=== PATIENT | female | born 1940 | race Caucasian/White ===

== ENCOUNTER 2020-01-13 07:05 | Outpatient (CLI) | payer MEDICARE, OTHER, SELFPAY ==
[2020-01-13 07:59] LABS: Hemoglobin A1C 5.8 % (<5.7)
[2020-01-13 08:04] LABS: Alanine Aminotransferase 17 U/L (4-35); Albumin Level 4.3 g/dL (3.5-5.1); Alkaline Phosphatase 81 U/L (38-126); Aspartate Amino Transferase 27 U/L (14-36); Bilirubin,Total 0.6 mg/dL (0.2-1.3); Blood Urea Nitrogen 22 mg/dL (7-17); Calcium 9.2 mg/dL (8.4-10.2); Carbon Dioxide 31 mmol/L (22-30); Chloride 91 mmol/L (98-107); Cholesterol 225 mg/dL (0-200); Estimated Glomerular Filt Rate 53; Glucose 96 mg/dL (65-105); HDL Direct 79 mg/dL; Potassium 4.1 mmol/L (3.4-5.0); Sodium 129 mmol/L (137-145); Triglycerides 124 mg/dL (<150)
[2020-01-13 08:07] LABS: Alanine Aminotransferase 17 U/L (4-35); Albumin Level 4.3 g/dL (3.5-5.1); Alkaline Phosphatase 82 U/L (38-126); Aspartate Amino Transferase 27 U/L (14-36); Bilirubin,Total 0.5 mg/dL (0.2-1.3)
[2020-01-13 08:14] LABS: LDL Cholesterol Direct 99 mg/dL
== END 2020-01-13 07:06 | disposition home or self-care (01) ==
PROVIDERS: PCP Internal Medicine; Referring Provider Nurse Practitioner; Visit Provider Internal Medicine
DX: E78.5 Hyperlipidemia, unspecified (principal); I10 Essential (primary) hypertension; R11.0 Nausea; R73.02 Impaired glucose tolerance (oral)
CPT/HCPCS: 36415; 80053; 80061; 80076; 82248; 83036

== ENCOUNTER 2020-07-13 06:54 | Outpatient (CLI) | payer MEDICARE, OTHER, SELFPAY ==
[2020-07-13 08:09] LABS: Alanine Aminotransferase 16 U/L (4-35); Albumin Level 4.3 g/dL (3.5-5.1); Alkaline Phosphatase 80 U/L (38-126); Anion Gap 7 mmol/L (8-16); Aspartate Amino Transferase 29 U/L (14-36); Bilirubin,Total 0.6 mg/dL (0.2-1.3); Blood Urea Nitrogen 18 mg/dL (7-17); Calcium 9.5 mg/dL (8.4-10.2); Carbon Dioxide 32 mmol/L (22-30); Chloride 92 mmol/L (98-107); Cholesterol 233 mg/dL (0-200); Estimated Glomerular Filt Rate 60; Glucose 101 mg/dL (65-105); HDL Direct 71 mg/dL; Potassium 4.1 mmol/L (3.4-5.0); Sodium 131 mmol/L (137-145); Triglycerides 137 mg/dL (<150)
[2020-07-13 08:11] LABS: Hemoglobin A1C 5.2 % (<5.7)
[2020-07-13 08:20] LABS: LDL Cholesterol Direct 112 mg/dL
== END 2020-07-13 06:55 | disposition home or self-care (01) ==
PROVIDERS: PCP Internal Medicine; Visit Provider Internal Medicine
DX: E78.5 Hyperlipidemia, unspecified (principal); R73.02 Impaired glucose tolerance (oral); I10 Essential (primary) hypertension
CPT/HCPCS: 36415; 80053; 80061; 83036

== ENCOUNTER 2020-07-20 07:01 | Outpatient (CLI) | payer MEDICARE, OTHER, SELFPAY ==
--- NOTE | ~2020-07-20 | XR_ITS ---
EXAMINATION: XR foot RT min 3V DATE: 07/20/2020 07:27 INDICATION: Left foot pain post fall TECHNIQUE: Dorsoplantar, two oblique and lateral views of the left foot were obtained. COMPARISON: None. FINDINGS: Bone alignment is normal. Diffuse osteopenia. No fracture. Polyarticular osteoarthritis, moderate sev erity at the first metatarsophalangeal and third tarsal metatarsal joints and mild at multiple additi onal joints in the mid and forefeet. Moderate-sized plantar calcaneal spur. Soft tissues are unremark able. IMPRESSION: 1. Mild to moderate polyarticular osteoarthritis in the right foot. No acute osseous abnormality. Reviewed, dictated and finalized at location B. OR RESERVATIONS AGENT IMPRESSION: 1. Mild to moderate polyarticular osteoarthritis in the right foot. No acute os seous abnormality.
== END 2020-07-20 07:02 | disposition home or self-care (01) ==
PROVIDERS: PCP Internal Medicine; Visit Provider Internal Medicine
DX: M19.071 Primary osteoarthritis, right ankle and foot (principal); M85.871 Other specified disorders of bone density and structure, right ankle and foot
CPT/HCPCS: 73630

== ENCOUNTER 2021-01-10 06:52 | Outpatient (CLI) | payer MEDICARE, OTHER, SELFPAY ==
[2021-01-10 07:57] LABS: Hemoglobin A1C 5.5 % (<5.7)
[2021-01-10 07:58] LABS: Alanine Aminotransferase 16 U/L (4-35); Albumin Level 4.4 g/dL (3.5-5.1); Alkaline Phosphatase 84 U/L (38-126); Anion Gap 9 mmol/L (8-16); Aspartate Amino Transferase 31 U/L (14-36); Bilirubin,Total 0.5 mg/dL (0.2-1.3); Blood Urea Nitrogen 15 mg/dL (7-17); Calcium 9.7 mg/dL (8.4-10.2); Carbon Dioxide 29 mmol/L (22-30); Chloride 94 mmol/L (98-107); Estimated Glomerular Filt Rate 60; Glucose 96 mg/dL (65-105); Potassium 4.3 mmol/L (3.4-5.0); Sodium 132 mmol/L (137-145)
== END 2021-01-10 06:53 | disposition home or self-care (01) ==
LOC: ANHLAB 06:56
PROVIDERS: PCP Internal Medicine; Visit Provider Internal Medicine
DX: R73.02 Impaired glucose tolerance (oral) (principal); I10 Essential (primary) hypertension
CPT/HCPCS: 36415; 80053; 83036

== ENCOUNTER → 2021-07-15 03:56 | Outpatient (CLI) | payer MEDICARE, OTHER, SELFPAY ==
[2021-07-15 12:42] LABS: Influenza Control Positive
[2021-07-15 19:27] LABS: SARS-CoV-2 RNA PCR Negative
== END ==
PROVIDERS: PCP Internal Medicine; Visit Provider Internal Medicine
DX: Z20.822 Contact with and (suspected) exposure to COVID-19 (principal)
CPT/HCPCS: 87804; C9803; U0003; U0005

== ENCOUNTER 2021-07-22 06:47 | Outpatient (CLI) | payer MEDICARE, OTHER, SELFPAY ==
[2021-07-22 07:37] LABS: Alanine Aminotransferase 26 U/L (4-35); Albumin Level 4.3 g/dL (3.5-5.1); Alkaline Phosphatase 89 U/L (38-126); Anion Gap 5 mmol/L (8-16); Aspartate Amino Transferase 30 U/L (14-36); Bilirubin,Total 0.5 mg/dL (0.2-1.3); Blood Urea Nitrogen 14 mg/dL (7-17); Calcium 9.4 mg/dL (8.4-10.2); Carbon Dioxide 33 mmol/L (22-30); Chloride 100 mmol/L (98-107); Cholesterol 180 mg/dL (0-200); Estimated Glomerular Filt Rate 60; Glucose 100 mg/dL (65-110); HDL Direct 64 mg/dL; Potassium 4.3 mmol/L (3.4-5.0); Sodium 138 mmol/L (137-145); Triglycerides 103 mg/dL (<150)
[2021-07-22 07:49] LABS: LDL Cholesterol Direct 80 mg/dL
[2021-07-22 08:17] LABS: Vitamin D 25 Hydroxy 70.3 ng/mL
[2021-07-22 09:22] LABS: Hemoglobin A1C 5.5 % (<5.7)
== END 2021-07-22 06:48 | disposition home or self-care (01) ==
PROVIDERS: PCP Internal Medicine; Visit Provider Nurse Practitioner
DX: R73.02 Impaired glucose tolerance (oral) (principal); E78.5 Hyperlipidemia, unspecified; Z13.21 Encounter for screening for nutritional disorder
CPT/HCPCS: 36415; 80053; 80061; 82306; 83036

== ENCOUNTER 2021-11-28 06:42 | Outpatient (CLI) | payer MEDICARE, OTHER, SELFPAY ==
[2021-11-28 07:23] LABS: Alanine Aminotransferase 16 U/L (4-35); Albumin Level 4.3 g/dL (3.5-5.1); Alkaline Phosphatase 98 U/L (38-126); Anion Gap 3 mmol/L (8-16); Aspartate Amino Transferase 31 U/L (14-36); Bilirubin,Total 0.6 mg/dL (0.2-1.3); Blood Urea Nitrogen 19 mg/dL (7-17); Carbon Dioxide 30 mmol/L (22-30); Chloride 102 mmol/L (98-107); Cholesterol 235 mg/dL (0-200); Estimated Glomerular Filt Rate 60; Glucose 92 mg/dL (65-110); HDL Direct 70 mg/dL; Potassium 4.6 mmol/L (3.4-5.0); Sodium 135 mmol/L (137-145); Triglycerides 102 mg/dL (<150)
[2021-11-28 07:34] LABS: LDL Cholesterol Direct 109 mg/dL
[2021-11-28 08:15] LABS: Hemoglobin A1C 5.4 % (<5.7)
[2021-11-28 08:51] LABS: Vitamin D 25 Hydroxy 49.3 ng/mL
== END 2021-11-28 06:43 | disposition home or self-care (01) ==
LOC: ANHLAB 06:45
PROVIDERS: PCP Internal Medicine; Visit Provider Internal Medicine
DX: R73.02 Impaired glucose tolerance (oral) (principal); I10 Essential (primary) hypertension; E78.5 Hyperlipidemia, unspecified; E55.9 Vitamin D deficiency, unspecified
CPT/HCPCS: 36415; 80053; 80061; 82306; 83036

== ENCOUNTER 2021-12-05 11:05 | Emergency (ER) | payer MEDICARE, OTHER, SELFPAY ==
--- NOTE | ~2021-12-05 | XR_ITS ---
EXAMINATION: XR ankle RT min 3V INDICATION: Right ankle pain TECHNIQUE: Four views of the right ankle are obtained. COMPARISON: None available FINDINGS: There is medial soft tissue swelling of ankle. Bone alignment is normal. There is no fractu re. A plantar calcaneal enthesophyte is noted. IMPRESSION: 1. Medial soft tissue swelling of ankle without acute osseous abnormality. Reviewed, dictated and finalized at location A.
--- NOTE | ~2021-12-05 | XR_ITS ---
EXAMINATION: XR knee RT 3V DATE: 12/05/2021 11:33 INDICATION: Right knee pain TECHNIQUE: Three views of the right knee were obtained. COMPARISON: None. FINDINGS: Alignment is normal. No fracture or osteochondral lesion. There are changes of total knee a rthroplasty. No joint effusion/synovitis. Soft tissues are unremarkable. IMPRESSION: 1. No acute osseous abnormality. Reviewed, dictated and finalized at location A.
[2021-12-05 11:12] VITALS: BP 160/85; PULSE 90; RESP 20; TEMP 36.9; O2SAT 98
--- NOTE | 2021-12-05 12:22 | ED.LOWEXIN ---
HPI - Extremity Injury (Lower) General Chief Complaint: Extremity Injury, Lower Stated Complaint: R knee/ankle pain Time Seen by Provider: 12/05/21 12:04 Source: RN notes reviewed History of Present Illness HPI Narrative: Patient presents emergency department from home for right knee and ankle pain. Patient states she has a history of chronic nerve deficits in the bilateral lower legs from previous back surgery she states that yesterday she had been twisting when she felt a pain in her right knee and ankle she states she did not fall to the ground but did twisted both of them she notes pain in these areas since that time she states she has been able to ambulate and did take Tylenol this morning for the pain she denies any hip pain or back pain denies any fevers or chills Related Data Home Medications Medication Instructions Recorded Confirmed Bacillus coagulans 10 billion cell cell PO 07/08/19 11/22/21 capsule,delayed release albuterol sulfate 90 mcg/actuation 2 puff INHALATION Q4H PRN gm 07/08/19 11/22/21 aerosol inhaler carboxymethylcellulose 0.5 1 drop EACH EYE BID 07/08/19 11/22/21 %-glycerin 0.9 % eye drops docusate sodium 50 mg capsule 50 mg PO DAILY 07/08/19 11/22/21 zdtqxzgc-pnk-gsdlp acid 0.4 1 tablet PO DAILY 07/08/19 11/22/21 mg-lycopene 300 mcg-lutein 250 mcg tablet umeclidinium 62.5 mcg-vilanterol 1 inhalation INHALATION DAILY 07/08/19 11/22/21 25 mcg/actuation powdr for inhalation meloxicam 15 mg tablet 15 mg PO DAILY 01/13/20 11/22/21 acetaminophen 650 mg 650 mg PO Q8H 07/26/21 11/22/21 tablet,extended release Allergies Allergy/AdvReac Type Severity Reaction Status Date / Time codeine Allergy Intermediate Syncope Verified 12/05/21 11:15 hydrocodone Allergy Unknown syncope Verified 12/05/21 11:15 Review of Systems Review of Systems: Gen.: Denies fevers or chills Musculoskeletal: See HPI Neuro: Reports chronic lower extremity numbness Skin: Denies rash Endo: Denies DM PMFSH Past Medical History Medical History (Updated 12/05/21 @ 12:24 by Izaiah Boyd DO) Chronic back pain COPD (chronic obstructive pulmonary disease) Essential hypertension Gastroesophageal reflux disease Herpes zoster without complication Hyperlipemia Impaired glucose tolerance Peripheral polyneuropathy Family History Family History Mother Family history of osteoporosis Father Acute myocardial infarction, Onset Age: 83 Patient's father is Sibling Family history of lymphoma Family history of malignant neoplasm of male breast Social History Social History Smoking packs per day: 1 Smoking cigarettes per day: 20.0 Years smoked: 15 Smoking pack-years: 15.00 Smoking status: Former smoker Tobacco type: cigarettes Smoking end date: 08/06/95 Alcohol intake: current Alcohol use details: social Substance use: never Substance use type: does not use Exam Narrative: APPEARANCE: No acute distress, nontoxic, resting in bed Eyes: EOMI HEENT: Normocephalic, atraumatic, RESPIRATORY: No respiratory distress MUSCULOSKELETAl: Tender palpation of the right lateral knee no swelling or ecchymosis no tenderness of the anterior medial or posterior knee full range of motion without pain no tenderness palpation of the right anterior lateral or medial ankle mild swelling over the lateral ankle no tenderness of the remaining area of the foot dorsalis pedis pulse 2+ patient with peripheral neuropathy in the bilateral lower extremities from knees down NEURO: Awake and alert. Following commands, speech normal, no focal deficits SKIN:: Warm, dry. Normal Color no rash or lesions Course Course Emergency Course: Discussed with patient results of workup and diagnosis. Discussed need for follow-up with primary care, proper use of medication, and reasons to return to the emergency dep
== END 2021-12-05 12:35 | disposition home or self-care (01) ==
PROVIDERS: Emergency Provider Emergency Medicine; PCP Internal Medicine
DX: S96.911A Strain of unspecified muscle and tendon at ankle and foot level, right foot, initial encounter (principal); S83.91XA Sprain of unspecified site of right knee, initial encounter; J44.9 Chronic obstructive pulmonary disease, unspecified; I10 Essential (primary) hypertension; K21.9 Gastro-esophageal reflux disease without esophagitis; E78.5 Hyperlipidemia, unspecified; G62.9 Polyneuropathy, unspecified; Z87.891 Personal history of nicotine dependence; X50.9XXA Other and unspecified overexertion or strenuous movements or postures, initial encounter
CPT/HCPCS: 73562; 73610; 99284

== ENCOUNTER 2022-04-10 15:07 | Emergency (ER) | payer MEDICARE, OTHER, SELFPAY ==
--- NOTE | ~2022-04-10 | XR_ITS ---
EXAM: XR knee RT min 4V DATE: 04/10/2022 16:24 HISTORY: pain, spasms . COMPARISON: None available. FINDINGS: Decreased mineralization. Right knee arthroplasty. No fracture or dislocation. No lytic or blastic lesion. Joint spaces are maintained. No erosion or periosteal change. Soft tissues within no rmal limits. IMPRESSION: No acute osseous finding in the right knee. Reviewed, dictated and finalized at location K.
[2022-04-10 15:09] VITALS: BP 212/114; PULSE 87; RESP 18; TEMP 36.7; O2SAT 100
--- NOTE | 2022-04-10 15:58 | ED.LOWEXIN ---
HPI - Extremity Injury (Lower) General Chief Complaint: Extremity Injury, Lower Stated Complaint: right knee pain Time Seen by Provider: 04/10/22 15:30 Source: patient Mode of arrival: ambulatory Limitations: no limitations History of Present Illness HPI Narrative: Patient is an 81-year-old female who presents to ED with report of right knee pain. Patient reports a history of nerve damage and numbness in her lower back and BLE, particularly her RLE, from a previous spinal surgery. Around 2 am this morning she developed pain in her R anterior knee. She states the pain in her knee radiates up to her mid thigh and down to her mid oneill. No pain in R hip or ankle. Pain is episodic and electric shock spasm-like, occurring several times a minute. She has been taking Tylenol today for this without relief. No recent injury, fall, strenuous activity. Patient uses a walker for assistance with ambulation. No significant swelling. No fevers. Otherwise recently has been in her normal state of health. Related Data Home Medications Medication Instructions Recorded Confirmed Bacillus coagulans 10 billion cell cell PO 07/08/19 03/28/22 capsule,delayed release (Probiotic (B. coagulans)) albuterol sulfate 90 mcg/actuation 2 puff inhalation Q4H PRN 07/08/19 03/28/22 aerosol inhaler (ProAir HFA) carboxymethylcellulose 0.5 1 drop ophthalmic (eye) BID 07/08/19 03/28/22 %-glycerin 0.9 % eye drops (Refresh Optive) docusate sodium 50 mg capsule 50 mg PO DAILY 07/08/19 03/28/22 (Colace Clear) jrpvrwev-olg-hlstv acid 0.4 1 tablet PO DAILY 07/08/19 03/28/22 mg-lycopene 300 mcg-lutein 250 mcg tablet (Centrum Silver) umeclidinium 62.5 mcg-vilanterol 1 inhalation inhalation DAILY 07/08/19 03/28/22 25 mcg/actuation powdr for inhalation (Anoro Ellipta) meloxicam 15 mg tablet 15 mg PO DAILY 01/13/20 03/28/22 acetaminophen 650 mg 650 mg PO Q8H 07/26/21 03/28/22 tablet,extended release (Tylenol 8 Hour) Allergies Allergy/AdvReac Type Severity Reaction Status Date / Time codeine Allergy Intermediate Syncope Verified 04/10/22 15:12 hydrocodone Allergy Unknown syncope Verified 04/10/22 15:12 Review of Systems Review of Systems: CONSTITUTIONAL: Denies fever, chills, or sweats. CARDIOVASCULAR: Denies chest pain. RESPIRATORY: Denies dyspnea. GASTROINTESTINAL: Denies nausea, vomiting. SKIN: Denies swelling of R knee. MUSCULOSKELETAL: Reports R knee pain and spasms. Denies R ankle/hip pain. All systems reviewed & are unremarkable except as noted in HPI and below PMFSH Past Medical History Medical History (Updated 04/10/22 @ 17:36 by Kenya Quevedo PA-C) Acquired right foot drop Chronic back pain COPD (chronic obstructive pulmonary disease) Essential hypertension Gastroesophageal reflux disease Herpes zoster without complication Hyperlipemia Impaired glucose tolerance Knee pain Lumbar back pain with radiculopathy affecting lower extremity Muscle spasms of lower extremity Peripheral polyneuropathy Surgical History Surgical History (Updated 04/10/22 @ 16:29 by Kenya Quevedo PA-C) History of spinal surgery Family History Family History Mother Family history of osteoporosis Father Acute myocardial infarction, Onset Age: 83 Patient's father is Sibling Family history of lymphoma Family history of malignant neoplasm of male breast Social History Social History Smoking packs per day: 1 Smoking cigarettes per day: 20.0 Years smoked: 15 Smoking pack-years: 15.00 Smoking status: Former smoker Tobacco type: cigarettes Smoking end date: 08/06/95 Alcohol intake: never Substance use type: does not use Gender identity (if verbalized by the patient): Female Exam Narrative: GENERAL: Well appearing, well-nourished, non-toxic, in mild acute distress. Sitting in w
[2022-04-10] MEDS: diazePAM INJ (*CRX) 10 MG/2 ML SYRINGE 2 MG IM (16:21)
[2022-04-10 18:05] VITALS: BP 204/93; PULSE 71; RESP 20; O2SAT 100
== END 2022-04-10 18:06 | disposition home or self-care (01) ==
PROVIDERS: Emergency Provider Emergency Medicine; PCP Internal Medicine
DX: M25.561 Pain in right knee (principal); M62.838 Other muscle spasm; J44.9 Chronic obstructive pulmonary disease, unspecified; I10 Essential (primary) hypertension; K21.9 Gastro-esophageal reflux disease without esophagitis; E78.5 Hyperlipidemia, unspecified; G62.9 Polyneuropathy, unspecified; Z87.891 Personal history of nicotine dependence
CPT/HCPCS: 73564; 96372; 99283; J3360

== ENCOUNTER 2022-07-14 06:41 | Outpatient (CLI) | payer MEDICARE, OTHER, SELFPAY ==
[2022-07-14 07:42] LABS: Alanine Aminotransferase 21 U/L (6-35); Albumin Level 4.5 g/dL (3.5-5.1); Alkaline Phosphatase 97 U/L (38-126); Anion Gap 2 mmol/L (8-16); Aspartate Amino Transferase 28 U/L (14-36); Bilirubin,Total 0.7 mg/dL (0.2-1.3); Blood Urea Nitrogen 17 mg/dL (7-17); Calcium 8.9 mg/dL (8.4-10.2); Carbon Dioxide 34 mmol/L (22-30); Chloride 101 mmol/L (98-107); Cholesterol 228 mg/dL (0-200); Estimated Glomerular Filt Rate 60; Glucose 89 mg/dL (65-110); HDL Direct 74 mg/dL; Potassium 4.3 mmol/L (3.4-5.0); Sodium 137 mmol/L (137-145); Triglycerides 98 mg/dL (<150)
[2022-07-14 07:53] LABS: LDL Cholesterol Direct 106 mg/dL
[2022-07-14 08:45] LABS: Hemoglobin A1C 5.6 % (<5.7)
== END 2022-07-14 06:42 | disposition home or self-care (01) ==
PROVIDERS: PCP Internal Medicine; Visit Provider Internal Medicine
DX: E78.5 Hyperlipidemia, unspecified (principal); I10 Essential (primary) hypertension; R73.02 Impaired glucose tolerance (oral)
CPT/HCPCS: 36415; 80053; 80061; 83036

== ENCOUNTER 2023-01-19 06:35 | Outpatient (CLI) | payer MEDICARE, OTHER, SELFPAY ==
[2023-01-19 07:12] LABS: Alanine Aminotransferase 23 U/L (6-35); Albumin Level 4.3 g/dL (3.5-5.1); Alkaline Phosphatase 91 U/L (38-126); Anion Gap 4 mmol/L (8-16); Aspartate Amino Transferase 31 U/L (14-36); Bilirubin,Total 0.6 mg/dL (0.2-1.3); Blood Urea Nitrogen 19 mg/dL (7-17); Calcium 8.8 mg/dL (8.4-10.2); Carbon Dioxide 32 mmol/L (22-30); Chloride 97 mmol/L (98-107); Cholesterol 208 mg/dL (0-200); Estimated Glomerular Filt Rate > 60; Glucose 88 mg/dL (65-110); HDL Direct 73 mg/dL; Potassium 4.2 mmol/L (3.4-5.0); Sodium 133 mmol/L (137-145); Triglycerides 149 mg/dL (<150)
[2023-01-19 07:23] LABS: LDL Cholesterol Direct 102 mg/dL
[2023-01-19 07:29] LABS: Vitamin D 25 Hydroxy 40.8 ng/mL
[2023-01-19 11:17] LABS: Hemoglobin A1C 5.5 % (<5.7)
== END 2023-01-19 06:36 | disposition home or self-care (01) ==
PROVIDERS: PCP Family Medicine; Visit Provider Internal Medicine
DX: E55.9 Vitamin D deficiency, unspecified (principal); E78.5 Hyperlipidemia, unspecified; I10 Essential (primary) hypertension; R73.02 Impaired glucose tolerance (oral)
CPT/HCPCS: 36415; 80053; 80061; 82306; 83036

== ENCOUNTER 2023-05-30 08:44 | Outpatient (CLI) | payer MEDICARE, OTHER, SELFPAY ==
--- NOTE | ~2023-05-30 | DEXA_ITS ---
Bone Density Report Name: SATISH VELEZ Age: 82 Sex: Female Ethnicity: White Date of : 1940 Indication: postmenopausal; screening for osteoporosis; height loss; hysterectomy; Referring Provider: MARYLIN ROJAS Study: Bone densitometry was performed. Exam Date: May 30, 2023 Accession number: [id number] Bone Density: Region BMD T-score Z-score Classification Femoral Neck (Left) 0.713 -1.2 1.2 Osteopenia Total Hip (Left) 0.822 -1.0 1.3 Normal Femoral Neck (Right) 0.820 -0.3 2.2 Normal Total Hip (Right) 0.953 0.1 2.3 Normal Total Hip Mean 0.888 -0.5 1.8 Normal World Health Organization criteria for BMD impression classify patients as: Normal (T-score at or above -1.0), Osteopenia (T-score between -1.0 and -2.5), or Osteoporosis (T-score at or below -2.5). 10-year Fracture Risk(1): Major Osteoporotic Fracture 11% Hip Fracture 2.6% Reported Risk Factors: [place] (), Neck BMD=0.713, BMI=35.7 (1) FRAX(R) Version 3.08. Fracture probability calculated for an untreated patient. Fracture probability may be lower if the patient has received treatment. Clinical Information Provided by Patient: Has used the following medications: Vitamin D, Calcium Has the following medical conditions: Hysterectomy Patient maximum height was 63 Does not regularly consume dairy products Drinks caffeinated beverages Onset of menses at age 15 Number of children 4 Impression: The patient has low bone mass, based on the Left Femoral Neck T-score. The patient has an estimated ten-year risk of hip fracture of 2.6% and an estimated ten-year risk of major fracture of 11%, based on the WHO FRAX algorithm. Discussion: BONE DENSITY IS LOW AT ONE OR MORE SKELETAL SITES. This patient's lowest T-score is low at one or more skeletal sites. It meets the World Health Organization's (WHO) criteria for ?low bone mass? (T-score between -1.0 and -2.5). The patient's 10-year risk of fracture as calculated by FRAX is less than the threshold where pharmacological therapy is recommended by the National Osteoporosis Foundation (NOF). However, all treatment decisions require clinical judgment and consideration of individual patient factors, including patient preferences, comorbidities, previous drug use, risk factors not captured in the FRAX model (e.g., frailty, falls, vitamin D deficiency, increased bone turnover, interval significant decline in bone density) and possible under or overestimation of fracture risk by FRAX. The patient should follow a healthful lifestyle (good nutrition with adequate calcium and vitamin D, and appropriate weight-bearing exercise). Follow-Up: Consider repeating this study in 2 to 3 years to reassess this patient's status, or sooner if there is some new clinical indication. Reported by: QUIN on 10
== END 2023-05-30 08:45 | disposition home or self-care (01) ==
LOC: ANHIMG 08:45
PROVIDERS: PCP Family Medicine; Visit Provider Nurse Practitioner Family
DX: M85.80 Other specified disorders of bone density and structure, unspecified site (principal); Z78.0 Asymptomatic menopausal state
CPT/HCPCS: 77080

== ENCOUNTER 2023-07-16 06:46 | Outpatient (CLI) | payer MEDICARE, OTHER, SELFPAY ==
[2023-07-16 07:41] LABS: Basophils Percent Auto 0.7 % (0.2-1.2); Eosinophils Absolute Auto 0.1 K/mm3 (0-0.3); Eosinophils Percent Auto 1.8 % (0-4.4); Hemoglobin 14.1 g/dL (12.0-15.0); Immature Granulocyte Absolute 0.02 K/mm3 (0.00-0.031); Immature Granulocyte Percent A 0.3 % (0-0.5); Lymphocytes Absolute Auto 1.84 K/mm3 (0.9-3.2); Lymphocytes Percent Auto 30.6 % (18.3-44.2); Mean Corpuscular HGB Conc 32.8 g/dl (32-36); Mean Corpuscular Hemoglobin 29.9 pg (26-34); Mean Corpuscular Volume 91.3 fl (80-100); Mean Platelet Volume 9.5 fl (7.4-10.4); Monocytes Absolute Auto 0.5 K/mm3 (0.1-0.6); Monocytes Percent Auto 8.2 % (2.6-8.5); Neutrophils Absolute Auto 3.5 K/mm3 (1.3-6.7); Neutrophils Percent Auto 58.4 % (45.5-73.1); Platelet Count Result 209 k/mm3 (150-375); Red Blood Count 4.71 M/mm3 (4.2-5.4); Red Cell Distribution Width 13.4 % (11.5-14.5)
[2023-07-16 07:51] LABS: Alanine Aminotransferase 18 U/L (6-35); Albumin Level 4.2 g/dL (3.5-5.1); Alkaline Phosphatase 90 U/L (38-126); Anion Gap 4 mmol/L (8-16); Aspartate Amino Transferase 26 U/L (14-36); Bilirubin,Total 0.6 mg/dL (0.2-1.3); Blood Urea Nitrogen 17 mg/dL (7-17); Carbon Dioxide 30 mmol/L (22-30); Chloride 100 mmol/L (98-107); Estimated Glomerular Filt Rate 60; Glucose 85 mg/dL (65-110); Potassium 4.4 mmol/L (3.4-5.0); Sodium 134 mmol/L (137-145)
[2023-07-16 09:14] LABS: Appearance Urine Clear (Clear); Bilirubin Urine Negative (Negative); Blood Urine Negative (Negative); Color Urine Yellow (Yellow); Glucose Urine UA Negative (Negative); Ketones Urine Negative (Negative); Leukocyte Esterase Ur Negative LEU/UL (NEGATIVE); Nitrate Urine Negative (Negative); Protein Urine Negative (Negative); Urobilinogen Urine 0.2 mg/dL (<2.0)
[2023-07-16 09:16] LABS: Add Urine Microscopic? NO
[2023-07-16 09:49] LABS: Creatinine Urine 50.7 mg/dL
[2023-07-16 09:54] LABS: MALB Creatinine Ratio 19.5 mg/g (0-30); Microalbumin Urine Random 9.9 mg/L (0-16.7)
== END 2023-07-16 06:47 | disposition home or self-care (01) ==
PROVIDERS: PCP Family Medicine; Visit Provider Nurse Practitioner Family
DX: E78.5 Hyperlipidemia, unspecified (principal); I10 Essential (primary) hypertension; G62.9 Polyneuropathy, unspecified; J44.9 Chronic obstructive pulmonary disease, unspecified
CPT/HCPCS: 36415; 80053; 81003; 82043; 85025

== ENCOUNTER 2024-01-25 07:06 | Outpatient (CLI) | payer MEDICARE, SELFPAY ==
[2024-01-25 08:23] LABS: Alanine Aminotransferase 19 U/L (6-35); Albumin Level 4.5 g/dL (3.5-5.1); Alkaline Phosphatase 84 U/L (38-126); Anion Gap 7 mmol/L (4-12); Aspartate Amino Transferase 27 U/L (14-36); Bilirubin,Total 0.6 mg/dL (0.2-1.3); Blood Urea Nitrogen 15 mg/dL (7-17); Calcium 9.2 mg/dL (8.4-10.2); Carbon Dioxide 28 mmol/L (22-30); Chloride 101 mmol/L (98-107); Cholesterol 239 mg/dL (0-200); Estimated Glomerular Filt Rate > 60; Glucose 81 mg/dL (65-110); HDL Direct 86 mg/dL; Potassium 4.2 mmol/L (3.4-5.0); Sodium 136 mmol/L (137-145); Triglycerides 130 mg/dL (<150)
[2024-01-25 08:33] LABS: LDL Cholesterol Direct 115 mg/dL
== END 2024-01-25 07:07 | disposition home or self-care (01) ==
PROVIDERS: PCP Family Medicine; Visit Provider Nurse Practitioner Family
DX: E78.5 Hyperlipidemia, unspecified (principal); G62.9 Polyneuropathy, unspecified; G89.29 Other chronic pain; I10 Essential (primary) hypertension; J44.9 Chronic obstructive pulmonary disease, unspecified; K21.9 Gastro-esophageal reflux disease without esophagitis; M21.371 Foot drop, right foot; M54.16 Radiculopathy, lumbar region; M54.9 Dorsalgia, unspecified; M62.838 Other muscle spasm; Z98.890 Other specified postprocedural states
CPT/HCPCS: 36415; 80053; 80061

== ENCOUNTER 2024-05-26 06:40 | Outpatient (CLI) | payer MEDICARE, SELFPAY ==
[2024-05-26 07:30] LABS: Basophils Percent Auto 0.3 % (0.2-1.2); Eosinophils Absolute Auto 0.1 K/mm3 (0-0.3); Eosinophils Percent Auto 1.5 % (0-4.4); Hematocrit 41.4 % (37.0-47.0); Hemoglobin 13.9 g/dL (12.0-15.0); Immature Granulocyte Absolute 0.02 K/mm3 (0.00-0.031); Immature Granulocyte Percent A 0.3 % (0-0.5); Lymphocytes Absolute Auto 1.99 K/mm3 (0.9-3.2); Mean Corpuscular HGB Conc 33.6 g/dl (32-36); Mean Corpuscular Volume 92.2 fl (80-100); Mean Platelet Volume 9.2 fl (7.4-10.4); Monocytes Absolute Auto 0.5 K/mm3 (0.1-0.6); Monocytes Percent Auto 8.3 % (2.6-8.5); Neutrophils Absolute Auto 3.4 K/mm3 (1.3-6.7); Neutrophils Percent Auto 56.6 % (45.5-73.1); Platelet Count Result 224 k/mm3 (150-375); Red Blood Count 4.49 M/mm3 (4.2-5.4); Red Cell Distribution Width 13.5 % (11.5-14.5)
[2024-05-26 08:09] LABS: Alanine Aminotransferase 14 U/L (6-35); Albumin Level 4.2 g/dL (3.5-5.1); Alkaline Phosphatase 73 U/L (38-126); Anion Gap 7 mmol/L (4-12); Aspartate Amino Transferase 25 U/L (14-36); Bilirubin,Total 0.7 mg/dL (0.2-1.3); Blood Urea Nitrogen 17 mg/dL (7-17); Calcium 9.3 mg/dL (8.4-10.2); Carbon Dioxide 28 mmol/L (22-30); Chloride 97 mmol/L (98-107); Cholesterol 245 mg/dL (0-200); Estimated Glomerular Filt Rate > 60; Glucose 87 mg/dL (65-110); HDL Direct 79 mg/dL; Potassium 4.2 mmol/L (3.4-5.0); Sodium 132 mmol/L (137-145); Triglycerides 129 mg/dL (<150)
[2024-05-26 08:14] LABS: LDL Cholesterol Direct 111 mg/dL
[2024-05-26 08:38] LABS: Vitamin D 25 Hydroxy 37.3 ng/mL
== END 2024-05-26 06:41 | disposition home or self-care (01) ==
PROVIDERS: PCP Nurse Practitioner Family; Visit Provider Nurse Practitioner Family
DX: E78.5 Hyperlipidemia, unspecified (principal); G62.9 Polyneuropathy, unspecified; G89.29 Other chronic pain; I10 Essential (primary) hypertension; J44.9 Chronic obstructive pulmonary disease, unspecified; K21.9 Gastro-esophageal reflux disease without esophagitis; M21.371 Foot drop, right foot; M54.16 Radiculopathy, lumbar region; M54.9 Dorsalgia, unspecified; M62.838 Other muscle spasm; Z98.890 Other specified postprocedural states; Z79.899 Other long term (current) drug therapy
CPT/HCPCS: 36415; 80053; 80061; 82306; 85025

== ENCOUNTER 2024-06-14 11:06 | Observation (INO) | payer MEDICARE, SELFPAY ==
[2024-06-14] VITALS (15 sets, daily range): BP systolic 144–202; BP diastolic 55–100; PULSE 70–94; RESP 15–19; TEMP 36.4–36.6; O2SAT 97–100; BMI 37.3
--- NOTE | ~2024-06-14 | MR_ITS ---
MRI of the brain Clinical History: CVA Technique: Axial and sagittal T1-weighted images were acquired. These were followed by axial T2-weigh malaika, diffusion weighted, gradient, and FLAIR images. Findings: There is no acute infarct, intracranial hemorrhage, or mass lesion. There is moderate chron ic white matter changes in the periventricular white matter bilaterally and maciel. Ventricles and subarachnoid spaces are mildly dilated. Orbits are unremarkable. Paranasal sinuses and mastoid air cells are clear. Major intracranial flow voids are intact. Sagittal midline structures are intact. IMPRESSION: No acute infarct, intracranial hemorrhage, or mass lesion. Moderate chronic microvascular ischemic change and mild generalized atrophy. Reviewed, dictated and finalized at [facility]. REPLACEMENT ORDERER
--- NOTE | ~2024-06-14 | CT_ITS ---
EXAMINATION: CTA brain carotid DATE: 06/15/2024 21:12 INDICATION: transient ischemic attack, cerebrovascular diseas TECHNIQUE: Computed tomographic angiography (CTA) of the head and neck was performed with 100 mL Omni paque-350 intravenous contrast. Automated exposure control and iterative reconstruction technique wer e employed. The dose-length product was 855.67 mGy-cm. Maximum intensity projection and volume render ed 3D-reconstructions were created by the technologist on a separate workstation. COMPARISON: CT brain 06/14/2024; MR brain 06/15/2024. 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 No large vessel occlusion, high flow vascular malfo rmation, nidus or extravasation. Atherosclerotic calcifications of the cavernous carotids bilaterally , greater on the right, where there is also a short segment moderate stenosis. Short segment severe s tenosis in the distal aspect of the right P1 segment. Patent cerebral veins. Symmetric parenchymal en hancement. CTA NECK: Aortic arch and proximal great vessels: Normal arch anatomy. Moderate arch calcification.. Right common carotid, carotid bifurcation, and internal carotid artery: Minimal calcified plaque at t he bifurcation.There is 0% stenosis of the proximal right internal carotid artery relative to normal distal artery lumen diameter (NASCET criteria). Left common carotid, carotid bifurcation, and internal carotid artery: Mild calcified and noncalcifie d plaque at the bifurcation.There is 0% stenosis of the proximal left internal carotid artery relativ e to normal distal artery lumen diameter (NASCET criteria). Vertebral arteries: No significant plaque or stenosis. Left vertebral artery is dominant. Other findings: Cervical spondylosis. Degenerative change in the bilateral TMJs. Stable somewhat spon giform appearing calcification in the inferior bilateral maxillary sinuses, likely calcified inspissa malaika mucus. Emphysematous changes in the lungs. 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 Short segment severe stenosis in the distal right P1 segment. No large vessel intracranial occlusion. No carotid or vertebral artery occlusion, dissection, or significant stenosis. Reviewed, dictated and finalized at location K. A CLASS LINEMAN
--- NOTE | ~2024-06-14 | CT_ITS ---
EXAMINATION: CTA chest PE protocol DATE: 06/14/2024 12:55 INDICATION: Syncope. TECHNIQUE: Computed tomography angiography (CTA) of the chest was performed with 100 mL Omnipaque-350 intravenous contrast timed to evaluate the pulmonary arteries. Coronal maximum intensity projection 3D-reconstructions were created by the technologist. Automated exposure control and iterative reconst ruction technique were employed. The dose-length product was 784.19 mGy-cm. COMPARISON: None. FINDINGS: There is moderate emphysema. Calcified right lung nodules are consistent with old granuloma tous disease. There is mild atelectasis bilaterally. No pleural effusion. The heart size is normal. T here are coronary artery calcifications. No pericardial effusion. There is no pulmonary embolus. Ther e is a moderate-sized sliding hiatal hernia. There is severe cervical spondylosis and mild thoracic s pondylosis. There are changes of posterior fusion procedure in lumbar spine. There are lucencies arou nd the L2 screws, consistent with loosening. IMPRESSION: 1. No pulmonary embolus. 2. Moderate emphysema. 3. Moderate-sized sliding hiatal hernia. 4. Lucencies around the L2 screws, consistent with loosening. Reviewed, dictated and finalized at location A. ICAL SUPPLIES STERILIZER
--- NOTE | ~2024-06-14 | CT_ITS ---
EXAMINATION: CT brain wo con DATE: 06/14/2024 12:55 INDICATION: Syncope. TECHNIQUE: Computed tomography (CT) of the head was performed without intravenous contrast. The mA wa s adjusted according to patient size. Iterative reconstruction technique was employed. The dose-lengt h product was 529.67 mGy-cm. COMPARISON: None FINDINGS: There are scattered areas of low attenuation in the cerebral white matter. There is no intr acranial hemorrhage, acute infarction, or abnormal intracranial mass lesion. There is a prominent per ivascular space in the left basal ganglia. The ventricles are normal in size. The paranasal sinuses a re clear. There are likely changes of ocular lens replacement surgeries. The mastoid air cells are no rmal. IMPRESSION: 1. Moderate nonspecific cerebral white matter disease, which likely represents chronic small vessel i schemic disease. Reviewed, dictated and finalized at location A. STER RECOVERY ANALYST IMPRESSION: 1. Moderate nonspecific cerebral white matter disease, which likely represents chronic small vessel ischemic disease.
--- NOTE | ~2024-06-14 | US_ITS ---
Procedure: Duplex Doppler examination of the bilateral carotids. Indication: Syncope Technique: Real time, color-flow and pulse wave Doppler examination of the bilateral carotids was performed. Findings: Hudson scale ultrasonography of the right neck demonstrated no significant plaque. There was demonstrat ion of normal color-flow and Doppler waveforms within the right common, internal and external carotid arteries. The peak systolic velocities in the right common, internal and external carotid arteries w ere demonstrated to be 64 cm/sec, 86 cm/sec and 81 cm/sec respectively. The right ICA/CCA ratio was 1 .3.The proximal right internal carotid artery demonstrates 0% stenosis relative to the normal distal artery lumen diameter. Hudson scale sonography of the left neck demonstrated no significant plaque. There was demonstration of normal color-flow and wave forms within the left common, internal and external carotid arteries. The peak systolic velocities in the left common, internal and external carotid arteries were demonstrate d to be 91cm/sec, 86 cm/sec and 77 cm/sec respectively. The left ICA/CCA ratio was 1.3. The proximal left internal carotid artery demonstrates 0% stenosis relative to the normal distal artery lumen diam eter. There was antegrade flow demonstrated in the bilateral vertebral arteries. Impression: No hemodynamically significant stenosis of the bilateral internal carotid arteries. Antegrade flow in the bilateral vertebral arteries. Note: The methodology used is an indirect measurement validated against a direct method (such as the NASCET criteria) that compares diameters at the stenosis to the distal ICA. Reviewed, dictated and finalized at location . TAL DIRECTOR Impression: No hemodynamically significant stenosis of the bilateral internal carotid arter ies. Antegrade flow in the bilateral vertebral arteries. Note: The methodology used is an indirect measurement validated against a direct meth od (such as the NASCET criteria) that compares diameters at the stenosis to the distal ICA.
--- NOTE | 2024-06-14 11:19 | ED.GENADULT ---
HPI - General Adult General Chief complaint: Syncope Stated complaint: syncopy History of Present Illness HPI narrative: 83-year-old female presents emergency department for evaluation for a prolonged syncopal episode. Patient had a shower this morning after getting out of shower she had onset of lightheaded and dizziness. Patient laid down on the bed and was reportedly unconscious for approximately 30 minutes. Patient states that she remembers telling her that she felt poorly and the next thing she remembers she was in the back of the ambulance. EMS crew states that when they initially got seen patient was unresponsive but she did began to gain responsiveness as they were loading her in to the trach. Upon arrival emergency department patient is back to her baseline. Patient denies any pain or complaints. Related Data Home Medications Medication Instructions Recorded Confirmed Bacillus coagulans 10 billion cell 1,000,000 cell PO BID 07/08/19 06/14/24 capsule,delayed release (Probiotic (B. coagulans)) carboxymethylcellulose 0.5 1 drop ophthalmic (eye) BID PRN 07/08/19 06/14/24 %-glycerin 0.9 % eye drops Dry Eyes (Refresh Optive) blgvfuhv-dci-ytyzt acid 0.4 1 tablet PO DAILY 07/08/19 06/14/24 mg-lycopene 300 mcg-lutein 250 mcg tablet (Centrum Silver) umeclidinium 62.5 mcg-vilanterol 1 inhalation inhalation DAILY 07/08/19 06/14/24 25 mcg/actuation powdr for inhalation (Anoro Ellipta) meloxicam 15 mg tablet 15 mg PO QAM 01/13/20 06/14/24 acetaminophen 650 mg 650 mg PO BID 07/26/21 06/14/24 tablet,extended release (Tylenol 8 Hour) albuterol sulfate 90 mcg/actuation 2 puff inhalation DAILY PRN 05/28/24 06/14/24 aerosol inhaler (ProAir HFA) Respiratory Distress cephalexin 500 mg capsule 500 mg PO Q12H 05/28/24 06/14/24 fluticasone propionate 50 1 spray intranasal BID PRN sinus 06/14/24 06/14/24 mcg/actuation nasal allergy spray,suspension (Allergy Relief (fluticasone)) Allergies Allergy/AdvReac Type Severity Reaction Status Date / Time codeine Allergy Intermediate Syncope Verified 06/14/24 11:16 hydrocodone Allergy Unknown syncope Verified 06/14/24 11:16 Review of Systems Review of Systems: All systems reviewed & are unremarkable except as noted in HPI and below PMFSH Past Medical History Medical History Acquired right foot drop Anxiety Chronic back pain Chronic hyponatremia Chronic obstructive pulmonary disease Degenerative joint disease Diverticulitis Essential hypertension Gastroesophageal reflux disease Herpes zoster without complication Hyperlipemia Impaired glucose tolerance Peripheral polyneuropathy Restless leg syndrome Surgical History Surgical History History of arthroplasty of left knee (2009) History of bladder suspension procedure History of cataract extraction with lens replacement History of hysterectomy History of lumbar fusion Family History Family History Mother Family history of osteoporosis Father Acute myocardial infarction, Onset Age: 83 Patient's father is Sibling Family history of lymphoma Family history of malignant neoplasm of male breast Social History Social History Social History: Surrogate medical decision maker: Lucho Braswell, spouse. Code status: Full code. Smoking packs per day: 1 Smoking cigarettes per day: 20.0 Years smoked: 15 Smoking pack-years: 15.00 Smoking status: Former smoker Alcohol intake: never Substance use: never Substance use type: does not use Do You Feel Safe in your Home?: Yes Lack of Transportation: No Lack of Food: Never True Current Housing: I Have Housing Concerned About Future Housing: No Difficulty Paying Gas/Electric Bills: No Difficulty Paying for Meds: No Currently Unemployed: No Education: High School Diploma/GED Difficulty w/ Childcare or Family Care: No Living arrangements: with family Occupation/Education: retired Spiritual care concerns: No Agree to blood products: Yes Exam Narrative: APPEARANCE: Well appearing, no pain, no distress, well-nourished. HEAD: normocephalic, atraumatic. EYES: PERRLA/EOMI, conjunctivae clear. NOSE: Normal no drainage EARS:TMS clear with good light reflex. THROAT: Pharynx clear, no exudate. NECK: Supple. No adenopathy, no masses. RESPIRATORY: Airway patent, respirations nonlabored. Clear to auscultation bilaterally, no rales, rhonchi, wheezing. CARDIOVASCULAR: Regular rate and rhythm without murmurs rubs or gallops. ABDOMINAL: Soft, nontender, nondistended, normal bowel sounds MUSCULOSKELETAL: Moves all extremities. Strength/ROM intact, No edema, No calf tenderness. NEURO: Alert. Cranial nerves II through XII intact. grossly intact SKIN: Warm, dry. Normal Color Course Vital Signs Vital signs: Vital Signs Temperature 97.9 F 06/14/24 11:03 Pulse Rate 85 06/14/24 11:03 Respiratory Rate 16 06/14/24 11:03 Blood Pressure 178/65 H 06/14/24 11:03 Pulse Oximetry 100 06/14/24 11:03 Oxygen Delivery Room Air 06/14/24 11:03 Temperature 97.9 F 06/14/24 11:03 Pulse Rate 80 06/14/24 14:00 Respiratory Rate 16 06/14/24 14:00 Blood Pressure 180/70 H 06/14/24 14:00 Pulse Oximetry 97 06/14/24 14:00 Oxygen Delivery Room Air 06/14/24 11:03 Medical Decision Making [facility] Narrative Medical decision making narrative: [age] old female presents emergency department for evaluation for a prolonged syncopal episode. Patient is afebrile with no leukocytosis and a stable hemoglobin of 14.2 no significant abnormalities on the CMP UA was negative for infection patient was negative for influenza RSV and COVID. CTA was negative for pulmonary embolism head CT was negative for acute intracranial abnormality. Due to the prolonged duration of the patient's syncope I discussed case with hospitalist patient was accepted to [facility]. Differential Diagnosis Differential Diagnosis: ACS, cardiac arrhythmia, TIA, CVA, syncope, seizure Vital Signs Vital Signs: Vital Signs Temperature 97.9 F 06/14/24 11:03 Pulse Rate 85 06/14/24 11:03 Respiratory Rate 16 06/14/24 11:03 Blood Pressure 178/65 H 06/14/24 11:03 Pulse Oximetry 100 06/14/24 11:03 Oxygen Delivery Room Air 06/14/24 11:03 Temperature 97.9 F 06/14/24 11:03 Pulse Rate 80 06/14/24 14:00 Respiratory Rate 16 06/14/24 14:00 Blood Pressure 180/70 H 06/14/24 14:00 Pulse Oximetry 97 06/14/24 14:00 Oxygen Delivery Room Air 06/14/24 11:03 Lab Data Lab results reviewed: Yes I reviewed the patient's lab results. 06/14/24 15:38 06/14/24 11:32 Labs: Lab Results 06/14/24 06/14/24 Range/Units 11:32 12:16 PT 13.2 (11.1-14.7) Seconds INR 1.0 APTT 29.0 (22.3-36.8) Seconds Sodium 131 L (137-145) mmol/L Potassium 4.2 (3.4-5.0) mmol/L Chloride 97 L (98-107) mmol/L Carbon Dioxide 26 (22-30) mmol/L Anion Gap 8 (4-12) mmol/L BUN 15 (7-17) mg/dL Creatinine 0.90 (0.7-1.0) mg/dL Estim Creat Clear Calc 45 ml/min Estimated GFR 60 (59 - ) Glucose 145 H (65-110) mg/dL Lactic Acid 2.3 H (0.7-2.0) mmol/L Calcium 8.9 (8.4-10.2) mg/dL Magnesium 2.3 (1.6-2.3) mg/dL Total Bilirubin 0.7 (0.2-1.3) mg/dL AST 27 (14-36) U/L ALT 17 (6-35) U/L Alkaline Phosphatase 63 (38-126) U/L Total Protein 7.0 (6.3-8.2) g/dL Albumin 4.2 (3.5-5.1) g/dL Urine Color Dark yellow (Yellow) Urine Appearance Cloudy H (Clear) Urine pH 6.0 (5.0-9.0) Ur Specific [place] 1.034 (1.001-1.035) Urine Protein 2+ H (Negative) mg/dL Urine Glucose (UA) Negative (Negative) mg/dL Urine Ketones Trace H (Negative) mg/dL Ur Blood (Man) Negative (Negative) Urine Nitrate Negative (Negative) Urine Bilirubin 1+ H (Negative) Urine Urobilinogen 1.0 (<2.0) mg/dL Add Ur Microanalysis Reviewed Leukocyte Esterase Rfl Negative (Negative) IGNACIO/UL Urine RBC 3-5 H (0-2) /hpf Urine WBC 0-5 (0-3) /hpf Ur Squamous Epith Cells Occasional (Few) /hpf Urine Bacteria None seen /hpf Urine Casts >20 Influenza A (RT-PCR) Negative (Negative) Influenza B (RT-PCR) Negative (Negative) RSV (RT-PCR) Negative (Negative) SARS-CoV-2 RNA (RT-PCR) Negative (Negative) Imaging Data Radiologist's impression: Impressions Head CT 06/14/24 13:04 IMPRESSION: 1. Moderate nonspecific cerebral white matter disease, which likely represents chronic small vessel ischemic disease. Chest CTA 06/14/24 13:05 IMPRESSION: 1. No pulmonary embolus. 2. Moderate emphysema. 3. Moderate-sized sliding hiatal hernia. 4. Lucencies around the L2 screws, consistent with loosening. Discharge Plan Discharge Clinical Impression: Episode of syncope Patient Disposition: Still a Patient Condition: Serious
[2024-06-14 12:00] LABS: Prothrombin Time 13.2 Seconds (11.1-14.7)
[2024-06-14 12:02] LABS: Lactic Acid Reflex 2.3 mmol/L (0.7-2.0)
[2024-06-14 12:03] LABS: Alanine Aminotransferase 17 U/L (6-35); Albumin Level 4.2 g/dL (3.5-5.1); Alkaline Phosphatase 63 U/L (38-126); Anion Gap 8 mmol/L (4-12); Aspartate Amino Transferase 27 U/L (14-36); Bilirubin,Total 0.7 mg/dL (0.2-1.3); Blood Urea Nitrogen 15 mg/dL (7-17); Calcium 8.9 mg/dL (8.4-10.2); Carbon Dioxide 26 mmol/L (22-30); Chloride 97 mmol/L (98-107); Estimated CRCL calculation 45 ml/min; Estimated Glomerular Filt Rate 60; Glucose 145 mg/dL (65-110); Magnesium 2.3 mg/dL (1.6-2.3); Potassium 4.2 mmol/L (3.4-5.0); Sodium 131 mmol/L (137-145)
[2024-06-14 12:22] LABS: Influenza A QL RT-PCR Negative (Negative); Influenza B QL RT-PCR Negative (Negative); RSV RNA, RT-PCR Negative (Negative); SARS-CoV-2 RNA PCR Negative (Negative)
[2024-06-14 12:29] LABS: Add Urine Microscopic? YES; Appearance Urine Cloudy (Clear); Bacteria Urine None Seen /hpf; Bilirubin Urine 1+ (Negative); Blood Urine Negative (Negative); Color Urine Dark Yellow (Yellow); Glucose Urine UA Negative (Negative); Ketones Urine Trace mg/dL (Negative); Leukocyte Esterase Ur Negative LEU/UL (Negative); Need Manual Microscopic Reviewed; Nitrate Urine Negative (Negative); Non Pathogenic Casts >20; Protein Urine 2+ mg/dL (Negative); Specific Grav Ur 1.034 (1.001-1.035); Squamous Epithelial Cell Urine Occasional /hpf (Few); WBC Urine 0-5 /hpf (0-3)
--- NOTE | 2024-06-14 12:29 | ECG_ITS ---
Test Date: 2024-06-14 11:11:16 Measurements Intervals [place] Rate: 85 P: 43 TN: 150 QRS: -10 QRSD: 84 T: 22 QT: 340 QTc: 405 Interpretive Statements SINUS RHYTHM BORDERLINE T WAVE ABNORMALITY- ANTERIOR LEADS BASELINE ARTIFACT- I, III, AVR, AVL, AVF BORDERLINE ECG No previous ECG available for comparison Electronically Signed On 06-14-2024 16:16:59 LEAD CUSTODIAN by Angus Taylor D.O.
--- NOTE | 2024-06-14 13:25 | P.HP_ITS ---
H&P: HPI History of Present Illness Date/Time: 06/14/24 14:30 Chief Complaint: Syncope. Narrative: This is an 83-year-old female with chronic obstructive pulmonary disease, anxiety, and gastroesophageal reflux disease who presented to the emergency department via EMS from home for evaluation after syncopal episode. The patient and her spouse provides the following history. She was in her usual state of health when she got up this morning, ate breakfast, and watch some television with her . She then took a shower which was uneventful however while she was getting out of the shower she began to feel weak and dizzy and yelled for her . He heard what sounded like the shower door being slammed shut and found the patient sitting on the toilet. She then slumped forward and went unresponsive. states that her color was normal and she was not cold, clammy, or diaphoretic. He called 911 and by the time EMS arrived approximately 9 minutes later she was still unresponsive. She was breathing however and had a good pulse. EMS placed her on a cot and got her in the ambulance and within a short period of time she came to and was alert and oriented. There were no reports of seizure-like activity or bowel or bladder incontinence. The patient does not remember calling for her or telling him that she was dizzy. She does not recall having any symptoms of vertigo, visual changes, focal weakness, paresthesias, chest pain, palpitations, shortness of breath, nausea, or vomiting. She had a previous episode of syncope several years ago which she attributed to the heat and she was never worked up for that. She has not had any recent change in medications. She has not had sensations of racing heart or irregular heart rhythm. Blood pressures have been running quite high since admission to the floor, worse in the supine position. When standing however her pulse increased by at least 20 points and her systolic blood pressure decreased by 30 points. With further questioning she does report having neuropathy symptoms in her right leg since having lumbar surgery 9 years ago. That surgery was complicated by infection requiring multiple surgeries and she is on long- term cephalexin for suppression. It is not unusual for that right leg to have tremors which are uncontrollable. She has mild footdrop but is able to ambulate with a walker. She reports that her hands and feet are very cold but that is not a new finding. She has occasional paresthesias over the right trunk which has occurred more recently. She has not had any falls and denies balance issues. No muscle stiffness or rigidity. She denies vision changes, facial droop, and difficulty speaking and swallowing. No emotional lability. She does not have problems controlling her bowel or bladder. In the ED: Vital signs on arrival include a blood pressure 178/65, pulse 85, respiratory 16, SpO2 100% room air, temperature 97.9?.. Labs were significant for a sodium of 131, chloride 97, glucose 145, lactic acid 2.3. Urinalysis was positive for 2+ protein, trace ketones, 1+ bilirubin, 3 to 5 RBC, and greater than 20 casts per high-power field. She tested negative for influenza, RSV, and COVID. Head CT showed moderate nonspecific cerebral white matter disease but no acute findings. Chest CTA was negative for pulmonary embolus. EKG showed a sinus rhythm with no significant ST depressions or elevations. She is being admitted to the floor in this setting for a syncopal workup. Review of Systems Review of Systems: 12 systems were reviewed and are negativ e except for as per HPI. [facility] Past Medical History Medical History Acquired right foot drop Anxiety Chronic back pain Chronic hyponatremia Chronic obstructive pulmonary disease Degenerative joint disease Diverticulitis Essential hypertension Gastroesophageal reflux disease Herpes zoster without complication Hyperlipemia Impaired glucose tolerance Peripheral polyneuropathy Restless leg syndrome Surgical History Surgical History History of arthroplasty of left knee (2009) History of bladder suspension procedure History of cataract extraction with lens replacement History of hysterectomy History of lumbar fusion Family History Family History Mother Family history of osteoporosis Father Acute myocardial infarction, Onset Age: 83 Patient's father is Sibling Family history of lymphoma Family history of malignant neoplasm of male breast Social History Social History Social History: Surrogate medical decision maker: Lucho Braswell, spouse. Code status: Full code. Smoking packs per day: 1 Smoking cigarettes per day: 20.0 Years smoked: 15 Smoking pack-years: 15.00 Smoking status: Former smoker Alcohol intake: never Substance use: never Substance use type: does not use Do You Feel Safe in your Home?: Yes Lack of Transportation: No Lack of Food: Never True Current Housing: I Have Housing Concerned About Future Housing: No Difficulty Paying Gas/Electric Bills: No Difficulty Paying for Meds: No Currently Unemployed: No Education: High School Diploma/GED Difficulty w/ Childcare or Family Care: No Living arrangements: with family Occupation/Education: retired Spiritual care concerns: No Agree to blood products: Yes Meds Home Medications and Allergies Home Medications Medication Instructions Recorded Confirmed Type Bacillus coagulans 10 billion cell 1,000,000 cell PO BID 07/08/19 06/14/24 History capsule,delayed release (Probiotic (B. coagulans)) carboxymethylcellulose 0.5 1 drop ophthalmic (eye) BID PRN 07/08/19 06/14/24 History %-glycerin 0.9 % eye drops Dry Eyes (Refresh Optive) wnxywlaw-vhq-dukqq acid 0.4 1 tablet PO DAILY 07/08/19 06/14/24 History mg-lycopene 300 mcg-lutein 250 mcg tablet (Centrum Silver) umeclidinium 62.5 mcg-vilanterol 1 inhalation inhalation DAILY 07/08/19 06/14/24 History 25 mcg/actuation powdr for inhalation (Anoro Ellipta) meloxicam 15 mg tablet 15 mg PO QAM 01/13/20 06/14/24 History acetaminophen 650 mg 650 mg PO BID 07/26/21 06/14/24 History tablet,extended release (Tylenol 8 Hour) albuterol sulfate 90 mcg/actuation 2 puff inhalation DAILY PRN 05/28/24 06/14/24 History aerosol inhaler (ProAir HFA) Respiratory Distress cephalexin 500 mg capsule 500 mg PO Q12H 05/28/24 06/14/24 History diazepam 2 mg tablet (Valium) 2 mg PO BID PRN muscle spasm #30 05/28/24 06/14/24 Rx tabs omeprazole 20 mg capsule,delayed See Rx Instructions .Route 05/28/24 06/14/24 Rx release .COMPLEX #90 caps lorazepam 1 mg tablet (Ativan) 1 mg PO ONCE PRN agitation #1 06/02/24 06/14/24 Rx tablet fluticasone propionate 50 1 spray intranasal BID PRN sinus 06/14/24 06/14/24 History mcg/actuation nasal allergy spray,suspension (Allergy Relief (fluticasone)) Allergies Allergy/AdvReac Type Severity Reaction Status Date / Time codeine Allergy Intermediate Syncope Verified 06/14/24 11:16 hydrocodone Allergy Unknown syncope Verified 06/14/24 11:16 Vital Signs Vital Signs - 24 hr 06/14/24 11:03 Temperature 97.9 F Pulse Rate 85 Respiratory Rate 16 Blood Pressure 178/65 H Pulse Oximetry 100 Oxygen Delivery Room Air Exam Narrative: General: Well-developed female in the semi-Alejandra position in bed in no acute distress. Weight: 95.5 kg. BMI: 37.3. HEENT: PERRL, EOMI. Sclera anicteric. Oral mucosa moist. Oropharynx clear. Neck: Supple. No carotid bruits. Respiratory: Lungs are clear to auscultation bilaterally. Cardiovascular: Regular rate and rhythm with S1-S2. Gastrointestinal: Abdomen is soft, nontender, and nondistended with positive bowel sounds. Skin: Warm and dry. Extremities: No cyanosis, clubbing, or significant edema. Radial and pedal pulses intact. Neurological: Alert and oriented. Cranial nerves 2-12 are grossly intact. Speech is clear. No facial asymmetry. Hand diamond die maker and foot pushes are equal bilaterally. No pronator drift. No gross focal deficits to casual conversation. Psychiatric: Pleasant and cooperative with normal mood and affect. Judgment and insight intact. H&P: Results Labs Labs: [facility] 06/14/24 11:32 Sodium 131 L Potassium 4.2 Chloride 97 L Carbon Dioxide 26 BUN 15 Creatinine 0.90 Glucose 145 H Calcium 8.9 Liver Function 06/14/24 Range/Units 11:32 Total Bilirubin 0.7 (0.2-1.3) mg/dL AST 27 (14-36) U/L ALT 17 (6-35) U/L Alkaline Phosphatase 63 (38-126) U/L Albumin 4.2 (3.5-5.1) g/dL Urine 06/14/24 Range/Units 12:16 Urine Color Dark yellow (Yellow) Urine Appearance Cloudy H (Clear) Urine pH 6.0 (5.0-9.0) Ur Specific [place] 1.034 (1.001-1.035) Urine Protein 2+ H (Negative) mg/dL Urine Glucose (UA) Negative (Negative) mg/dL Imaging Head CT 06/14/24 13:04 IMPRESSION: 1. Moderate nonspecific cerebral white matter disease, which likely represents chronic small vessel ischemic disease. Chest CTA 06/14/24 13:05 IMPRESSION: 1. No pulmonary embolus. 2. Moderate emphysema. 3. Moderate-sized sliding hiatal hernia. 4. Lucencies around the L2 screws, consistent with loosening. Assessment and Plan Assessment and plan (1) Syncope: Code(s): R55 - Syncope and collapse Status: Acute (2) Elevated lactic acid level: Code(s): R79.89 - Other specified abnormal findings of blood chemistry Status: Acute (3) Chronic hyponatremia: Code(s): E87.1 - Hypo-osmolality and hyponatremia Status: Acute (4) Anxiety: Code(s): F41.9 - Anxiety disorder, unspecified Status: Acute Plan The patient presented to the emergency department for evaluation after a syncopal episode as detailed in HPI. Labs, imaging, EKG, and all reports were personally reviewed. It is unclear what caused the syncopal episode. I suppose it could be due to vasodilation from being in the shower however it sounds as though she did not start having symptoms until her shower was completed. She was unresponsive for upwards of 30 minutes which is unusual. She reportedly had a good pulse and normal blood pressures on EMS arrival. Her blood pressure on arrival to the ED was 178/65 and she has had supine hypertension since admission to the floor. Her orthostatic blood pressures however were positive for a 15 point increase in pulse and a nearly 30 point decrease in systolic blood pressure when going from a seated to standing position however she was asymptomatic with that. I have asked that the patient remain more in a seated position and repeat blood pressures have been consistently in the upper 190s to low 200s over high 90s. Hydralazine x1 ordered this evening. Blood pressures and orthostatic vital signs will be monitored closely. She will be monitored on telemetry overnight to rule out cardiac dysrhythmia. Echocardiogram and carotid Doppler ultrasounds have been ordered. Neurology has been consulted given her other neurologic symptom as she may have some dysautonomia though no other symptoms to suggest such. Lactic acid level was very mildly elevated and may be related to transient hypotension with the syncopal episode or may be related to lab draw technique. Sodium and chloride are both a little low but this seems to be chronic for her however she does have trace ketones in her urine and she will receive a liter of normal saline. Her home medications will be reviewed and resumed as appropriate. Findings and treatment plan were discussed with the patient. Questions were solicited and answered to satisfaction. The patient's medical management will be taken over by the hospitalist team in a.m. Quality VTE Prophylaxis VTE prophylaxis: pharmacologic ordered The patient has been admitted under observation status. Hospitalist [facility] Advance Care Plan I have confirmed that the patient's Advanced Care Plan is present, code status is documented, or surrogate decision maker is listed in patient medical record.: Yes Medication Reconciliation I have utilized all available resources to obtain, update and review the pat ients current medications (includes all prescriptions, OTC, herbals, cannabis, and nutritional supplements).: Yes
--- NOTE | 2024-06-14 14:40 | ADMGEN ---
This patient, Sandra Braswell, was admitted to Medical Room 248-. Patient/family oriented to hospital policies and general routines including ID bracelet, bed and alarms, visiting hours, pain management, procedures, bathroom and other care routines, personal items, smoking policy, room service/diet, and visiting hours. Information on how to activate the Rapid Response Team has been discussed. Patient/Family are encouraged to report perceived risks to care and to ask questions if they do not understand what they are told or what they should do.
[2024-06-14 14:44] LABS: Reflex Lactic Acid Yes or No Add Lactic
[2024-06-14] MEDS: SODIUM CHLORIDE 0.9% IV 1,000 ML 999 ML IV CONT (15:40)
[2024-06-14 16:01] LABS: Lactic Acid 1.5 mmol/L (0.7-2.0)
[2024-06-14 16:43] LABS: Hematocrit 42.4 % (37.0-47.0); Hemoglobin 14.2 g/dL (12.0-15.0); Mean Corpuscular HGB Conc 33.5 g/dl (32-36); Mean Corpuscular Hemoglobin 31.2 pg (26-34); Mean Corpuscular Volume 93.2 fl (80-100); Mean Platelet Volume 9.6 fl (7.4-10.4); Platelet Count Result 193 k/mm3 (150-375); Red Blood Count 4.55 M/mm3 (4.2-5.4); Red Cell Distribution Width 14.3 % (11.5-14.5); White Blood Count 6.8 K/mm3 (4.5-10.0)
[2024-06-14 16:53] LABS: Anion Gap 10 mmol/L (4-12); Blood Urea Nitrogen 15 mg/dL (7-17); Calcium 9.2 mg/dL (8.4-10.2); Carbon Dioxide 21 mmol/L (22-30); Chloride 100 mmol/L (98-107); Estimated CRCL calculation 50 ml/min; Estimated Glomerular Filt Rate > 60; Glucose 165 mg/dL (65-110); Potassium 4.3 mmol/L (3.4-5.0); Sodium 131 mmol/L (137-145)
[2024-06-14] MEDS: ACIDOPHILUS/BULGARICUS CHEWABLE TABLET 1 TABLET BY MOUTH (17:27)
[2024-06-14] MEDS: CEPHALEXIN 500 MG CAPSULE PO (20:26)
[2024-06-14] MEDS: hydrALAZINE HCL 20 MG/ML VIAL 10 MG IV PUSH (23:50)
[2024-06-15] VITALS (16 sets, daily range): BP systolic 137–180; BP diastolic 67–94; PULSE 79–105; RESP 12–20; TEMP 36.4–36.8; O2SAT 97–100
--- NOTE | 2024-06-15 00:27 | ECG_ITS ---
Test Date: 2024-06-15 00:29:31 Measurements Intervals [place] Rate: 98 P: 65 CT: 156 QRS: 1 QRSD: 91 T: 28 QT: 339 QTc: 434 Interpretive Statements SINUS RHYTHM WITH OCCASIONAL SUPRAVENTRICULAR PREMATURE COMPLEXES CONSIDER INFERIOR INFARCT, AGE INDETERMINATE BORDERLINE ST ABNORMALITY- ANTEROLATERAL LEADS ABNORMAL ECG Compared to ECG 06/14/2024 11:11:16 No significant changes Electronically Signed On 06-15-2024 07:08:29 UNIX ADMINISTRATOR by Angus Taylor D.O.
[2024-06-15 05:56] LABS: Anion Gap 6 mmol/L (4-12); Blood Urea Nitrogen 11 mg/dL (7-17); Calcium 9.3 mg/dL (8.4-10.2); Carbon Dioxide 27 mmol/L (22-30); Chloride 103 mmol/L (98-107); Estimated CRCL calculation 54 ml/min; Estimated Glomerular Filt Rate > 60; Glucose 100 mg/dL (65-110); Magnesium 2.3 mg/dL (1.6-2.3); Potassium 3.9 mmol/L (3.4-5.0); Sodium 136 mmol/L (137-145)
[2024-06-15] MEDS: UMECLIDINIUM/VILANTEROL 62.5-25 MCG ELLIPTA 1 PUFF INHALATION (07:06)
--- NOTE | 2024-06-15 08:28 | P.PNIM_ITS ---
Progress Note: A&P Assessment and Plan (1) Syncope: Code(s): R55 - Syncope and collapse Status: Acute Assessment and Plan: * Head CT shown moderate nonspecific cerebral white matter disease representing chronic small vessel ischemic disease. * Chest CTA was negative for PE, shown moderate emphysema, moderate-sized sliding hiatal hernia * Carotid doppler study was negative for any significant stenosis of the b ilateral internal carotid arteries * Plan for echocardiogram today * MRI of the brain and brain stem shown moderate chronic microvascular ischemic changes and mild generalized atrophy. * Orthostatic blood pressures obtained and did not show a drop, in fact increased blood pressures were noted with position changes * Continue cardiac monitoring * Neurology consulted (2) Essential hypertension: Code(s): I10 - Essential (primary) hypertension Status: Acute Assessment and Plan: New onset * MRI of brain and brain stem showing moderate chronic microvascular ischemic changes * Blood pressure ranging 149/67-200/100 * She denies any home medications * Will start Losartan 25 mg daily starting now and reassess in the morning (3) Elevated lactic acid level: Code(s): R79.89 - Other specified abnormal findings of blood chemistry Status: Acute Assessment and Plan: * Initial lactate 2.3 now down to 1.5 after given 1L NS bolus in the ER. (4) Chronic hyponatremia: Code(s): E87.1 - Hypo-osmolality and hyponatremia Status: Acute Assessment and Plan: * appears chronic * Initial Na+ 131, now up to 136 * continue to trend (5) Anxiety: Code(s): F41.9 - Anxiety disorder, unspecified Status: Acute Assessment and Plan: * Continue Valium and Ativan Time Spent With Patient Time with patient: Greater than 35 minutes Subjective Date/time seen: 06/15/24 08:28 Interval history: Interval history: This is an 83 year old female who presented to the hospital on 06/14/24 after experiencing a syncopal episode with unresponsiveness for approximately 30 minutes after taking a shower. She was brought in by EMS. She was found to have high blood pressure readings on arrival to the ER. Workup in the hospital included orthostatic blood pressures which did not show a drop in blood pressure or heart rate. Head CT shown moderate nonspecific cerebral white matter disease representing chronic small vessel ischemic disease. Chest CTA was negative for PE, moderate emphysema, moderate sized sliding hiatal hernia. Labs revealed a Na+ 131, bicarb 21, chloride 97, Lactic acid 2.3>1.5. UA shown cloudy appearance, 2+ protein, trace ketones, 1+ urine bilirubin, 3-5 urine RBCs, >20 casts. Patient was given 1L NS while in the ER. Neurology consulted. Subjective: Patient reports that she started feeling off after getting out of the shower. She denied any dizziness, lightheadedness, or vision changes. She reported that she felt like she had to sit down. When she did she passed out into her husbands arms. She states that she has had episodes of passing out in the past and reports that after these episodes she takes a nap and wakes up 45 minutes later feeling better. She was told that she always had low blood pressure and is not on anything at home for blood pressure. Currently blood pressure readings are high. Patient denies any fever, chills, nausea, vomiting, diarrhea, abdominal pain, chest pain, shortness of breath, lightheadedness, dizziness, vision changes, headache. Labs and imaging reviewed. Review of Systems Review of Systems: 12 systems were reviewed and are negativ e except for as per HPI. All systems reviewed & are unremarkable except as noted in HPI and below Constitutional: Constitutional: Reports as per HPI and Reports no additional constitutional complaints Eyes: Eyes: Reports as per HPI and Reports no additional eye complaints ENT: Reports system reviewed and no additional complaints, except as documented and Reports as per HPI Cardiovascular: Cardiovascular: Reports as per HPI and Reports no additional cardiovascular complaints Respiratory: Respiratory: Reports as per HPI and Reports no additional respiratory complaints Gastrointestinal: Gastrointestinal: Reports as per HPI and Reports no additional gastrointestinal complaints Genitourinary: Genitourinary: Reports no additional female genitourinary complaints and Reports as per HPI Musculoskeletal: Musculoskeletal: Reports no additional musculoskeletal complaints and Reports as per HPI Integumentary/Breasts: Skin/Breast: Reports system reviewed and no additional complaints, except as docu and Reports as per HPI Neurologic: Reports system reviewed and no additional complaints, except as documented and Reports as per HPI Psychiatric: Psychiatric: Reports no additional psychiatric complaints and Reports as per HPI Exam Narrative: General: In no acute distress, well nourished Head: atraumatic, no encephalopathy Eyes: EOMI, PERRLA, sclera clear ENT: moist mucous membranes, nasal passages clear Neck: supple, no JVD, no adenopathy, trachea midline Cardiac: Normal S1 and S2. No murmur, gallops or friction rubs, peripheral pulses intact. Respiratory: Lungs clear to auscultation, no adventitious lung sounds, currently on room air Gastrointestinal: soft, non-distended, non-tender, normoactive bowel sounds. : voiding without difficulty. Extremities: moves all extremities well, no edema, good ROM, strength 5/5 Skin: clean, dry, intact. No wounds or lesions. Neuro: Alert and oriented x4, cranial nerves intact, no neuro deficits. No facial droop or slurred speech Psych: normal mood, normal affect, interactive Objective Data Vital Signs Vital Signs: Vital Signs - 24 hr 06/14/24 11:03 06/14/24 11:16 06/14/24 11:31 Temperature 97.9 F Pulse Rate 85 80 77 Respiratory Rate 16 19 15 Blood Pressure 178/65 H 166/71 H 144/55 H Pulse Oximetry 100 99 100 Oxygen Delivery Room Air 06/14/24 11:46 06/14/24 12:01 06/14/24 12:33 Temperature Pulse Rate 73 71 83 Respiratory Rate 18 15 16 Blood Pressure 151/61 H 148/56 H Pulse Oximetry 100 98 99 Oxygen Delivery 06/14/24 12:45 06/14/24 13:30 06/14/24 14:00 Temperature Pulse Rate 76 78 80 Respiratory Rate 16 17 16 Blood Pressure 150/64 H 154/62 H 180/70 H Pulse Oximetry 99 100 97 Oxygen Delivery 06/14/24 20:00 06/14/24 20:00 06/14/24 21:15 Temperature 97.6 F Pulse Rate 80 70 Respiratory Rate 16 Blood Pressure 196/78 H Pulse Oximetry 97 Oxygen Delivery Room Air 06/14/24 21:15 06/14/24 21:20 06/14/24 21:30 Temperature Pulse Rate 70 79 94 Respiratory Rate Blood Pressure 196/78 H 200/100 H 169/90 H Pulse Oximetry Oxygen Delivery 06/14/24 23:19 06/14/24 22:15 06/15/24 00:14 Temperature Pulse Rate Respiratory Rate Blood Pressure 198/96 H 202/98 H 180/92 H Pulse Oximetry Oxygen Delivery 06/15/24 00:45 06/15/24 00:00 06/15/24 04:00 Temperature Pulse Rate 98 94 Respiratory Rate Blood Pressure 162/68 H Pulse Oximetry Oxygen Delivery 06/15/24 05:44 06/15/24 07:05 06/15/24 07:05 Temperature 97.6 F Pulse Rate 81 79 79 Respiratory Rate 16 18 18 Blood Pressure 176/79 H Pulse Oximetry 98 97 Oxygen Delivery Room Air Intake/Output Intake/Output: Intake & Output 06/12/24 06/13/24 06/14/24 06/15/24 23:59 23:59 23:59 23:59 Intake Total 480 150 Output Total 50 Balance 430 150 Meds/Results Medications: Active Medications Generic Name Dose Route Start Last Admin Trade Name Freq PRN Reason Stop Dose Admin Acetaminophen 650 mg 06/14/24 15:07 Acetaminophen 325 Mg Tablet PO Q6H PRN Mild Pain (1-3) or Fever Albuterol 2 puff 06/14/24 15:33 Albuterol Sulfate (*Sp) Aerosol 1 Puff INHALATION Q6H PRN Respiratory Distress Artificial Tears 1 drop 06/14/24 16:08 Artificial Tears Ophth Soln 15 Ml Bottle EACH EYE BID PRN Dry Eye(s) Cephalexin HCl 500 mg 06/14/24 21:00 06/14/24 20:26 Cephalexin 500 Mg Capsule PO 500 mg Q12HR RAVINDRA Administration Enoxaparin Sodium 40 mg 06/15/24 09:00 Enoxaparin 40 Mg/0.4 Ml Syringe SUB-Q DAILY [facility] Fluticasone Propionate 1 spray 06/14/24 15:33 Fluticasone Propionate 0.05% Na Spr 16 Gm Btl (*Bkc) NASAL BID PRN sinus allergy Lactobacillus Acidophilus 1 tablet 06/14/24 17:00 06/14/24 17:27 Acidophilus/Bulgaricus Chewable Tablet BY MOUTH 1 tablet BID RAVINDRA Administration Meloxicam 15 mg 06/15/24 09:00 Meloxicam 7.5 Mg Tablet PO QAM RAVINDRA Multivitamins/Minerals 1 tab 06/15/24 09:00 Multivitamins /C Lutein (Centrum Silver) Tablet *Bkc PO DAILY RAVINDRA Perflutren Lipid Microsphere 0 ml 06/14/24 15:04 Perflutren Lipid Microspheres 1.5 Ml Vial Diluted To 10 Ml Total Volume IV PUSH 06/17/24 15:04 ONCE PRN adequate visualization Protocol Umeclidinium/Vilanterol 1 puff 06/15/24 08:00 06/15/24 07:06 Umeclidinium/Vilanterol 62.5-25 Mcg Ellipta INHALATION 1 puff DAILYRT RAVINDRA Administration Radiology Results: ITS Impressions Head CT 06/14/24 13:04 IMPRESSION: 1. Moderate nonspecific cerebral white matter disease, which likely represents chronic small vessel ischemic disease. Chest CTA 06/14/24 13:05 IMPRESSION: 1. No pulmonary embolus. 2. Moderate emphysema. 3. Moderate-sized sliding hiatal hernia. 4. Lucencies around the L2 screws, consistent with loosening. Labs Labs: Laboratory Results - last 24 hr 06/14/24 06/14/24 06/14/24 11:32 12:16 15:38 WBC 6.8 RBC 4.55 Hgb 14.2 Hct 42.4 MCV 93.2 MCH 31.2 MCHC 33.5 RDW 14.3 Plt Count 193 MPV 9.6 PT 13.2 INR 1.0 APTT 29.0 Sodium 131 L 131 L Potassium 4.2 4.3 Chloride 97 L 100 Carbon Dioxide 26 21 L Anion Gap 8 10 BUN 15 15 Creatinine 0.90 0.80 Estim Creat Clear Calc 45 50 Estimated GFR 60 > 60 Glucose 145 H 165 H Lactic Acid 2.3 H Calcium 8.9 9.2 Magnesium 2.3 Total Bilirubin 0.7 AST 27 ALT 17 Alkaline Phosphatase 63 Total Protein 7.0 Albumin 4.2 Urine Color Dark yellow Urine Appearance Cloudy H Urine pH 6.0 Ur Specific [place] 1.034 Urine Protein 2+ H Urine Glucose (UA) Negative Urine Ketones Trace H Ur Blood (Man) Negative Urine Nitrate Negative Urine Bilirubin 1+ H Urine Urobilinogen 1.0 Add Ur Microanalysis Reviewed Leukocyte Esterase Rfl Negative Urine RBC 3-5 H Urine WBC 0-5 Ur Squamous Epith Cells Occasional Urine Bacteria None seen Urine Casts >20 Influenza A (RT-PCR) Negative Influenza B (RT-PCR) Negative RSV (RT-PCR) Negative SARS-CoV-2 RNA (RT-PCR) Negative 06/14/24 06/15/24 15:41 05:39 WBC RBC Hgb Hct MCV MCH MCHC RDW Plt Count MPV PT INR APTT Sodium 136 L Potassium 3.9 Chloride 103 Carbon Dioxide 27 Anion Gap 6 BUN 11 Creatinine 0.70 Estim Creat Clear Calc 54 Estimated GFR > 60 Glucose 100 Lactic Acid 1.5 Calcium 9.3 Magnesium 2.3 Total Bilirubin AST ALT Alkaline Phosphatase Total Protein Albumin Urine Color Urine Appearance Urine pH Ur Specific [place] Urine Protein Urine Glucose (UA) Urine Ketones Ur Blood (Man) Urine Nitrate Urine Bilirubin Urine Urobilinogen Add Ur Microanalysis Leukocyte Esterase Rfl Urine RBC Urine WBC Ur Squamous Epith Cells Urine Bacteria Urine Casts Influenza A (RT-PCR) Influenza B (RT-PCR) RSV (RT-PCR) SARS-CoV-2 RNA (RT-PCR) Quality VTE Prophylaxis VTE prophylaxis: pharmacologic ordered
[2024-06-15] MEDS: ACIDOPHILUS/BULGARICUS CHEWABLE TABLET 1 TABLET BY MOUTH ×2 (09:19→16:12)
[2024-06-15] MEDS: CEPHALEXIN 500 MG CAPSULE PO ×2 (09:19→21:25)
[2024-06-15] MEDS: ENOXAPARIN 40 MG/0.4 ML SYRINGE SUB-Q (09:19)
[2024-06-15] MEDS: MULTIVITAMINS /C LUTEIN (CENTRUM SILVER) TABLET *BKC 1 TAB PO (09:19)
[2024-06-15] MEDS: MELOXICAM 7.5 MG TABLET 15 MG PO (09:19)
[2024-06-15 15:22] LABS: Cholesterol 244 mg/dL (0-200); HDL Direct 89 mg/dL; Triglycerides 117 mg/dL (<150)
[2024-06-15 15:33] LABS: LDL Cholesterol Direct 118 mg/dL
--- NOTE | 2024-06-15 16:03 | P.CONNEU_ITS ---
Assessment and Plan Assessment and plan (1) Episode of syncope: Code(s): R55 - Syncope and collapse Status: Acute (2) Essential hypertension: Code(s): I10 - Essential (primary) hypertension Status: Acute (3) Acquired right foot drop: Code(s): M21.371 - Foot drop, right foot Status: Acute (4) H/O lumbosacral spine surgery: Code(s): Z98.890 - Other specified postprocedural states Status: Acute Plan The concern is the prolonged spell of unresponsiveness for 30 minutes. There does not appear to be any thing to suggest a seizure like spell however this certainly could be in the differential diagnosis. Brainstem transient ischemic attack could also be a consideration. Her MRI of the brain did not show any acute abnormalities however chronic ischemic changes were seen cerebral hemispheres as well as in brainstem area. I would suggest an EEG and a CT angiogram of the head and neck to further investigate for a areas of the circulation cannot which cannot be seen on the carotid Doppler study in view of the finding in the brainstem area. She should have a prolonged cardiac monitoring and echocardiogram. A lipid profile Shows LDL was 118 aspirin 81 mg a day and 2 Lipitor 40 mg a day in view of the diffuse chronic cerebrovascular disease and hypertension given age and stage of life. Consult date: 06/15/24 HPI: Sandra Braswell is a 83 year old female With history of loss of consciousness at home with test by her . She just finished her shower which she started to feel dizzy and she called her and went to sit on the commode. She was trying to herself with a towel but she went ahead and passed out her caught her in his arm. According to her she was out for nearly 30 minutes. There was no tongue biting or incontinence of urine or any seizure- like activity. She maintain her normal color. Her 911 and the ambulance and cough the right within 9 minutes. The cough checked her pulse and the ambulance check her blood pressure and these were certain not low and if anything blood pressure was found to be high. She has never had any spell like this recently but she did have a passing out spell long time ago but they did not even go to the hospital at that time. She did not complain of any chest pain or headache before or after the spell. After admission to the hospital she did not have any other symptoms. She woke up in the ambulance and did not have any loss of strength in the upper lower limbs or loss of speech or confusional state or combativeness. Today she is feeling back to her normal self and does not have any symptoms. No history of diabetes mellitus. A CT scan of brain shows white matter changes. MRI of the brain was also performed which shows similar findings. Carotid Doppler study also did not show any significant abnormalities. She has a history of lower back surgery about 2 7 years ago following that she has not been able to walk and has been using a walker. She developed right footdrop and she also has tendency to move her legs or have restless leg syndrome. This of course the long-term problem. Review of Systems Review of Systems: All systems reviewed & are unremarkable except as noted in HPI and below PMFSH Past Medical History Medical History Acquired right foot drop Anxiety Chronic back pain Chronic hyponatremia Chronic obstructive pulmonary disease Degenerative joint disease Diverticulitis Essential hypertension Gastroesophageal reflux disease Herpes zoster without complication Hyperlipemia Impaired glucose tolerance Peripheral polyneuropathy Restless leg syndrome Surgical History Surgical History (Updated 06/15/24 @ 16:08 by Michele Myrick MD) H/O lumbosacral spine surgery History of arthroplasty of left knee (2009) History of bladder suspension procedure History of cataract extraction with lens replacement History of hysterectomy History of lumbar fusion Family History Family History Mother Family history of osteoporosis Father Acute myocardial infarction, Onset Age: 83 Patient's father is Sibling Family history of lymphoma Family history of malignant neoplasm of male breast Social History Social History Social History: Surrogate medical decision maker: Lucho French, spouse. Code status: Full code. Smoking packs per day: 1 Smoking cigarettes per day: 20.0 Years smoked: 15 Smoking pack-years: 15.00 Smoking status: Former smoker Alcohol intake: never Substance use: never Substance use type: does not use Do You Feel Safe in your Home?: Yes Lack of Transportation: No Lack of Food: Never True Current Housing: I Have Housing Concerned About Future Housing: No Difficulty Paying Gas/Electric Bills: No Difficulty Paying for Meds: No Currently Unemployed: No Education: High School Diploma/GED Difficulty w/ Childcare or Family Care: No Living arrangements: with family Occupation/Education: retired Spiritual care concerns: No Agree to blood products: Yes Meds Home Medications and Allergies Home Medications Medication Instructions Recorded Confirmed Type Bacillus coagulans 10 billion cell 1,000,000 cell PO BID 07/08/19 06/14/24 History capsule,delayed release (Probiotic (B. coagulans)) carboxymethylcellulose 0.5 1 drop ophthalmic (eye) BID PRN 07/08/19 06/14/24 History %-glycerin 0.9 % eye drops Dry Eyes (Refresh Optive) [id number] acid 0.4 1 tablet PO DAILY 07/08/19 06/14/24 History mg-lycopene 300 mcg-lutein 250 mcg tablet (Centrum Silver) umeclidinium 62.5 mcg-vilanterol 1 inhalation inhalation DAILY 07/08/19 06/14/24 History 25 mcg/actuation powdr for inhalation (Anoro Ellipta) meloxicam 15 mg tablet 15 mg PO QAM 01/13/20 06/14/24 History acetaminophen 650 mg 650 mg PO BID 07/26/21 06/14/24 History tablet,extended release (Tylenol 8 Hour) albuterol sulfate 90 mcg/actuation 2 puff inhalation DAILY PRN 05/28/24 06/14/24 History aerosol inhaler (ProAir HFA) Respiratory Distress cephalexin 500 mg capsule 500 mg PO Q12H 05/28/24 06/14/24 History diazepam 2 mg tablet (Valium) 2 mg PO BID PRN muscle spasm #30 05/28/24 06/14/24 Rx tabs omeprazole 20 mg capsule,delayed See Rx Instructions .Route 05/28/24 06/14/24 Rx release .COMPLEX #90 caps lorazepam 1 mg tablet (Ativan) 1 mg PO ONCE PRN agitation #1 06/02/24 06/14/24 Rx tablet fluticasone propionate 50 1 spray intranasal BID PRN sinus 06/14/24 06/14/24 History mcg/actuation nasal allergy spray,suspension (Allergy Relief (fluticasone)) Allergies Allergy/AdvReac Type Severity Reaction Status Date / Time codeine Allergy Intermediate Syncope Verified 06/14/24 11:16 hydrocodone Allergy Unknown syncope Verified 06/14/24 11:16 Vital Signs Vital Signs - 24 hr 06/14/24 20:00 06/14/24 20:00 06/14/24 21:15 Temperature 97.6 F Pulse Rate 80 70 Respiratory Rate 16 Blood Pressure 196/78 H Pulse Oximetry 97 Oxygen Delivery Room Air 06/14/24 21:15 06/14/24 21:20 06/14/24 21:30 Temperature Pulse Rate 70 79 94 Respiratory Rate Blood Pressure 196/78 H 200/100 H 169/90 H Pulse Oximetry Oxygen Delivery 06/14/24 23:19 06/14/24 22:15 06/15/24 00:14 Temperature Pulse Rate Respiratory Rate Blood Pressure 198/96 H 202/98 H 180/92 H Pulse Oximetry Oxygen Delivery 06/15/24 00:45 06/15/24 00:00 06/15/24 04:00 Temperature Pulse Rate 98 94 Respiratory Rate Blood Pressure 162/68 H Pulse Oximetry Oxygen Delivery 06/15/24 05:44 06/15/24 07:05 06/15/24 07:05 Temperature 97.6 F Pulse Rate 81 79 79 Respiratory Rate 16 18 18 Blood Pressure 176/79 H Pulse Oximetry 98 97 Oxygen Delivery Room Air 06/15/24 10:11 06/15/24 10:11 06/15/24 10:15 Temperature 97.9 F 97.9 F 97.8 F Pulse Rate 85 85 85 Respiratory Rate 16 16 12 Blood Pressure 146/68 H 146/68 H 170/78 H Pulse Oximetry 98 98 97 Oxygen Delivery 06/15/24 10:18 06/15/24 09:20 06/15/24 14:26 Temperature 97.5 F L 97.7 F Pulse Rate 103 H 81 82 Respiratory Rate 16 16 Blood Pressure 171/93 H 149/67 H Pulse Oximetry 100 99 Oxygen Delivery Exam Const: General: cooperative, well developed and alert Orientation/consciousness: patient oriented x3 HENMT: Head: atraumatic Other: Mallampati score was 2 to 3/4 Eyes: Alignment and Position: position normal Pupils: Equal, round and reactive pupils present EOM: EOMs intact bilaterally Neck: Neck: supple Resp: Effort & Inspection: normal respiratory effort Cardio: Rate: regular rate Rhythm: regular rhythm Neuro: General: patient oriented x3 Cranial nerves: Yes CN's II-XII intact bilaterally, Yes facial sensation intact/muscles of mastication intact, Yes Equal, round and reactive pupils present, Yes facial symmetry and Yes Midline tongue present Cognition (Neuro): normal cognition Speech: normal speech Gait exam (Neuro): Normal gait present Motor exam (neuro): 5/5 motor stren gth present throughout ( Except for right footdrop) Sensory Exam: normal sensation Coordination: [id number] test normal and Normal rapid alte rnating movements of the distal upper extremity present (Neuro) Other: right ankle was absent other reflexes were 2/4 including the biceps triceps supinator knee and left ankle reflex were present Psych: Mental Status: mental status grossly normal Affect: normal affect Results Labs 06/14/24 15:38 06/15/24 05:39 Labs: Short CBC 06/14/24 Range/Units 15:38 WBC 6.8 (4.5-10.0) K/mm3 Hgb 14.2 (12.0-15.0) g/dL Hct 42.4 (37.0-47.0) % Plt Count 193 (150-375) k/mm3 [facility] 06/14/24 06/15/24 15:38 05:39 Sodium 131 L 136 L Potassium 4.3 3.9 Chloride 100 103 Carbon Dioxide 21 L 27 BUN 15 11 Creatinine 0.80 0.70 Glucose 165 H 100 Calcium 9.2 9.3
[2024-06-15] MEDS: LOSARTAN POTASSIUM 25 MG TABLET PO (16:12)
[2024-06-15] MEDS: FLUTICASONE PROPIONATE 0.05% NA SPR 16 GM BTL (*BKC) 1 SPRAY NASAL (21:25)
[2024-06-16] VITALS (10 sets, daily range): BP systolic 101–173; BP diastolic 38–88; PULSE 68–95; RESP 18–20; TEMP 36.6–37; O2SAT 96–100
--- NOTE | 2024-06-16 08:22 | P.PNIM_ITS ---
Progress Note: A&P Assessment and Plan (1) Syncope: Code(s): R55 - Syncope and collapse Status: Acute Assessment and Plan: * Head CT shown moderate nonspecific cerebral white matter disease representing chronic small vessel ischemic disease. * Chest CTA was negative for PE, shown moderate emphysema, moderate-sized sliding hiatal hernia * Carotid doppler study was negative for any significant stenosis of the b ilateral internal carotid arteries * Awaiting EEG and Echo results * MRI of the brain and brain stem shown moderate chronic microvascular ischemic changes and mild generalized atrophy. * Orthostatic blood pressures obtained and did not show a drop, in fact increased blood pressures were noted with position changes * Continue cardiac monitoring * Neurology consulted and recommending cardiology consult for holter monitoring outpatient. * Cardiology consulted (2) Essential hypertension: Code(s): I10 - Essential (primary) hypertension Status: Acute Assessment and Plan: New onset * MRI of brain and brain stem showing moderate chronic microvascular ischemic changes * Blood pressure ranging 137/85-161/72 * She denies any home medications * Will increase Losartan to 25 mg BID (3) Elevated lactic acid level: Code(s): R79.89 - Other specified abnormal findings of blood chemistry Status: Acute Assessment and Plan: * Initial lactate 2.3 now down to 1.5 after given 1L NS bolus in the ER. * Resolved (4) Chronic hyponatremia: Code(s): E87.1 - Hypo-osmolality and hyponatremia Status: Acute Assessment and Plan: * appears chronic * Na+ 134 * continue to trend (5) Anxiety: Code(s): F41.9 - Anxiety disorder, unspecified Status: Acute Assessment and Plan: * Continue Valium and Ativan Time Spent With Patient Time with patient: Greater than 35 minutes Subjective Date/time seen: 06/16/24 08:22 Interval history: Interval history: This is an 83 year old female who presented to the hospital on 06/14/24 after experiencing a syncopal episode with unresponsiveness for approximately 30 minutes after taking a shower. She was brought in by EMS. She was found to have high blood pressure readings on arrival to the ER. Workup in the hospital included orthostatic blood pressures which did not show a drop in blood pressure or heart rate. Head CT shown moderate nonspecific cerebral white matter disease representing chronic small vessel ischemic disease. Chest CTA was negative for PE, moderate emphysema, moderate sized sliding hiatal hernia. Labs revealed a Na+ 131, bicarb 21, chloride 97, Lactic acid 2.3>1.5. UA shown cloudy appearance, 2+ protein, trace ketones, 1+ urine bilirubin, 3-5 urine RBCs, >20 casts. Patient was given 1L NS while in the ER. Neurology consulted. Subjective: Patient denies any new complaints today. Labs and imaging reviewed. Awaiting Echo and EEG results. Review of Systems Review of Systems: 12 systems were reviewed and are negativ e except for as per HPI. All systems reviewed & are unremarkable except as noted in HPI and below Constitutional: Constitutional: Reports as per HPI and Reports no additional constitutional complaints Eyes: Eyes: Reports as per HPI and Reports no additional eye complaints ENT: Reports system reviewed and no additional complaints, except as documented and Reports as per HPI Cardiovascular: Cardiovascular: Reports as per HPI and Reports no additional cardiovascular complaints Respiratory: Respiratory: Reports as per HPI and Reports no additional respiratory complaints Gastrointestinal: Gastrointestinal: Reports as per HPI and Reports no additional gastrointestinal complaints Genitourinary: Genitourinary: Reports no additional female genitourinary complaints and Reports as per HPI Musculoskeletal: Musculoskeletal: Reports no additional musculoskeletal complaints and Reports as per HPI Integumentary/Breasts: Skin/Breast: Reports system reviewed and no additional complaints, except as docu and Reports as per HPI Neurologic: Reports system reviewed and no additional complaints, except as documented and Reports as per HPI Psychiatric: Psychiatric: Reports no additional psychiatric complaints and Reports as per HPI Exam Narrative: General: In no acute distress, well nourished Cardiac: Normal S1 and S2. No murmur, gallops or friction rubs, peripheral pulses intact. Respiratory: Lungs clear to auscultation, no adventitious lung sounds, currently on room air Neuro: Alert and oriented x4, cranial nerves intact, no neuro deficits. No facial droop or slurred speech Objective Data Vital Signs Vital Signs: Vital Signs - 24 hr 06/15/24 10:11 06/15/24 10:11 06/15/24 10:15 Temperature 97.9 F 97.9 F 97.8 F Pulse Rate 85 85 85 Respiratory Rate 16 16 12 Blood Pressure 146/68 H 146/68 H 170/78 H Pulse Oximetry 98 98 97 Oxygen Delivery 06/15/24 10:18 06/15/24 09:20 06/15/24 14:26 Temperature 97.5 F L 97.7 F Pulse Rate 103 H 81 82 Respiratory Rate 16 16 Blood Pressure 171/93 H 149/67 H Pulse Oximetry 100 99 Oxygen Delivery 06/15/24 16:00 06/15/24 17:34 06/15/24 20:00 Temperature Pulse Rate 82 82 Respiratory Rate 16 Blood Pressure 168/94 H Pulse Oximetry 99 Oxygen Delivery Room Air 06/15/24 20:00 06/15/24 20:00 06/15/24 20:00 Temperature 98.3 F Pulse Rate 82 83 83 Respiratory Rate 20 Blood Pressure 180/67 H 180/67 H Pulse Oximetry 99 Oxygen Delivery 06/15/24 20:05 06/15/24 20:10 06/16/24 00:00 Temperature 97.9 F Pulse Rate 90 105 H 76 Respiratory Rate 18 Blood Pressure 180/83 H 137/85 151/68 H Pulse Oximetry 97 Oxygen Delivery 06/16/24 00:00 06/16/24 04:00 06/16/24 04:00 Temperature 97.9 F Pulse Rate 95 73 77 Respiratory Rate 18 Blood Pressure 161/72 H Pulse Oximetry 96 Oxygen Delivery 06/16/24 08:13 Temperature Pulse Rate Respiratory Rate Blood Pressure Pulse Oximetry 97 Oxygen Delivery Room Air Intake/Output Intake/Output: Intake & Output 06/13/24 06/14/24 06/15/24 06/16/24 23:59 23:59 23:59 23:59 Intake Total 480 900 480 Output Total 50 Balance 430 900 480 Meds/Results Medications: Active Medications Generic Name Dose Route Start Last Admin Trade Name Freq PRN Reason Stop Dose Admin Acetaminophen 650 mg 06/14/24 15:07 Acetaminophen 325 Mg Tablet PO Q6H PRN Mild Pain (1-3) or Fever Albuterol 2 puff 06/14/24 15:33 Albuterol Sulfate (*Sp) Aerosol 1 Puff INHALATION Q6H PRN Respiratory Distress Artificial Tears 1 drop 06/14/24 16:08 Artificial Tears Ophth Soln 15 Ml Bottle EACH EYE BID PRN Dry Eye(s) Aspirin 81 mg 06/16/24 09:00 Aspirin 81 Mg Enteric Tablet PO QAM [facility] Atorvastatin Calcium 40 mg 06/16/24 09:00 Atorvastatin 40 Mg Tablet PO DAILY RAVINDRA Cephalexin HCl 500 mg 06/14/24 21:00 06/15/24 21:25 Cephalexin 500 Mg Capsule PO 500 mg Q12HR RAVINDRA Administration Enoxaparin Sodium 40 mg 06/15/24 09:00 06/15/24 09:19 Enoxaparin 40 Mg/0.4 Ml Syringe SUB-Q 40 mg DAILY RAVINDRA Administration Fluticasone Propionate 1 spray 06/14/24 15:33 06/15/24 21:25 Fluticasone Propionate 0.05% Na Spr 16 Gm Btl (*Bkc) NASAL 1 spray BID PRN Administration sinus allergy Lactobacillus Acidophilus 1 tablet 06/14/24 17:00 06/15/24 16:12 Acidophilus/Bulgaricus Chewable Tablet BY MOUTH 1 tablet BID RAVINDRA Administration Losartan Potassium 25 mg 06/15/24 14:45 06/15/24 16:12 Losartan Potassium 25 Mg Tablet PO 25 mg DAILY RAVINDRA Administration Meloxicam 15 mg 06/15/24 09:00 06/15/24 09:19 Meloxicam 7.5 Mg Tablet PO 15 mg QAM RAVINDRA Administration Multivitamins/Minerals 1 tab 06/15/24 09:00 06/15/24 09:19 Multivitamins /C Lutein (Centrum Silver) Tablet *Bkc PO 1 tab DAILY RAVINDRA Administration Perflutren Lipid Microsphere 0 ml 06/14/24 15:04 Perflutren Lipid Microspheres 1.5 Ml Vial Diluted To 10 Ml Total Volume IV PUSH 06/17/24 15:04 ONCE PRN adequate visualization Protocol Umeclidinium/Vilanterol 1 puff 06/15/24 08:00 06/16/24 08:12 Umeclidinium/Vilanterol 62.5-25 Mcg Ellipta INHALATION Not Given DAILYRT [facility] Radiology Results: ITS Impressions Head CT 06/14/24 13:04 IMPRESSION: 1. Moderate nonspecific cerebral white matter disease, which likely represents chronic small vessel ischemic disease. Chest CTA 06/14/24 13:05 IMPRESSION: 1. No pulmonary embolus. 2. Moderate emphysema. 3. Moderate-sized sliding hiatal hernia. 4. Lucencies around the L2 screws, consistent with loosening. Carotid Doppler Study 06/15/24 08:45 Impression: No hemodynamically significant stenosis of the bilateral internal carotid arteries. Antegrade flow in the bilateral vertebral arteries. Note: The methodology used is an indirect measurement validated against a direct method (such as the NASCET criteria) that compares diameters at the stenosis to the distal ICA. Brain MRI 06/15/24 12:44 IMPRESSION: No acute infarct, intracranial hemorrhage, or mass lesion. Moderate chronic microvascular ischemic change and mild generalized atrophy. 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 Short segment severe stenosis in the distal right P1 segment. No large vessel intracranial occlusion. No carotid or vertebral artery occlusion, dissection, or significant stenosis. Labs Labs: Laboratory Results - last 24 hr 06/15/24 05:39 Triglycerides 117 Cholesterol 244 H LDL Cholesterol Direct 118 HDL Direct 89 Quality VTE Prophylaxis VTE prophylaxis: pharmacologic ordered
[2024-06-16 08:52] LABS: Basophils Percent Auto 0.5 % (0.2-1.2); Eosinophils Absolute Auto 0.1 K/mm3 (0-0.3); Eosinophils Percent Auto 1.4 % (0-4.4); Hematocrit 41.4 % (37.0-47.0); Hemoglobin 13.6 g/dL (12.0-15.0); Immature Granulocyte Absolute 0.01 K/mm3 (0.00-0.031); Immature Granulocyte Percent A 0.2 % (0-0.5); Lymphocytes Absolute Auto 1.28 K/mm3 (0.9-3.2); Mean Corpuscular HGB Conc 32.9 g/dl (32-36); Mean Corpuscular Hemoglobin 31.1 pg (26-34); Mean Corpuscular Volume 94.5 fl (80-100); Mean Platelet Volume 9.1 fl (7.4-10.4); Monocytes Absolute Auto 0.6 K/mm3 (0.1-0.6); Monocytes Percent Auto 10.1 % (2.6-8.5); Neutrophils Absolute Auto 3.8 K/mm3 (1.3-6.7); Neutrophils Percent Auto 65.8 % (45.5-73.1); Platelet Count Result 184 k/mm3 (150-375); Red Blood Count 4.38 M/mm3 (4.2-5.4); Red Cell Distribution Width 14.6 % (11.5-14.5); White Blood Count 5.8 K/mm3 (4.5-10.0)
[2024-06-16] MEDS: ASPIRIN 81 MG ENTERIC TABLET PO (09:04)
[2024-06-16] MEDS: MULTIVITAMINS /C LUTEIN (CENTRUM SILVER) TABLET *BKC 1 TAB PO (09:04)
[2024-06-16] MEDS: CEPHALEXIN 500 MG CAPSULE PO ×2 (09:04→20:14)
[2024-06-16] MEDS: ATORVASTATIN 40 MG TABLET PO (09:04)
[2024-06-16] MEDS: MELOXICAM 7.5 MG TABLET 15 MG PO (09:04)
[2024-06-16] MEDS: ACIDOPHILUS/BULGARICUS CHEWABLE TABLET 1 TABLET BY MOUTH ×2 (09:04→17:32)
[2024-06-16] MEDS: LOSARTAN POTASSIUM 25 MG TABLET PO ×2 (09:04→20:14)
[2024-06-16] MEDS: ENOXAPARIN 40 MG/0.4 ML SYRINGE SUB-Q (09:05)
[2024-06-16 09:22] LABS: Alanine Aminotransferase 17 U/L (6-35); Albumin Level 3.9 g/dL (3.5-5.1); Alkaline Phosphatase 62 U/L (38-126); Anion Gap 4 mmol/L (4-12); Aspartate Amino Transferase 27 U/L (14-36); Bilirubin,Total 0.7 mg/dL (0.2-1.3); Blood Urea Nitrogen 17 mg/dL (7-17); Carbon Dioxide 28 mmol/L (22-30); Chloride 102 mmol/L (98-107); Estimated CRCL calculation 48 ml/min; Estimated Glomerular Filt Rate > 60; Glucose 92 mg/dL (65-110); Potassium 4.3 mmol/L (3.4-5.0); Sodium 134 mmol/L (137-145)
--- NOTE | 2024-06-16 12:42 | P.NEURO_ITS ---
Neurology EEG Report General Information Date of Study: 06/16/24 TEST Electroencephalogram DIAGNOSIS loss of consciousness CONDITION OF RECORDING bedside recording EEG NUMBER [id number] CLINICAL HISTORY history of dizziness followed by loss of consciousness for 30 minutes EEG DESCRIPTION During wakefulness the background activity consists of posterior dominant alpha rhythm at 8 hertz with an amplitude of 15-30 microvolts which appears mildly formed. Anteriorly low amplitude mixed frequency activity was seen however muscle tension artifacts appeared while awake in the frontotemporal area frequently. However focal slowing and occasional sharp activity was seen over left temporal area intermittently. Patient did not progress to stage 2 sleep but was noted to be intermittently drowsy during which attenuation of background activity was seen. Hyperventilation or photic stimulation were not performed. IMPRESSION This is a mild abnormal EEG due to presence of mild focal slow wave activity seen intermittently over the left temporal area. Occasional sharp transients also seen. Focal slow wave abnormalities may raise possibility of underlying structural lesion. Sharp transients considered nonspecific focal interictal abnormality. however such abnormalities may be seen in many elderly subjects due to underlying atrophy and hence clinical and if necessary radiographic santhosh elation may be helpful.
[2024-06-16] MEDS: PERFLUTREN LIPID MICROSPHERES 1.5 ML VIAL DILUTED TO 10 ML TOTAL VOLUME IV PUSH (13:30)
--- NOTE | 2024-06-16 14:28 | IVDEFINITY ---
Prior to administration of IV Definity the patient was educated on the risks and benefits of the imaging enhancing agent including potential adverse side effects. The patient verbalized understanding. Allergies were verified. No exclusion criteria were identified and at least one of the following inclusion criteria were met: 1) physician request, 2) patient technically difficult to image (per the [place] [employer] guidelines of two or more segments not discernable within the apical view), or 3) questionable left ventricular function. ?
--- NOTE | 2024-06-16 15:04 | ECHO_ITS ---
Patient Info Name: Sandra Braswell Age: 83 years : 1940 Gender: Female Ht: 63 in Wt: 210 lbs BSA: 2.10 m2 HR: 77 bpm BP: 161 / 72 mmHg Heart Rhythm: Sinus Rhythm Technical Quality: Fair Exam Date: 06/16/2024 1:17 PM Exam Location: Echo Lab Patient Status: Inpatient Admit Date: 06/14/2024 Staff Ordering Physician: Fabiana Mendez PA-C Irrigation Equipment Remover: Shelley Richardson RDCS Attending Provider: Abby Tompkins APRN Referring Physician: Vanessa MENDOZA; Exam Type: CA echo dop color flow w con Study Info Indications - Prolonged syncope Complete two-dimensional, color flow and Doppler transthoracic echocardiogram is performed with contrast to opacify the left ventricle and to improve the deliniation of the left ventricle endocardial borders. Contrast/Agitated Saline Contrast/Ag. Saline: Definity Amount: 2.00 ml Administered By: Shelley Richardson RDCS Existing IV Access: Yes IV Access Condition: patent with no signs of infiltration Summary 1. Left ventricular systolic function is normal, estimated at >70%. 2. The left ventricular diastolic function is grade I diastolic dysfunction. 3. There is trace aortic valve regurgitation. 4. There is mild aortic valve calcification. 5. There is mild tricuspid valve regurgitation. 6. No pulmonary hypertension, estimated pulmonary arterial systolic pressure is 21 mmHg. 7. There is mild pulmonic regurgitation. Left Ventricle Left ventricular chamber dimension is normal. Left ventricular systolic function is normal, estimated at >70%. There is no increased left ventricular wall thickness. Left ventricular septal wall motion is normal. The left ventricular diastolic function is grade I diastolic dysfunction. Right Ventricle Right ventricular chamber dimension is normal. Right ventricular systolic function is normal. Left Atria Left atrial chamber dimension is normal. Right Atria Right atrial chamber dimension is normal. Atrial Septum Intact interatrial septum visualized by color flow imaging. Aortic Valve The aortic valve is trileaflet. There is no aortic valve stenosis. There is trace aortic valve regurgitation. There is mild aortic valve calcification. Pulmonic Valve The pulmonic valve is normal. There is no pulmonic valve stenosis. There is mild pulmonic regurgitation. Mitral Valve The mitral valve has normal leaflets. There is no mitral valve stenosis. There is no mitral valve regurgitation. Tricuspid Valve The tricuspid valve leaflets are normal. There is no significant tricuspid valve stenosis. There is mild tricuspid valve regurgitation. No pulmonary hypertension, estimated pulmonary arterial systolic pressure is 21 mmHg. Pericardium/Pleural The pericardium appears normal. There is no pericardial effusion. Inferior Vena Cava Normal inferior vena cava with >50% collapse upon inspiration consistent with Empty right atrial pressure, 5 mmHg. Aorta The aortic root size at the sinus of Valsalva is normal. The prox ascending aorta size is normal. Left Ventricular Outflow Tract Name Value Normal LVOT 2D LVOT Diameter 1.96 cm LVOT Doppler LVOT Peak Gradient 4 mmHg LVOT Mean Gradient 2 mmHg LVOT VTI 19.02 cm LVOT VTI/AV VTI Ratio 0.61 LVOT Stroke Volume 57.24 ml LVOT CO 4.52 l/min LVOT CI 2.15 L/min/m2 Pulmonic Valve Name Value Normal RVOT Doppler RVOT Peak Gradient 2 mmHg PV Doppler PV Peak Gradient 5 mmHg Mitral Valve Name Value Normal MV Doppler MV Decel [place] 294.79 cm/s2 MV PHT 0 s MV Area (PHT) 3.44 cm2 4.00-5.00 MV Diastolic Function MV E Peak Velocity 65.00 cm/s MV A Peak Velocity 88.27 cm/s MV E/A 0.74 MV Decel Time 0 s MV Annular TDI MV E/e' (Septal) 7.64 <=8.00 MV E/e' (Lateral) 6.85 <=8.00 MV E/e' (Average) 7.24 Tricuspid Valve Name Value Normal TV Regurgitation Doppler TR Peak Velocity 201.91 cm/s TR Peak Gradient 16 mmHg Estimated PAP/RSVP RA Pressure 5 mmHg <=5 PA Systolic Pressure 21 mmHg <36 RV Systolic Pressure 21 mmHg <36 Aorta Name Value Normal Ascending Aorta Ao Root Diameter (MM) 3.37 cm Ao Root Diam Index (MM) 1.60 cm/m2 Aortic Valve Name Value Normal AV Doppler AV Peak Velocity 148.81 cm/s AV Peak Gradient 9 mmHg AV Mean Gradient 5 mmHg AV VTI 31.12 cm AV Area (Cont Eq VTI) 1.84 cm2 >=3.00 AV Area (Cont Eq Crow) 2.05 cm2 AV Regurgitation 2D LVOT Area 3.01 cm2 Ventricles Name Value Normal LV Dimensions 2D/MM IVS Diastolic Thickness (2D) 0.79 cm 0.60-1.00 LVID Diastole (2D) 4.56 cm 3.80-5.20 LVIW Diastolic Thickness (2D) 0.79 cm 0.60-0.90 LVID Systole (2D) 2.48 cm 2.20-3.50 LVOT Diameter 1.96 cm LV Mass (2D Cubed) 114.80 g 67.00-162.00 LV Mass Index (2D Cubed) 0.01 g/cm2 0.00-0.01 Relative Wall Thickness (2D) 0.35 LV Fractional Shortening/Ejection Fraction 2D/MM LV Fractional Shortening (2D) 46 % 27-45 LV EF (2D Teicholz) 77 % 54-74 LV Diastolic Volume (4C MOD) 54.63 ml LV EF (4C MOD) 73 % LV Diastolic Volume (2C MOD) 43.26 ml LV EF (2C MOD) 69 % LV Diastolic Volume (BP MOD) 50.25 ml 46.00-106.00 LV Diastolic Volume Index (BP MOD) 0.02 l/m2 0.03-0.06 LV Systolic Volume (BP MOD) 14.61 ml 14.00-42.00 LV Systolic Volume Index (BP MOD) 0.01 l/m2 0.01-0.02 LV EF (BP MOD) 71 % 54-74 LV Diastolic Length (4C) 7.14 cm LV Systolic Length (4C) 5.08 cm LV Stroke Volume (4C MOD) 40.06 ml Atria Name Value Normal LA Dimensions LA Dimension (MM) 3.32 cm 2.70-3.80 LA Volume (4C A-L) 40.46 ml LA Volume (BP A-L) 40.73 ml RA Dimensions RA Area (4C) 9.08 cm2 <=18.00 Report Signatures
[2024-06-16] MEDS: UMECLIDINIUM/VILANTEROL 62.5-25 MCG ELLIPTA 1 PUFF INHALATION (16:59)
[2024-06-16] MEDS: ACETAMINOPHEN 325 MG TABLET 650 MG PO (21:47)
[2024-06-17] VITALS: PULSE 78
[2024-06-17 04:00] VITALS: BP 154/76; PULSE 70; PULSE 73; RESP 20; TEMP 36.7; O2SAT 96
[2024-06-17 06:14] LABS: Basophils Percent Auto 0.5 % (0.2-1.2); Eosinophils Absolute Auto 0.1 K/mm3 (0-0.3); Eosinophils Percent Auto 1.2 % (0-4.4); Hematocrit 38.4 % (37.0-47.0); Hemoglobin 12.8 g/dL (12.0-15.0); Immature Granulocyte Absolute 0.02 K/mm3 (0.00-0.031); Immature Granulocyte Percent A 0.3 % (0-0.5); Lymphocytes Absolute Auto 1.23 K/mm3 (0.9-3.2); Lymphocytes Percent Auto 20.3 % (18.3-44.2); Mean Corpuscular HGB Conc 33.3 g/dl (32-36); Mean Corpuscular Hemoglobin 31.6 pg (26-34); Mean Corpuscular Volume 94.8 fl (80-100); Mean Platelet Volume 9.3 fl (7.4-10.4); Monocytes Absolute Auto 0.7 K/mm3 (0.1-0.6); Monocytes Percent Auto 11.9 % (2.6-8.5); Neutrophils Percent Auto 65.8 % (45.5-73.1); Platelet Count Result 161 k/mm3 (150-375); Red Blood Count 4.05 M/mm3 (4.2-5.4); Red Cell Distribution Width 14.4 % (11.5-14.5); White Blood Count 6.1 K/mm3 (4.5-10.0)
[2024-06-17 06:28] LABS: Alanine Aminotransferase 15 U/L (6-35); Albumin Level 3.6 g/dL (3.5-5.1); Alkaline Phosphatase 59 U/L (38-126); Anion Gap 3 mmol/L (4-12); Aspartate Amino Transferase 23 U/L (14-36); Blood Urea Nitrogen 19 mg/dL (7-17); Calcium 8.5 mg/dL (8.4-10.2); Carbon Dioxide 29 mmol/L (22-30); Chloride 100 mmol/L (98-107); Estimated CRCL calculation 48 ml/min; Estimated Glomerular Filt Rate > 60; Glucose 93 mg/dL (65-110); Potassium 4.2 mmol/L (3.4-5.0); Sodium 132 mmol/L (137-145)
[2024-06-17 08:00] VITALS: BP 158/98; PULSE 86; PULSE 96; RESP 18; TEMP 36.6; O2SAT 98
[2024-06-17] MEDS: UMECLIDINIUM/VILANTEROL 62.5-25 MCG ELLIPTA 1 PUFF INHALATION (08:10)
[2024-06-17] MEDS: ACIDOPHILUS/BULGARICUS CHEWABLE TABLET 1 TABLET BY MOUTH (08:13)
[2024-06-17] MEDS: CEPHALEXIN 500 MG CAPSULE PO (08:13)
[2024-06-17] MEDS: MELOXICAM 7.5 MG TABLET 15 MG PO (08:13)
[2024-06-17] MEDS: ATORVASTATIN 40 MG TABLET PO (08:13)
[2024-06-17] MEDS: LOSARTAN POTASSIUM 25 MG TABLET PO (08:13)
[2024-06-17] MEDS: ASPIRIN 81 MG ENTERIC TABLET PO (08:13)
[2024-06-17] MEDS: ENOXAPARIN 40 MG/0.4 ML SYRINGE SUB-Q (08:13)
[2024-06-17] MEDS: ACETAMINOPHEN 325 MG TABLET 650 MG PO (08:14)
[2024-06-17] MEDS: MULTIVITAMINS /C LUTEIN (CENTRUM SILVER) TABLET *BKC 1 TAB PO (08:14)
[2024-06-17 09:39] VITALS: BP 97/72; PULSE 83; RESP 16; TEMP 37.2; O2SAT 98
[2024-06-17 09:41] VITALS: BP 125/73; BP 135/76; PULSE 106; PULSE 98; RESP 16; RESP 20; O2SAT 99
--- NOTE | 2024-06-17 12:41 | P.CONCA_ITS ---
Assessment and Plan Assessment and plan (1) Syncope: Code(s): R55 - Syncope and collapse Status: Acute Assessment and Plan: Orthostatic vital signs negative. Echocardiogram unremarkable. Recommend 30 day event monitor, which patient can worm picker from our office after discharge. (2) Essential hypertension: Code(s): I10 - Essential (primary) hypertension Status: Acute Assessment and Plan: Continue Losartan. (3) Chronic hyponatremia: Code(s): E87.1 - Hypo-osmolality and hyponatremia Status: Acute Assessment and Plan: Stable. (4) Hyperlipemia: Code(s): E78.5 - Hyperlipidemia, unspecified Status: Acute Assessment and Plan: Continue Atorvastatin. Plan Okay for discharge from my standpoint. Recommendations and plan discussed with Hospitalist. Order for outpatient 30 day monitor placed. Cardiology will sign off at this time, please call us back if needed. History of Present Illness History of Present Illness Consult date/time: 06/17/24 12:41 Requesting physician: Abby Tompkins APRN Consult reason: Other (Syncope) Reason For Visit: Syncope Narrative: We are consulted for syncope. This is an 83 year old female with COPD, anxiety, GERD who presented after a syncopal episode. History also obtained from patient's who was at bedside. Patient had gotten out of the shower and was trying to wrap a towel around her. She then suddenly lost consciousness. states it was for about 15 minutes prior to regaining consciousness. No prodromal symptoms. Head CT shows moderate nonspecific cerebral white matter disease, which likely represents chronic small vessel ischemic disease. Chest CTA negative for pulmonary embolism, moderate emphysema, moderate-sized sliding hiatal hernia. Carotid Duplex shows no hemodynamically significant stenosis of the bilateral internal carotid arteries. Brain MRI with no acute infarct. EKG with sinus rhythm, PACs. Echocardiogram shows LVEF >70%, mild TR, mild AK. Tele without any arrhythmias thus far. She is otherewise feeling well now. Review of Systems Review of Systems: All systems reviewed & are unremarkable except as noted in HPI and below (HPI) [facility] Past Medical History Medical History Acquired right foot drop Anxiety Chronic back pain Chronic hyponatremia Chronic obstructive pulmonary disease Degenerative joint disease Diverticulitis Essential hypertension Gastroesophageal reflux disease Herpes zoster without complication Hyperlipemia Impaired glucose tolerance Peripheral polyneuropathy Restless leg syndrome Surgical History Surgical History H/O lumbosacral spine surgery History of arthroplasty of left knee (2009) History of bladder suspension procedure History of cataract extraction with lens replacement History of hysterectomy History of lumbar fusion Family History Family History Mother Family history of osteoporosis Father Acute myocardial infarction, Onset Age: 83 Patient's father is Sibling Family history of lymphoma Family history of malignant neoplasm of male breast Social History Social History Social History: Surrogate medical decision maker: Lucho French, spouse. Code status: Full code. Smoking packs per day: 1 Smoking cigarettes per day: 20.0 Years smoked: 15 Smoking pack-years: 15.00 Smoking status: Former smoker Alcohol intake: never Substance use: never Substance use type: does not use Do You Feel Safe in your Home?: Yes Lack of Transportation: No Lack of Food: Never True Current Housing: I Have Housing Concerned About Future Housing: No Difficulty Paying Gas/Electric Bills: No Difficulty Paying for Meds: No Currently Unemployed: No Education: High School Diploma/GED Difficulty w/ Childcare or Family Care: No Living arrangements: with family Occupation/Education: retired Spiritual care concerns: No Agree to blood products: Yes Meds Home Medications and Allergies Home Medications Medication Instructions Recorded Confirmed Type Bacillus coagulans 10 billion cell 1,000,000 cell PO BID 07/08/19 06/14/24 History capsule,delayed release (Probiotic (B. coagulans)) carboxymethylcellulose 0.5 1 drop ophthalmic (eye) BID PRN 07/08/19 06/14/24 History %-glycerin 0.9 % eye drops Dry Eyes (Refresh Optive) qgzaqxny-ayu-wzsgl acid 0.4 1 tablet PO DAILY 07/08/19 06/14/24 History mg-lycopene 300 mcg-lutein 250 mcg tablet (Centrum Silver) umeclidinium 62.5 mcg-vilanterol 1 inhalation inhalation DAILY 07/08/19 06/14/24 History 25 mcg/actuation powdr for inhalation (Anoro Ellipta) meloxicam 15 mg tablet 15 mg PO QAM 06/09/20 11/09/24 History acetaminophen 650 mg 650 mg PO BID 07/26/21 06/14/24 History tablet,extended release (Tylenol 8 Hour) albuterol sulfate 90 mcg/actuation 2 puff inhalation DAILY PRN 05/28/24 06/14/24 History aerosol inhaler (ProAir HFA) Respiratory Distress cephalexin 500 mg capsule 500 mg PO Q12H 05/28/24 06/14/24 History diazepam 2 mg tablet (Valium) 2 mg PO BID PRN muscle spasm #30 05/28/24 06/14/24 Rx tabs omeprazole 20 mg capsule,delayed See Rx Instructions .Route 05/28/24 06/14/24 Rx release .COMPLEX #90 caps lorazepam 1 mg tablet (Ativan) 1 mg PO ONCE PRN agitation #1 06/02/24 06/14/24 Rx tablet fluticasone propionate 50 1 spray intranasal BID PRN sinus 06/14/24 06/14/24 History mcg/actuation nasal allergy spray,suspension (Allergy Relief (fluticasone)) Allergies Allergy/AdvReac Type Severity Reaction Status Date / Time codeine Allergy Intermediate Syncope Verified 06/14/24 11:16 hydrocodone Allergy Unknown syncope Verified 06/14/24 11:16 Vital Signs Vital Signs - 24 hr 06/16/24 15:25 06/16/24 16:59 06/16/24 16:00 Temperature 37.0 C Pulse Rate 78 81 78 Respiratory Rate 18 20 Blood Pressure 125/72 Pulse Oximetry 100 Oxygen Delivery 06/16/24 20:00 06/16/24 20:00 06/16/24 23:22 Temperature 36.8 C 36.8 C 36.8 C Pulse Rate 72 85 75 Respiratory Rate 20 20 18 Blood Pressure 173/79 H 165/54 H 144/70 H Pulse Oximetry 100 99 96 Oxygen Delivery 06/16/24 20:00 06/16/24 20:00 06/17/24 00:00 Temperature Pulse Rate 75 86 78 Respiratory Rate 18 Blood Pressure Pulse Oximetry 96 Oxygen Delivery Room Air 06/17/24 04:00 06/17/24 04:00 06/17/24 08:00 Temperature 36.7 C 36.6 C Pulse Rate 70 73 96 Respiratory Rate 20 18 Blood Pressure 154/76 H 158/98 H Pulse Oximetry 96 98 Oxygen Delivery 06/17/24 09:39 06/17/24 09:41 06/17/24 09:41 Temperature 37.2 C Pulse Rate 83 106 H 98 Respiratory Rate 16 16 20 Blood Pressure 97/72 L 125/73 135/76 Pulse Oximetry 98 99 99 Oxygen Delivery 06/17/24 08:00 06/17/24 08:00 Temperature Pulse Rate 86 Respiratory Rate Blood Pressure Pulse Oximetry Oxygen Delivery Room Air Exam Const: General: comfortable and no acute distress HENMT: Mouth: Yes moist mucous membranes Eyes: General: appearance normal, both eyes and all related structures Sclera: sclerae normal Resp: Effort & Inspection: normal respiratory effort Cardio: Rate: regular rate Rhythm: regular rhythm Heart sounds: no murmurs Skin: General skin exam: normal color Neuro: Speech: normal speech Psych: Mental Status: mental status grossly normal Affect: normal affect Results Labs and Meds 06/17/24 05:43 06/17/24 05:43 Lab results: Cardiac Enzymes 06/17/24 Range/Units 05:43 AST 23 (14-36) U/L CBC 06/17/24 Range/Units 05:43 WBC 6.1 (4.5-10.0) K/mm3 RBC 4.05 L (4.2-5.4) M/mm3 Hgb 12.8 (12.0-15.0) g/dL Hct 38.4 (37.0-47.0) % Plt Count 161 (150-375) k/mm3 Lymph # (Auto) 1.23 (0.9-3.2) K/mm3 [place] # (Auto) 0.7 H (0.1-0.6) K/mm3 Eos # (Auto) 0.1 (0-0.3) K/mm3 Baso # (Auto) 0.0 (0.0-0.1) K/mm3 Comprehensive Metabolic Panel 06/17/24 Range/Units 05:43 Sodium 132 L (137-145) mmol/L Potassium 4.2 (3.4-5.0) mmol/L Chloride 100 (98-107) mmol/L Carbon Dioxide 29 (22-30) mmol/L BUN 19 H (7-17) mg/dL Creatinine 0.80 (0.7-1.0) mg/dL Glucose 93 (65-110) mg/dL Calcium 8.5 (8.4-10.2) mg/dL AST 23 (14-36) U/L ALT 15 (6-35) U/L Alkaline Phosphatase 59 (38-126) U/L Total Protein 6.0 L (6.3-8.2) g/dL Albumin 3.6 (3.5-5.1) g/dL Intake and Output 06/16/24 06/17/24 06/17/24 23:59 07:59 15:59 Intake Total 600 480 640 Balance 600 480 640 Intake: Oral 600 480 640 Other: # Unmeasured Voids 2 1 Patient Weight 06/17/24 23:59 Weight 88.2 kg
[2024-06-17 13:00] VITALS: BP 162/71; PULSE 89; RESP 16; TEMP 36.7; O2SAT 100
--- NOTE | 2024-06-17 14:27 | PM.DS ---
DS: Admitting Diagnosis Discharge Date 06/17/24 Admitting Diagnosis Syncope Elevated lactic acid level Chronic hyponatremia Anxiety DS: Discharge Diagnosis Discharge Diagnosis (1) Syncope: Code(s): R55 - Syncope and collapse Status: Acute (2) Essential hypertension: Code(s): I10 - Essential (primary) hypertension Status: Acute (3) Elevated lactic acid level: Code(s): R79.89 - Other specified abnormal findings of blood chemistry Status: Acute (4) Chronic hyponatremia: Code(s): E87.1 - Hypo-osmolality and hyponatremia Status: Acute (5) Anxiety: Code(s): F41.9 - Anxiety disorder, unspecified Status: Acute DS: Summary Hospital Course Reason for hospitalization: Syncope Elevated lactic acid level Chronic hyponatremia Anxiety Hospital Course: This is an 83 year old female who presented to the hospital on 06/14/24 after experiencing a syncopal episode with unresponsiveness for approximately 30 minutes after taking a shower. She was brought in by EMS. She was found to have high blood pressure readings on arrival to the ER. Workup in the hospital included orthostatic blood pressures which did not show a drop in blood pressure or heart rate. Head CT shown moderate nonspecific cerebral white matter disease representing chronic small vessel ischemic disease. Chest CTA was negative for PE, moderate emphysema, moderate sized sliding hiatal hernia. Labs revealed a Na+ 131, bicarb 21, chloride 97, Lactic acid 2.3>1.5. UA shown cloudy appearance, 2+ protein, trace ketones, 1+ urine bilirubin, 3-5 urine RBCs, >20 casts. Patient was given 1L NS while in the ER. Neurology consulted. EEG showed some focal slowing and sharp wave activity over left temporal area. Echocardiogram was done and did not show any significant abnormality. Cardiology was consulted and is recommending a 30 day event monitor. She did have orthostatic vital signs which were negative for orthostatic hypotension. Vital signs are stable, she is afebrile, she is currently on room air. She is stable for discharge at this time and will need to follow up with Cardiology in 1 month as well as Neurology. She was started on aspirin and atorvastatin for stroke prevention. Final diagnosis: Syncope, lactic acidosis, TIA, hyponatremia Status at Discharge Cognitive/behavioral status at discharge: Alert and oriented x3 Functional status at discharge: uses cane/walker Overall status at discharge: patient is progressing back to baseline Time Spent with Patient Time attestation: Total time spent providing and/or coordinating discharge services: Time spent: Greater than 30 minutes Exam Narrative: General: In no acute distress, well nourished Cardiac: Normal S1 and S2. No murmur, gallops or friction rubs, peripheral pulses intact. Respiratory: Lungs clear to auscultation, no adventitious lung sounds, currently on room air Neuro: Alert and oriented x4, cranial nerves intact, no neuro deficits. No facial droop or slurred speech DS: Data Data Completed and Pending Completed studies during hospitalization: Head CT Chest CTA Carotid Doppler study Brain MRI Head neck CTA Pending studies at discharge: None Labs on day of discharge: Labs from last 24 hours 06/17/24 05:43 WBC 6.1 RBC 4.05 L Hgb 12.8 Hct 38.4 MCV 94.8 MCH 31.6 MCHC 33.3 RDW 14.4 Plt Count 161 MPV 9.3 Immature Gran % (Auto) 0.3 Neut % (Auto) 65.8 Lymph % (Auto) 20.3 [place] % (Auto) 11.9 H Eos % (Auto) 1.2 Baso % (Auto) 0.5 Lymph # (Auto) 1.23 [place] # (Auto) 0.7 H Eos # (Auto) 0.1 Baso # (Auto) 0.0 Abs Immat Gran (auto) 0.02 Absolute Neuts (auto) 4.0 Absolute Nucleated RBC 0.000 Nucleated RBC % 0.0 Sodium 132 L Potassium 4.2 Chloride 100 Carbon Dioxide 29 Anion Gap 3 L BUN 19 H Creatinine 0.80 Estim Creat Clear Calc 48 Estimated GFR > 60 Glucose 93 Calcium 8.5 Total Bilirubin 1.0 AST 23 ALT 15 Alkaline Phosphatase 59 Total Protein 6.0 L Albumin 3.6 Procedures/Treatments: None Discharge Plan Discharge Attending physician on discharge: Rosalinda Dewitt Consulting providers: Michele Myrick; Fabiana Mendez; Nicholas Pappas; Angus Taylor; Sadi Farah V.; Dmitri Corona; Ortega Nguyen; Walt Saldaña Discharging Clinician: Abby Tompkins Anticipated Discharge Date/Time: 06/17/24 14:21 Patient Disposition: Home, Self-Care Activity: as tolerated Diet: as tolerated Discharge Instructions: You will need halter monitor for 30 days. Follow up with cardiology after 30 days on monitor Follow up with Neurology in 2 weeks Continue aspirin, atorvastatin, and Losartan daily. Follow up with your primary care doctor in 1 week. Let them know you were started on these medications so they can continue them for you. Patient Instructions: Antibiotic Form, Losartan (By mouth) Patient Language: Kenyan Stand Alone Forms: General Discharge Information Follow-up/Referrals: Ale Griggs APN-C [Advanced Practice Nurse] - 4 Weeks Michele Myrick MD [Physician] - 4 Weeks Discharge Medications: New atorvastatin 40 mg Tablet 40 mg PO DAILY Qty: 30 0RF aspirin 81 mg Tablet,Delayed Release (Dr/Ec) 81 mg PO QAM Qty: 30 0RF losartan 25 mg Tablet 25 mg PO Q12HR Qty: 60 0RF Continued meloxicam 15 mg tablet 15 mg PO QAM acetaminophen [Tylenol 8 Hour] 650 mg tablet extended release 650 mg PO BID Rx Instructions: Noon and 2100 cephalexin 500 mg capsule 500 mg PO Q12H diazepam [Valium] 2 mg tablet 2 mg PO BID PRN (Reason: muscle spasm) Qty: 30 1RF Rx Instructions: 2-4 mg as needed for spasm omeprazole 20 mg capsule,delayed release(DR/EC) See Rx Instructions .ROUTE .COMPLEX Qty: 90 1RF Dose Instruction: TAKE 1 CAPSULE BY MOUTH DAILY Rx Instructions: TAKE 1 CAPSULE BY MOUTH DAILY fluticasone propionate [Allergy Relief (fluticasone)] 50 mcg/actuation spray,suspension 1 spray NASAL BID PRN (Reason: sinus allergy) Centrum Silver 0.4-300-250 mg-mcg-mcg tablet 1 tablet PO DAILY Refresh Optive 0.5-0.9 % drops 1 drop EACH EYE BID PRN (Reason: Dry Eyes) Probiotic (B. coagulans) 10 billion cell capsule,delayed release(DR/EC) 1,000,000 cell PO BID Anoro Ellipta 62.5-25 mcg/actuation blister with device 1 inhalation INHALATION DAILY albuterol sulfate [ProAir HFA] 90 mcg/actuation HFA aerosol inhaler 2 puff INHALATION DAILY PRN (Reason: Respiratory Distress) Other Ambulatory Orders: [place] cardiac event monitor (Routine) Timeframe: 1 Month Location: Determined by Patient Ordered By: Nicholas Pappas Date of admission: 06/14/24 13:29 Primary Care Provider: Winnie Lopez Admitting Provider: Chao Fernández Attending physician on admission: Abby Tompkins Condition: Improved Quality VTE Prophylaxis VTE prophylaxis: pharmacologic ordered
== END 2024-06-17 15:05 | disposition home or self-care (01) ==
LOC: ANHED 12:22 → ANH2MED 14:06
PROVIDERS: Physician Assistant; Admitting Provider Internal Medicine; Emergency Provider Emergency Medicine; PCP Nurse Practitioner Family; Visit Provider Nurse Practitioner Acute Care
DX: I10 Essential (primary) hypertension (principal); R55 Syncope and collapse; R79.89 Other specified abnormal findings of blood chemistry; E87.1 Hypo-osmolality and hyponatremia; F41.9 Anxiety disorder, unspecified; M21.371 Foot drop, right foot; J43.9 Emphysema, unspecified; K21.9 Gastro-esophageal reflux disease without esophagitis; K44.9 Diaphragmatic hernia without obstruction or gangrene; E78.5 Hyperlipidemia, unspecified; G25.81 Restless legs syndrome; G62.9 Polyneuropathy, unspecified; Z20.822 Contact with and (suspected) exposure to COVID-19; Z79.51 Long term (current) use of inhaled steroids; Z87.891 Personal history of nicotine dependence; Z79.899 Other long term (current) drug therapy; Z98.1 Arthrodesis status; Z96.1 Presence of intraocular lens; Z98.49 Cataract extraction status, unspecified eye; Z90.710 Acquired absence of both cervix and uterus
CPT/HCPCS: 36415; 70450; 70496; 70498; 70551; 71275; 80048; 80053; 80061; 81001; 83605; 83735; 85025; 85027; 85610; 85730; 87637; 93005; 93880; 94640; 95816; 96372; 96374; 96375; 99285; A9270; C8929; G0378; J0360; J1650; J7030; Q9957; Q9967

== ENCOUNTER 2024-10-29 13:42 | Outpatient (CLI) | payer MEDICARE, SELFPAY ==
--- OUTSIDE RECORDS SUMMARY | 2024-10-29 14:51 | XMS_ITS | Referral Summary ---
Author Organization [facility] Address [address] [place] [address] Care Team Providers Care Certified Ski Patroller Name Role Phone Peter Sommers DO Primary Care Provider [phone] Encounters Date Type Department Care Team Description 08/18/2024 2:30 PM DECAL DECORATOR Office Visit [facility] Cardiology [address] [place] [address] Sandor Jones MD Syncope and collapse (Primary Dx) from Last 3 Months Allergies Active Allergy Reactions Criticality Noted Date Comments Codeine Hydrocodone Syncope Reaction: passes out, , Hydrocodone Bitartrate Unknown 11/27/2018 Omeprazole Rash Medium 04/26/2016 Rash Oxycodone-Acetaminophen Nausea And Vomiting Medications omeprazole 20 mg tablet,delayed release (DR/EC) 1 Tablet daily 0 0 4 Active laqrmfvy-czf-TZ- lycopen-lutein (CENTRUM SILVER) 0.4-300-250 mg-mcg-mcg tablet 1 tablet daily 0 0 4 Active fluticasone (FLONASE) 50 mcg/actuation nasal spray inhale 1 spray by intranasal route every day in each nostril 0 spray 0 4 Active acetaminophen ER (TYLENOL) 650 mg 8 hr tablet Take 1 tablet (650 mg total) by mouth every 8 (eight) hours as needed for pain Active meloxicam (MOBIC) 15 mg tablet 2 Active diazePAM (VALIUM) 2 mg tablet Take 1 tablet (2 mg total) by mouth 2 (two) times a day as needed 2 Active cephalexin (KEFLEX) 500 mg capsule Take 1 capsule (500 mg total) by mouth 2 (two) times a day 4 Active umeclidinium-cuba anteroL (Anoro Ellipta) 62.5-25 mcg/actuation blister with device Inhale 1 puff daily 180 each 11 4 Active albuterol HFA (PROVENTIL HFA,VENTOLIN HFA,PROAIR HFA) 90 mcg/actuation inhalerIndicatio ns:Chronic obstructive pulmonary disease, unspecified COPD type (HCC) INHALE 2 PUFFS BY MOUTH EVERY 4 HOURS NEEDED FOR WHEEZING 8.5 g 3 4 Active atorvastatin (LIPITOR) 40 mg tablet Take 1 tablet (40 mg total) by mouth daily 4 Active aspirin 81 mg enteric coated tablet Take 1 tablet (81 mg total) by mouth daily Active losartan (COZAAR) 25 mg tablet Take 1 tablet (25 mg total) by mouth every 12 (twelve) hours 4 Active docusate sodium (COLACE) 100 mg capsuleIndicatio ns:constipation Take 1 capsule (100 mg total) by mouth 2 (two) times a day Active Active Problems Problem Noted Date Diagnosed Date Syncope and collapse 07/10/2024 Bronchial asthma 07/18/2016 Hypertension 07/18/2016 Osteoarthritis 07/18/2016 Open wound 07/18/2016 Surgical wound dehiscence 04/17/2016 Blood loss 04/04/2016 COPD, moderate 01/20/2016 Overview (04/18/2019): Patient has moderate COPD. Clinically stable. DC Spiriva , switch to combined beta agonist/anticholinergic therapy. Continue p.r.n. albuterol Dyspnea 01/20/2016 Gastroesophageal reflux disease 01/20/2016 Shortness of breath 01/20/2016 Spinal stenosis at L4-L5 level 12/08/2015 Trochanteric bursitis of both hips 12/08/2015 Essential hypertension 07/14/2014 Overview (11/10/2016): Essential hypertension Primary localized osteoarthrosis, lower leg 05/07 Immunizations Immunization Administration Dates Next Due Influenza, Trivalent, Adjuvanted, Intramuscular 05/29/2018 Influenza, Trivalent, Preservative Free, Intramu scular 05/19/2015 Pneumococcal Polysaccharide PPV23 08/19/2014 Social History Tobacco Use Types Packs/Day Years Used Date Smoking Tobacco: Former Smokeless Tobacco: Never Tobacco Cessation:Counseling Given: Not Answered Comments:Quit in 50s, 1 PPD x 30 years Alcohol Use Standard Drinks/Week Comments Yes 0 (1 standard drink = 0.6 oz pur e alcohol) Comments Unknown Sex and Gender Information Value Date Recorded Sex Assigned at Not on file Legal Sex Female 3:29 AM DECAL DECORATOR Gender Identity Not on file Sexual Orientation Not on file Last Filed Vital Signs Vital Sign Reading Time Taken Comments Blood Pressure 138/62 08/18/2024 2:30 PM DECAL DECORATOR Pulse 102 08/18/2024 2:30 PM DECAL DECORATOR Temperature 36.7 C (98 F) 12/10/2023 1:49 PM CDT Respiratory Rate 18 12/10/2023 1:49 PM CDT Oxygen Saturation 96% 08/18/2024 2:30 PM DECAL DECORATOR Inhaled Oxygen Concentration - - Weight 87.5 kg (192 lb 14.4 oz) 08/18/2024 2:30 PM DECAL DECORATOR Height 160 cm (5' 3 ) 08/18/2024 2:30 PM DECAL DECORATOR Body Mass Index 34.17 08/18/2024 2:30 PM DECAL DECORATOR Plan of Treatment Not on file Insurance MEDICARE [facility] CHOICE PLUS [facility] MEDICARE MEDICARE [facility] CHOICE PLUS Advance Directives For more information, please contact: [phone] Documents on File Type Date Recorded Patient Rn Ccu Expl anation ADVANCE DIRECTIVE 04/27/2016 12:00 AM ROBI R OF [employer] COUNTER ATTENDANT FINANCIAL/MEDICAL Care Teams Certified Ski Patroller Relationship Specialty Start Date End Date Peter Sommers DO PCP - General Internal Medicine 04/22/19
--- OUTSIDE RECORDS SUMMARY | 2024-10-29 14:51 | XMS_ITS | Encounter Summary ---
Author Organization [facility] Address [address] [place] [address] Care Team Providers Care Equipment Maintenance Engineer Name Role Phone Peter Sommers Primary Care Provider [phone] Reason for Visit * Reason Comments Medication Refill Encounter Details Date Type Department Care Team (Late Contact Info) Description 04/21/2019 Refill [facility] Orthopedic Surgery - [facility] [address] [address] Lucho Todd MD [address] [address] [place] [address] Social History Tobacco Use Types Packs/Day Years Used Date Smoking Tobacco: Former Alcohol Use Standard Drinks/Week Comments Yes 0 (1 standard drink = 0.6 oz pur e alcohol) rare Comments No Sex and Gender Information Value Date Recorded Sex Assigned at Not on file Legal Sex Female 2:15 PM CDT Gender Identity Not on file Sexual Orientation Not on file documented as of this encounter Plan of Treatment Upcoming Encounters Date Type Department Care Team (Late st Contact Info) Description 11/25/2024 11:00 AM CDT Office Visit [facility] Orthopedic Surgery at the [facility] Medicine [address] [place] [address] Lucho Todd MD [address] [address] [place] [address] documented as of this encounter Visit Diagnoses Not on filedocumented in this encounter Care Teams Equipment Maintenance Engineer Relationship Specialty Start Date End Date Peter Sommers DO [address] [facility] [address] [facility] [address] [place] [id number] PCP - General Internal Medicine 02/25/20 documented as of this encounter
--- OUTSIDE RECORDS SUMMARY | 2024-10-29 14:51 | XMS_ITS | Encounter Summary ---
Author Organization [facility] Health Address [facility] [place] [address] Care Team Providers Care Toll Repairer Central Office Name Role Phone Lance Pringle MD Primary Care Provider [phone] Peter Sommers DO Primary Care Provider [phone] Juan Jose Anne MD Unavailable [phone] Encounter Details Date Type Department Care Team (Late st Contact Info) Description 11/08/2016 [facility] Visit [facility]TERNAL [facility] DEPT Unknown, Provider Social History Tobacco Use Types Packs/Day Years Used Date Smoking Tobacco: Former Cigarettes Q uit: 08/06/1995 Alcohol Use Standard Drinks/Week Comments Yes 0 (1 standard drink = 0.6 oz pur e alcohol) Sex and Gender Information Value Date Recorded Sex Assigned at Not on file Gender Identity Not on file Sexual Orientation Not on file documented as of this encounter Functional Status Functional Status Response Date of Assess ment Is person deaf or have serious hearing difficult y? No 05/31/2016 Is person blind or have serious difficulty seein g? No 05/31/2016 Does person have serious dif ficulty walking/climbing stairs? Yes 05/31/2016 Does person have difficulty dressing/bathing? Ye s 05/31/2016 Does person have difficulty doing errands alone? Yes 05/31/2016 Cognitive Status Response Date of Assessm ent Does person have difficulty concentrating/remembering/making decisions? No 05/31/2016 documented as of this encounter Plan of Treatment Not on file documented as of this encounter Visit Diagnoses Not on filedocumented in this encounter Care Teams Toll Repairer Central Office Relationship Specialty Start Date End Date Lance Pringle MD [address] [place] [address] PCP - General Internal Medicine 01/25/16 03/28/21 Peter Sommers DO [address] [place] [address] PCP - General Internal Medicine 03/29/21 [place] [id number] [address] Physical Medicine and Rehabilitation 03/29/21 documented as of this encounter
--- OUTSIDE RECORDS SUMMARY | 2024-10-29 14:51 | XMS_ITS | Encounter Summary ---
Author Organization [facility] Address [address] [facility] [place] [address] Care Team Providers Care Otolaryngology Rep Name Role Phone Lance Pringle MD Primary Care Provider [phone] Peter Sommers DO Primary Care Provider [phone] Juan Jose Anne MD Unavailable [phone] Encounter Details Date Type Department Care Team (Late st Contact Info) Description 06/16/2020 Lab Requisition [facility] [address] [facility], [place] [phone] Eva Bar MD [address] [facility] [address] [place] [address] Social History Tobacco Use Types Packs/Day Years [...] Is person blind or have serious difficulty seeanup g? No 05/31/2016 Does person have serious dif ficulty walking/climbing stairs? Yes 05/31/2016 Does person have difficulty dressing/bathing? Ye s 05/31/2016 Does person have difficulty doing errands alone? Yes 05/31/2016 Cognitive Status Response Date of Assessm ent Does person have difficulty concentrating/remembering/making decisions? No 05/31/2016 documented as of this encounter Plan of Treatment Not on file documented as of this encounter Procedures Procedure Name Priority Date/Time Associated Diagnosis Comments DERMATOPATHOLOGY Routine 06/15/2020 12:0 0 AM LIFE SCIENCES TEACHER documented in this encounter Results * DERMATOPATHOLOGY (06/15/2020 12:00 AM LIFE SCIENCES TEACHER) Case Report Dermatopathology Report Case: [id number] Authorizing Provider: Eva Bar MD Collected: 06/15/2020 12:00 AM Ordering Location: [facility] Received: 06/16/2020 07:55 AM Pathologist: Shy Schmid MD Specimen: Skin, right neck 0 5:38 PM LIFE SCIENCES TEACHER DERMATOPATHOLOGY LABORATORY Final Diagnosis Specimen A. SKIN, right neck: DERMAL SCAR RESIDUAL SQUAMOUS CELL CARCINOMA NOT IDENTIFIED (L90.5) 0 5:38 PM LIFE SCIENCES TEACHER DERMATOPATHOLOGY LABORATORY Clinical History R/O SCC, well differentiated, bx proven. 0 5:38 PM LIFE SCIENCES TEACHER DERMATOPATHOLOGY LABORATORY Gross Description Specimen A: Received is one formalin filled container labeled with the patient's name and designated right neck. The specimen consists of a non-oriented ellipse of skin measuring [id number]. The epidermal surface consists of a centrally located 3x3mm previous biopsy site. The margin is inked green. The 12 o'clock and 6 o'clock tips are submitted in cassette 1. The remainder of the ellipse is serially sectioned and submitted in cassettes 2-3. Jar 0. 0 5:38 PM LIFE SCIENCES TEACHER DERMATOPATHOLOGY LABORATORY Microscopic Description Specimen A. SKIN, right neck: There are fibroblasts and collagen bundles oriented parallel to the skin surface. There are elongated blood vessels, some of which are oriented perpendicular to the skin surface. No residual squamous cell carcinoma is identified. 0 5:38 PM [facility] DERMATOPATHOLOGY LABORATORY Disclaimer An external and internal positive and negative controls are appropriate for the histochemical, immunohistochemical and immunofluorescence stain(s) in this case (if any), except where stated explicitly. The performance characteristics of the stain(s) cited in this report were developed and its performance characteristic determined by the Dermatopathology Laboratory at [facility], directed by Dr. Devin Schmid. These tests need not be, and therefore are not, approved by the [place] Food and Drug Administration. The tests are used for clinical purposes. Billing Codes Specimen Charges Stain Charges 14657 1 0 5:38 PM LIFE SCIENCES TEACHER DERMATOPATHOLOGY LABORATORY Embedded Images 0 5:38 PM LIFE SCIENCES TEACHER DERMATOPATHOLOGY LABORATORY Pathology/Cytolog y TISSUE SPECIMEN FROM SKIN / Unknown 06/15/2020 06/16/2020 7:55 AM LIFE SCIENCES TEACHER Eva Bar MD LAB - PATHOLOGY/CYTO LOGY ORDERABLES DERMATOPATHOLOGY LABORATORY [facility] - Department of Dermatology [facility] [address] [place] [address], [address] [phone] documented in this encounter Visit Diagnoses Not on filedocumented in this encounter Care Teams Otolaryngology Rep Relationship Specialty Start Date End Date Lance Pringle MD [address] [place] [address] PCP - General Internal Medicine 01/25/16 03/28/21 Peter Sommers DO [address] [place] [address] PCP - General Internal Medicine 03/29/21 [place] [address] [address] Physical Medicine and Rehabilitation 03/29/21 documented as of this encounter
--- OUTSIDE RECORDS SUMMARY | 2024-10-29 14:51 | XMS_ITS | Clinical Summary ---
Author Organization [facility] Address [address] [place] [address] Care Team Providers Care Yard Conductor Name Role Phone Peter Sommers DO Primary Care Provider [phone] Allergies Active Allergy Reactions Criticality Noted Date Comments Codeine Hydrocodone Syncope Reaction: passes out, , Hydrocodone Bitartrate Unknown 11/27/2018 Omeprazole Rash Medium 04/26/2016 Rash Oxycodone-Acetaminophen Nausea And Vomiting Medications omeprazole 20 mg tablet,delayed release (DR/EC) 1 Tablet daily 0 0 4 Active hbkyauuv-xhr-YH- lycopen-lutein (CENTRUM SILVER) 0.4-300-250 mg-mcg-mcg tablet 1 [...] ns:Chronic obstructive pulmonary disease, unspecified COPD type ([facility]) INHALE 2 PUFFS BY MOUTH EVERY 4 [...] hypertension Primary localized osteoarthrosis, lower leg 05/07 Encounters Date Type Department Care Team Description 08/18/2024 2:30 PM HUSBANDRY PERSON Office Visit [facility] Cardiology [address] [facility] [address] [place] [address] Sandor Jones MD Syncope and collapse (Primary Dx) from Last 3 Months Immunizations Immunization Administration Dates Next Due Influenza, Trivalent, Adjuvanted, Intramuscular 05/29/2018 Influenza, Trivalent, Preservative Free, Intramu scular 05/19/2015 Pneumococcal Polysaccharide PPV23 08/19/2014 Surgical History Surgery Date Site/Laterality Comments TOTAL ABDOMINAL HYSTERECTOMY W/ BILATERAL SALPINGOOPHORECTOMY Hysterectomy, total abdominal, BSO Medical History Medical History Date Comments Hx Other Medical osteoarthritis; Comments: [facility] 07/14/2014 - Hypertension Hypertension Gastroesophageal reflux disease GERD Hx Other Medical history diverti culitis; Comments: [facility] 07/14/2014 - Hx Other Medical COPD; Comments: [facility] 07/14/2014 - Hx Other Medical restless leg sy ndrome; Comments: [facility] 07/14/2014 - Hx Other Medical history tobacco use; Comments: [facility] 07/14/2014 - Hx Other Medical bladder suspens ion; Comments: [facility] 07/14/2014 - Hx Other Medical bilateral knee replacement; Comments: [facility] 07/14/2014 - Syncope Family History Medical History Relation Name Comments Heart attack Father Hypertension Mother Family history of hypertension - (Added by TW Conv) Cancer Other Family history of malignant neoplasm - (Added by TW Conv) Relation Name Status Comments Father Mother Other Social History Tobacco Use Types Packs/Day Years [...] on file Legal Sex Female 3:29 AM HUSBANDRY PERSON Gender Identity Not on file Sexual Orientation Not on file Obstetrics History Last Filed Vital Signs Vital Sign Reading Time Taken Comments Blood Pressure 138/62 08/18/2024 2:30 PM HUSBANDRY PERSON Pulse 102 08/18/2024 2:30 PM HUSBANDRY PERSON Temperature 36.7 C (98 F) 12/10/2023 1:49 PM CDT Respiratory Rate 18 12/10/2023 1:49 PM CDT Oxygen Saturation 96% 08/18/2024 2:30 PM HUSBANDRY PERSON Inhaled Oxygen Concentration - - Weight 87.5 kg (192 lb 14.4 oz) 08/18/2024 2:30 PM HUSBANDRY PERSON Height 160 cm (5' 3 ) 08/18/2024 2:30 PM HUSBANDRY PERSON Body Mass Index 34.17 08/18/2024 2:30 PM HUSBANDRY PERSON Plan of Treatment Health Maintenance Due Date Last Done Comments Depression Screening 1940 Fall Risk Assessment 1940 Osteoporosis Screening-Bone Density Scan 1940 DTaP/Tdap/Td Vaccine (1 - Tdap) 12/06/1950 Hepatitis B Screening 12/06/1957 Zoster Vaccine (1 of 2) 12/06/1989 Well Visit 65+ 12/06/2004 Influenza Vaccine (#1) 2024 9, 05/29/2018, 06/13/2017, Additional history exists Pneumococcal vaccine 65+ Completed 015, 08/19/2014, 03/24/2010 Insurance MEDICARE [facility] CHOICE PLUS [place] MEDICARE MEDICARE [facility] CHOICE PLUS Advance Directives For more information, please contact: [phone] Documents on File Type Date Recorded Patient Steel Placer Expl anation ADVANCE DIRECTIVE 04/27/2016 12:00 AM ROBI Alvarez OF PAVING INSPECTOR FINANCIAL/MEDICAL Care Teams Yard Conductor Relationship Specialty Start Date End Date Peter Sommers DO PCP - General Internal Medicine 04/22/19
--- OUTSIDE RECORDS SUMMARY | 2024-10-29 14:51 | XMS_ITS | Encounter Summary ---
Author Organization [facility] Address [address] [place] [address] Care Team Providers Care Aircraft Fuselage Framer Name Role Phone Peter Sommers Primary Care Provider Reason for Visit * Reason Comments Medication Refill Encounter Details Date Type Department Care Team (Late Contact Info) Description 11/17/2017 Refill [facility] Orthopedic Surgery - [facility] [address] [address] Lucho Todd MD [address] [facility] [address] [place] [address] Social History Tobacco Use Types [...] Description 11/25/2024 11:00 AM CDT Office Visit [facility] Orthopedic Surgery at the [facility] Medicine [address] [place] [address] Lucho Todd MD [address] [facility] [address] [place] [address] documented as of this encounter Visit Diagnoses Not on filedocumented in this encounter Care Teams Aircraft Fuselage Framer Relationship Specialty Start Date End Date Peter Sommers DO [address] [facility] [address] [facility] [address] [place] [phone] PCP - General Internal Medicine 02/25/20 documented as of this encounter
--- OUTSIDE RECORDS SUMMARY | 2024-10-29 14:51 | XMS_ITS | Encounter Summary ---
Author Organization [facility] Address [address] [facility] [place] [address] Care Team Providers Care Innovations Paraprofessional Name Role Phone Lance Pringle MD Primary Care Provider [phone] Peter Sommers DO Primary Care Provider [phone] Juan Jose Anne MD Unavailable [phone] Encounter Details Date Type Department Care Team (Late st Contact Info) Description 04/02/2020 Lab Requisition [facility] [address] [facility] [place] [address] Eva Bar MD [address] [facility] [address] [place] [address] Social History Tobacco Use Types Packs/Day Years [...] Priority Date/Time Associated Diagnosis Comments DERMATOPATHOLOGY Routine 04/01/2020 12:0 0 AM CDT documented in this encounter Results * DERMATOPATHOLOGY (04/01/2020 12:00 AM CDT) Case Report Dermatopathology Report Case: [id number] Authorizing Provider: Eva Bar MD Collected: 04/01/2020 12:00 AM Ordering Location: [facility] Lab Received: 04/02/2020 06:24 AM Pathologist: Romain Hutton MD Specimen: Skin, right neck 0 2:43 PM CDT DERMATOPATHOLOGY LABORATORY Final Diagnosis Specimen A. SKIN, right neck: SQUAMOUS CELL CARCINOMA, WELL DIFFERENTIATED (C44.42) 0 2:43 PM CDT DERMATOPATHOLOGY LABORATORY Clinical History SCC vs SK vs VV, irritated. 0 2:43 PM CDT DERMATOPATHOLOGY LABORATORY Gross Description Specimen A: Received is one formalin filled container labeled with the patient's name and designated right neck. The specimen consists of a shave measuring [id number]. Jar 0. 0 2:43 PM CDT DERMATOPATHOLOGY LABORATORY Microscopic Description Specimen A. SKIN, right neck: Arising in the epidermis and extending into the dermis there are irregularly shaped aggregates of keratinocytes showing evidence of premature cornification. 0 2:43 PM CDT DERMATOPATHOLOGY LABORATORY Disclaimer An external and internal positive and negative controls are appropriate for the histochemical, immunohistochemical and immunofluorescence stain(s) in this case (if any), except where stated explicitly. The performance characteristics of the stain(s) cited in this report were developed and its performance characteristic determined by the Dermatopathology Laboratory at [facility], directed by Dr. Devin Schmid. These tests need not be, and therefore are not, approved by the [place] Food and Drug Administration. The tests are used for clinical purposes. Billing Codes Specimen Charges Stain Charges 96033 1 0 2:43 PM CDT DERMATOPATHOLOGY LABORATORY Embedded Images 0 2:43 PM CDT DERMATOPATHOLOGY LABORATORY Pathology/Cytolog y TISSUE SPECIMEN FROM SKIN / Unknown 04/01/2020 04/02/2020 6:24 AM CDT Eva Bar MD LAB - PATHOLOGY/CYTO LOGY ORDERABLES DERMATOPATHOLOGY LABORATORY [facility] - Department of Dermatology [address], [address] [phone] documented in this encounter Visit Diagnoses Not on filedocumented in this encounter Care Teams Innovations Paraprofessional Relationship Specialty Start Date End Date Lance Pringle MD [address] [place] [address] PCP - General Internal Medicine 01/25/16 03/28/21 Peter Sommers DO [address] [place] [address] PCP - General Internal Medicine 03/29/21 [place] [address] [address] Physical Medicine and Rehabilitation 03/29/21 documented as of this encounter
--- OUTSIDE RECORDS SUMMARY | 2024-10-29 14:51 | XMS_ITS | Clinical Summary ---
Author Organization [facility] Address [address] [facility] [place] [address] Care Team Providers Care Choir Singer Name Role Phone Peter Sommers Primary Care Provider [phone] Juan Jose Anne MD Unavailable [phone] Source Comments [facility],non-owned Affiliates and Associated Physician Practices is amultiple site organization consisting of ambulatory clinics and hospital sitesin [place], [place], [place] and [place]. This disclosure is being madepursuant to the Care Everywhere program and may not contain all information available regarding this patient. Last updated 18.[facility] Allergies Active Allergy Reactions Criticality Noted Date Comments Codeine 06/19/2013 Other reaction(s): Unknown Hydrocodone 01/25/2016 Omeprazole 06/19/2013 Oxycodone-Acetaminophen Nausea and/or Vomiting 03/22/2016 Medications * Be aware that medications may not be up to date on this document. Alwaysverify current medications with the patient. Medication Sig Dispensed Refills Start Date End Date Status lisinopril (PRINIVIL; ZESTRIL) 2.5 MG tablet Take 2.5 mg by mouth once daily Active docusate sodium (COLACE) 50 MG capsule 50 mg 2 times daily Active omeprazole (PRILOSEC) 20 MG capsule 07/12/2016 Active Probiotic Product (PROBIOTIC DAILY PO) Acti ve acetaminophen CR (TYLENOL ARTHRITIS PAIN) 650 MG tablet Take 650 mg by mouth Active fluticasone propionate (FLONASE) 50 MCG/ACT nasal spray SHAKE LIQUID AND USE 1 SPRAY IN EACH NOSTRIL TWICE DAILY 02/20/2021 Active albuterol HFA (PROVENTIL;VENTOLIN;P ROAIR) 108 (90 Base) MCG/ACT inhaler INHALE 2 PUFFS BY MOUTH EVERY 4 HOURS NEEDED FOR WHEEZING 12/06/2020 Active Blakdpv-Tcchzjkhwj-Jw tamin D (CITRACAL +D3 PO) Active Glucosamine HCl (GLUCOSAMINE PO) Active MAGNESIUM PO Active VITAMIN D PO Active ALPRAZolam (XANAX) 0.25 MG tablet Take first tablet 30 minutes before MRI scan and take second tablet on arrival. 2 tablet 03/29/2021 Active amLODIPine (NORVASC) 2.5 MG tablet Take 2.5 mg by mouth once daily 12/06/2020 Active meloxicam (MOBIC) 15 MG tablet 04/25/2021 Active cefprozil (CEFZIL) 500 MG tablet Take 500 mg by mouth once daily 04/26/2021 Active Active Problems Problem Noted Date Diagnosed Date Surgical wound dehiscence 04/17/2016 Blood loss 04/04/2016 Immunizations Name Administration Dates Next Due INFLUENZA VACCINE, HIGH-DOSE , QUADR. (FLUZONE HIGH-DOSE QUADRIVALENT; 65Y+), 0.7 ML (HD-IIV4) 05/21/2020 INFLUENZA VACCINE, QUADR. (F LUZONE; FLULAVAL; FLUARIX; AFLURIA QUADRIVALENT; 6MO+), 0.5 ML (IIV4) 04/18/2016 Family History Medical History Relation Name Comments Cancer Brother 3 Arthritis - Rheumatoid Father Arthritis - Rheumatoid Mother Cancer Sister 3 Relation Name Status Comments Brother 1 Alive Brother 2 Brother 3 Father Mother Sister 1 Sister 2 Sister 3 Social History Tobacco Use Types Packs/Day Years [...] Sign Reading Time Taken Comments Blood Pressure 181/113 03/29/2021 1:56 PM CDT Pulse 74 03/29/2021 1:56 PM CDT Temperature 36.7 C (98 F) 06/01/2016 11:57 AM CDT Respiratory Rate 20 06/01/2016 11:57 AM CDT Oxygen Saturation 94% 06/01/2016 11:57 AM CDT Inhaled Oxygen Concentration 21% 04/21/2016 3 :07 PM CDT Weight 83 kg (183 lb) 03/29/2021 1:56 PM CDT Height 160 cm (5' 3 ) 03/29/2021 1:56 PM CDT Body Mass Index 32.42 03/29/2021 1:56 PM CDT Plan of Treatment Health Maintenance Due Date Last Done Comments BONE DENSITY TESTING 1940 MEDICARE AWV 12 MONTHS 1940 DTAP/TDAP/TD VACCINES (1 - Tdap) 12/06/1958 PNEUMOCOCCAL VACCINE 50+ (1 of 1 - PCV) 12/06/1989 ZOSTER VACCINE (1 of 2) 12/06/1989 Respiratory Syncytial Virus (RSV) Vaccine Pt: or over 60 yrs (1 - 1-dose 75+ series) 12/06/2014 COVID-19 VACCINE ( - 2023- season) 2024 INFLUENZA VACCINE (#1) 2024 0, 05/29/2018, 04/18/2016, Additional history exists DEPRESSION SCREENING 08/06/2024 HEPATITIS B VACCINE Aged Out No longe r eligible based on patient's age to complete this topic HIB VACCINE Aged Out No longer eligi ble based on patient's age to complete this topic HPV VACCINE Aged Out No longer eligi ble based on patient's age to complete this topic MENINGOCOCCAL (Group B) VACCINE SHARED DECISION-MAKING Aged Out No longer eligible based on patient's age to complete this topic MENINGOCOCCAL GROUPS A/C/Y/W VACCINE Aged Out No longer eligible based on patient's age to complete this topic Medical Devices Implanted Type Area Right Of Way Clearer Device Identifier Shelf Expiration Date Model / Serial / Lot Edwina David Bone Dbm Progenix 10cc Implanted:Qty: 1 on 04/04/2016 by Anuel Zabala MD at [facility] Spine Lumbar Medtronic [employer]or [employer] 10/10/2017 [id number] / / [id number] Corelink, Crosslink 16mm Implanted:Qty: 1 on 04/04/2016 by Anuel Zabala MD at [facility] Spine Lumbar [id number] / / Corelink, 150mm Wilber Straight Implanted:Qty: 2 on 04/04/2016 by Anuel Zabala MD at [facility] Spine Lumbar [id number] / / Corelink, Wilber 18mm Implanted:Qty: 1 on 04/04/2016 by Anuel Zabala MD at [facility] Spine Lumbar [id number] / / Mini Connector, Corelink Implanted:Qty: 1 on 04/04/2016 by Anuel Zabala MD at [facility] Spine Lumbar [id number] / / Corelink, Extended Connector Implanted:Qty: 1 on 04/04/2016 by Anuel Zabala MD at [facility] Spine Lumbar [id number] / / Putty Grft Bone Dbm Progenix 10cc Implanted:Qty: 1 on 04/04/2016 by Anuel Zabala MD at [facility] Spine Lumbar Medtronic Sof[employer]or [employer] 10/10/2017 [id number] / / [id number] Bone Crush Canc 30cc Implanted:Qty: 1 on 04/04/2016 by Anuel Zabala MD at [facility] Spine Lumbar [employer]ource 12/11/2020 [id number] / / Corelink, 6.5mm X 45mm Srew Implanted:Qty: 5 on 04/04/2016 by Anuel Zabala MD at [facility] Spine Lumbar [id number] / / Corelink, 6.5mm X 50mm Screw Implanted:Qty: 5 on 04/04/2016 by Anuel Zabala MD at [facility] Spine Lumbar [id number] / / Corelink, Locking Nuts Implanted:Qty: 10 on 04/04/2016 by Anuel Zabala MD at [facility] Spine Lumbar [id number] / / Corelink, Connector Implanted:Qty: 8 on 04/04/2016 by Anuel Zabala MD at [facility] Spine Lumbar [id number] / / Corelink, 9mm Cage Implanted:Qty: 1 on 04/04/2016 by Anuel Zabala MD at [facility] Spine Lumbar [id number] / / Corelink, Cage 7mm Implanted:Qty: 1 on 04/04/2016 by Anuel Zabala MD at [facility] Spine Lumbar [id number] / / Advance Directives Documents on File Type Date Recorded Patient Immersion Metal Cleaner Expl anation Adv Directive/Living Will/POA 04/08/2016 10:05 PM * Full Code (Latest Code Status on File) Date Activated Date Inactivated Comments 05/31/2016 3:06 PM 06/01/2016 3:05 PM * Full Code Date Activated Date Inactivated Comments 04/17/2016 2:56 PM 04/26/2016 1:29 PM * Full Code Date Activated Date Inactivated Comments 04/16/2016 8:32 PM 04/17/2016 2:56 PM * Full Code Date Activated Date Inactivated Comments 04/07/2016 1:54 PM 04/16/2016 4:46 PM * Full Code Date Activated Date Inactivated Comments 04/04/2016 3:14 PM 04/07/2016 1:54 PM Care Teams Choir Singer Relationship Specialty Start Date End Date Peter Sommers DO [address] [place] [address] PCP - General Internal Medicine 03/29/21 [place] [address] [place] [address] Physical Medicine and Rehabilitation 03/29/21
--- OUTSIDE RECORDS SUMMARY | 2024-10-29 14:51 | XMS_ITS | Encounter Summary ---
Author Organization [facility] Health Address [facility] [facility] [place] [address] Care Team Providers Care Computational Scientist Name Role Phone Lance Pringle MD Primary Care Provider [phone] Peter Sommers DO Primary Care Provider [phone] uJan Jose Anne MD Unavailable [phone] Encounter Details Date Type Department Care Team (Late st Contact Info) Description 01/30/2017 [facility] DEPT Unknown, [...] on filedocumented in this encounter Care Teams Computational Scientist Relationship Specialty Start Date End Date Lance Pringle MD [address] [place] [address] PCP - General Internal Medicine 01/25/16 03/28/21 Peter Sommers DO [address] [place] [address] PCP - General Internal Medicine 03/29/21 [place] [address] [address] Physical Medicine and Rehabilitation 03/29/21 documented as of this encounter
--- OUTSIDE RECORDS SUMMARY | 2024-10-29 14:52 | XMS_ITS | Clinical Summary ---
Author Organization [facility] Address [address] [place] [address] Care Team Providers Care Completion Engineer Name Role Phone Reji Castellano MD Primary Care Provider [phone] Social History Tobacco Use Types Packs/Day Years Used Date Smoking Tobacco: Never Assessed Comments Unknown Sex and Gender Information Value Date Recorded Sex Assigned at Not on file Legal Sex Female 6:32 PM CDT Gender Identity Not on file Sexual Orientation Not on file Plan of Treatment Upcoming Encounters Date Type Department Care Team (Late st Contact Info) Description 07/15/2025 1:30 PM NEUROLOGICAL SURGEON Office Visit [facility] Audiology [address] [place] [address] KenOrlyil, AUD [address] [place] [address] Health Maintenance Due Date Last Done Comments DTaP, Tdap and Td Vaccines (1 - Tdap) 12/06/1958 Zoster Vaccines (1 of 2) 12/06/1989 Annual Medicare Wellness Visit 12/06/2004 Dexa Scan (General) 12/06/2004 RSV Immunization or 60+ Years (1 - 1-dose 75+ series) 12/06/2014 COVID-19 Vaccine ( season) 2024 Influenza Adult (#1) 2024 05/05/2019, 05/29/2018, 05/28/2018, Additional history exists Pneumococcal Vaccine: 65+ Years Completed 06/10/2015, 08/19/2014, 03/24/2010 Meningococcal B Vaccine Aged Out No l onger eligible based on patient's age to complete this topic Meningococcal Vaccine Aged Out No sumeet denton eligible based on patient's age to complete this topic RSV Immunizations Under 20 Months Aged Out No longer eligible based on patient's age to complete this topic Insurance [facility] AETNA Advance Directives Documents on File Type Date Recorded Patient Manager Multicultural Expl anation Legal Documents 12/21/2020 10:08 AM COMMERCIAL CREDIT OFFICER S LICENSE Care Teams Completion Engineer Relationship Specialty Start Date End Date Reji Castellano MD [address] [place] [address] PCP - General FAMILY PRACTICE 06/27/24
--- OUTSIDE RECORDS SUMMARY | 2024-10-29 14:52 | XMS_ITS | Encounter Summary ---
Author Organization [facility] Health Address [facility] [facility] [place] [address] Care Team Providers Care Linting Machine Operator Name Role Phone Lance Pringle MD Primary Care Provider [phone] Peter Sommers DO Primary Care Provider [phone] Juan Jose Anne MD Unavailable [phone] Encounter Details Date Type Department Care Team (Late st Contact Info) Description 09/15/2016 [facility] Outpatient Visit EXTERNAL NON-[facility] DEPT Unknown, Provider [...] on filedocumented in this encounter Care Teams Linting Machine Operator Relationship Specialty Start Date End Date Lance Pringle MD [address] [place] [address] PCP - General Internal Medicine 01/25/16 03/28/21 Peter Sommers DO [address] [place] [address] PCP - General Internal Medicine 03/29/21 [place] [address] [address] Physical Medicine and Rehabilitation 03/29/21 documented as of this encounter
--- OUTSIDE RECORDS SUMMARY | 2024-10-29 14:52 | XMS_ITS | Encounter Summary ---
Author Organization [facility] Health Address [facility] [facility] [place] [address] Care Team Providers Care Patient Case Manager Name Role Phone Lance Pringle MD Primary Care Provider [phone] Peter Sommers DO Primary Care Provider [phone] Juan Jose Anne MD Unavailable [phone] Encounter Details Date Type Department Care Team (Late st Contact Info) Description 08/21/2016 [facility]TERNAL [facility] DEPT Unknown, [...] on filedocumented in this encounter Care Teams Patient Case Manager Relationship Specialty Start Date End Date Lance Pringle MD [address] [place] [address] PCP - General Internal Medicine 01/25/16 03/28/21 Peter Sommers DO [address] [place] [address] PCP - General Internal Medicine 03/29/21 [place] [address] [address] Physical Medicine and Rehabilitation 03/29/21 documented as of this encounter
--- OUTSIDE RECORDS SUMMARY | 2024-10-29 14:52 | XMS_ITS | Encounter Summary ---
Author Organization [facility] Address [address] [place] [address] Care Team Providers Care Solutions Analyst Name Role Phone Peter Sommers Primary Care Provider [phone] Reason for Visit * Reason Comments Medication Refill Encounter Details Date Type Department Care Team (Late Contact Info) Description 04/27/2018 Refill [facility] Orthopedic Surgery - [facility] [address] [address] Lucho Todd MD [address] [facility] [address] [place] [address] Social History Tobacco Use Types [...] Office Visit [facility] Orthopedic Surgery at the [facility] Medicine [address] [place] [address] Lucho Todd MD [address] [facility] [address] [place] [address] documented as of this encounter Visit Diagnoses Not on filedocumented in this encounter Care Teams Solutions Analyst Relationship Specialty Start Date End Date Peter Sommers DO [address] [facility] [address] [facility] [address] [place] [address] PCP - General Internal Medicine 02/25/20 documented as of this encounter
--- OUTSIDE RECORDS SUMMARY | 2024-10-29 14:52 | XMS_ITS | Encounter Summary ---
Author Organization [facility] Health Address [address] [place] [address] Care Team Providers Care Valve Repairer Name Role Phone Lance Pringle MD Primary Care Provider [phone] Peter Sommers DO Primary Care Provider [phone] Juan Jose Anne MD Unavailable [phone] Encounter Details Date Type Department Care Team (Late st Contact Info) Description 04/04/2016 [facility] Outpatient Visit [address] [address] Anuel Zabala MD [address] [place] [address] Social History Tobacco Use Types Packs/Day Years [...] or have serious hearing difficult y? No 04/04/2016 Is person blind or have serious difficulty seein g? No 04/04/2016 Does person have serious dif ficulty walking/climbing stairs? No 04/04/2016 Does person have difficulty dressing/bathing? No 04/04/2016 Does person have difficulty doing errands alone? No 04/04/2016 Cognitive Status Response Date of Assessm ent Does person have difficulty concentrating/remembering/making decisions? No 04/04/2016 documented as of this encounter Plan of Treatment Not on file documented as of this encounter Visit Diagnoses Not on filedocumented in this encounter Care Teams Valve Repairer Relationship Specialty Start Date End Date Lance Pringle MD [address] [place] [address] PCP - General Internal Medicine 01/25/16 03/28/21 Peter Sommers DO [address] [place] [address] PCP - General Internal Medicine 03/29/21 [place] [address] [address] Physical Medicine and Rehabilitation 03/29/21 documented as of this encounter
--- OUTSIDE RECORDS SUMMARY | 2024-10-29 14:52 | XMS_ITS | Clinical Summary ---
Author Organization [facility] Address [address] [place] [address] Phone Care Team Providers Care Outdoor Adventure Leader Name Role Phone Peter Sommers Primary Care Provider [phone] Allergies Active Allergy Reactions Criticality Noted Date Comments Codeine Unknown 06/19/2013 Other reaction(s): Unknown Hydrocodone Other (See Comments) 05/13/2014 . Omeprazole Unknown 06/19/2013 Oxycodone-Acetaminophen Nausea and Vomiting Low Medications fluticasone (FLONASE) 50 mcg/spray [place], Suspension Administer 2 Sprays in each nostril daily. Active docusate sodium (COLACE) 50 mg capsule Take 50 mg by mouth 2 times daily. Active Lactobac no.41/Bifidobact no.7 (PROBIOTIC-10 ORAL) Take by mouth. Activ e lisinopril (PRINIVIL) 10 mg tablet Take 10 mg by mouth daily. Active umeclidinium-vilan terol (ANORO ELLIPTA) 62.5-25 mcg/actuation Disk with Device Take by inhalation. Active multivitamin with minerals-lycopene- lutein (CENTRUM SILVER) 0.4-300-250 mg-mcg-mcg Tablet per tablet Take 1 Tablet by mouth daily. Active cephALEXin (KEFLEX) 500 mg capsule Take 500 mg by mouth 4 times daily. Active omeprazole (PriLOSEC) 20 mg Capsule, Delayed Release(E.C.) Take 20 mg by mouth daily. Active albuterol HFA 90 mcg inhaler Take 2 Puffs by inhalation every 6 hours as needed for Shortness of Breath. Active Carboxymethylcellu lose-Glycern (REFRESH OPTIVE) 0.5-0.9 % solution 2 Drops 2 times daily as needed. Active zoster vaccine recombinant, adjuvanted, RZV, (SHINGRIX, PF,) 50 mcg/0.5 mL Suspension for Reconstitution Inject by intramuscular injection one time only. Active [place] Jxt-Nze-S6-Zn-Room Server- Man-Bor (CITRACAL PLUS MAGNESIUM) 250-40-125 mg-mg-unit Tablet Take by mouth. Active lidocaine HCl (ASPERCREME, LIDOCAINE,) 4 % Cream Apply to affected area. Active acetaminophen (TYLENOL ARTHRITIS) 650 mg Extended Release tablet Take 650 mg by mouth every 6 hours as needed. Active amLODIPine (NORVASC) 2.5 mg tablet Take 2.5 mg by mouth daily. 12/07/19 21 Active diazePAM (VALIUM) 2 mg tablet Take 2 mg by mouth every 12 hours as needed. Active meloxicam (MOBIC) 15 mg tabletIndications: Impingement syndrome of left shoulder Take 1 Tablet (15 mg) by mouth daily. 90 Tablet 2 03/31/20 24 Active Active Problems Problem Noted Date Diagnosed Date Spinal stenosis at L4-L5 level 12/08/2015 Trochanteric bursitis of both hips 12/08/2015 Primary localized osteoarthrosis, lower leg 05/07 Encounters Date Type Department Care Team Description 09/24/2024 External Device Data STL ABSTRACTION Provider, Abstract 09/03/2024 External Device Data STL ABSTRACTION Provider, Abstract 08/28/2024 External Device Data STL ABSTRACTION Provider, Abstract from Last 3 Months Immunizations Immunization Administration Dates Next Due (PREVNAR 13)(6 WKS UP) PNEUM OCOCCAL CONJUGATE (PCV13) 0.5 ML, IM 03/24/2010 Influenza Seasonal Unspecified Formulation IM Social History Tobacco Use Types Packs/Day Years Used Date Smoking Tobacco: Former Tobacco Cessation:Counseling Given: Not Answered Alcohol Use Standard Drinks/Week Comments Yes 0 (1 standard drink = 0.6 oz pur e alcohol) rare Comments No Sex and Gender Information Value Date Recorded Sex Assigned at Not on file Legal Sex Female 2:15 PM CDT Gender Identity Not on file Sexual Orientation Not on file Last Filed Vital Signs Vital Sign Reading Time Taken Comments Blood Pressure 130/90 02/25/2020 1:48 PM CDT Pulse 74 02/25/2020 1:48 PM CDT Temperature 36.8 C (98.3 F) 05/28/2014 6:50 AM CDT Respiratory Rate 16 05/28/2014 9:20 AM CDT Oxygen Saturation 93% 05/28/2014 6:50 AM CDT Inhaled Oxygen Concentration - - Weight 90.3 kg (199 lb) 07/25/2024 12:48 PM SPEED OPERATOR Height 160 cm (5' 3 ) 07/25/2024 12:48 PM SPEED OPERATOR Body Mass Index 35.25 07/25/2024 12:48 PM SPEED OPERATOR Plan of Treatment Upcoming Encounters Date Type Department Care Team (Late st Contact Info) Description 11/25/2024 11:00 AM CDT Office Visit [facility] Orthopedic Surgery at the [facility] Medicine [address] [place] [address] Lucho Todd MD [address] [facility] [address] [place] [address] Health Maintenance Due Date Last Done Comments DTAP/TDAP/TD VACCINES (1 - Tdap) 12/06/1958 ZOSTER VACCINE (1 of 2) 12/06/1989 OSTEOPOROSIS SCREENING 12/06/2004 RSV VACCINE (60+ or ) (1 - 1-dose 75+ series) 12/06/2014 INFLUENZA VACCINE (#1) 2024 0, 05/29/2018, 04/18/2016, Additional history exists PNEUMOCOCCAL VACCINE 50+ YEARS Completed 08/19/2014 , 03/24/2010 COLORECTAL SCREENING Discontinued 12/18/2014 Colorectal Cancer Screening Discontinued FIT-DNA Q 3 years Discontinued FIT/FOBT Q 1 year Discontinued Flex Sig/CT Colonography Q 5 years Discontinued Medical Devices Implanted Type Area Floorman Device Identifier Shelf Expiration Date Model / Serial / Lot Cement [place] G-Hv 40g [id number] - [id number] Implanted:Qty: 1 on 05/25/2014 at [facility] Cement Right: Knee [employer] 03/05/2016 [id number] / / [id number] Comp Tib Cocr Finned 75mm [id number] - [id number] Implanted:Qty: 1 on 05/25/2014 by Lucho Todd MD at [facility] Knee Right: Knee [employer] 02/03/2024 [id number] / / [id number] Description:PROCESSED ON REQ UISITION,[id number]. Comp Fem Vngrd Cr Intrlk Rt 60mm [id number] - [id number] Implanted:Qty: 1 on 05/25/2014 by Lucho Todd MD at [facility] Knee Right: Knee [employer] 05/05/2022 [id number] / / [id number] Brng Epoly As Tib [id number] Vangrd [id number] - [id number] Implanted:Qty: 1 on 05/25/2014 by Lucho Todd MD at [facility] Knee Right: Knee [employer] 10/03/2016 [id number] / / [id number] Insurance AETNA PPO MCR Advance Directives For more information, please contact: [phone] * Full Code (Latest Code Status on File) Date Activated Date Inactivated Comments 05/25/2014 11:24 AM 05/28/2014 1:37 PM * Full Code Date Activated Date Inactivated Comments 05/25/2014 5:36 AM 05/25/2014 11:24 AM Care Teams Outdoor Adventure Leader Relationship Specialty Start Date End Date Peter Sommers DO [address] [facility] [address] [place] [address] PCP - General Internal Medicine 02/25/20
--- OUTSIDE RECORDS SUMMARY | 2024-10-29 14:52 | XMS_ITS | Encounter Summary ---
Author Organization [facility] Health Address [facility] [facility] [place] [address] Care Team Providers Care Display Manager Name Role Phone Lance Pringle MD Primary Care Provider [phone] Peter Sommers DO Primary Care Provider [phone] Juan Jose Anne MD Unavailable [phone] Encounter Details Date Type Department Care Team (Late st Contact Info) Description 10/09/2016 [facility] DEPT Unknown, [...] on filedocumented in this encounter Care Teams Display Manager Relationship Specialty Start Date End Date Lance Pringle MD [address] [place] [address] PCP - General Internal Medicine 01/25/16 03/28/21 Peter Sommers DO [address] [place] [address] PCP - General Internal Medicine 03/29/21 [place] [address] [address] Physical Medicine and Rehabilitation 03/29/21 documented as of this encounter
--- OUTSIDE RECORDS SUMMARY | 2024-10-29 14:52 | XMS_ITS | Encounter Summary ---
Author Organization [facility] Address [address] [place] [address] Care Team Providers Care Coffee Roaster Helper Name Role Phone Peter Sommers Primary Care Provider [phone] Reason for Visit * Reason Comments Medication Refill Encounter Details Date Type Department Care Team (Late Contact Info) Description 01/19/[address] [facility] Orthopedic Surgery - [facility] [address] [address] Lucho Todd MD [address] [facility] [address] [place] [address] Social History Tobacco Use Types [...] 11/25/2024 11:00 AM CDT Office Visit [facility] Orthopedic Surgery at the [facility] Medicine [address] [place] [address] Lucho Todd MD [address] [facility] [address] [place] [address] documented as of this encounter Visit Diagnoses Not on filedocumented in this encounter Care Teams Coffee Roaster Helper Relationship Specialty Start Date End Date Peter Sommers DO [address] [facility] [address] [facility] [address] [place] [phone] PCP - General Internal Medicine 02/25/20 documented as of this encounter
[2024-10-29 16:29] LABS: Thyroid Stimulating Hormone 0.881 uIU/mL (0.465-4.680)
[2024-10-30 18:48] LABS: Red Blood Cell Folate 591 ng/mL RBC (>280)
[2024-10-31 13:18] LABS: Homocysteine 14.2 umol/L (<10.4)
[2024-11-02 02:09] LABS: Methylmalonic Acid 129 nmol/L (85-423)
[2024-11-02 13:38] LABS: Vitamin B6 75.4 ng/mL (2.1-21.7)
[2024-11-02 14:33] LABS: Immunofixation, Serum Normal pattern.
[2024-11-03 11:03] LABS: Vitamin B1 22 nmol/L (8-30)
[2024-11-03 14:33] LABS: Vitamin D 1,25 (OH)2 Total 40 pg/mL (18-72); Vitamin D2 1,25 (OH)2 <8 pg/mL; Vitamin D3 1,25 (OH)2 40 pg/mL
== END 2024-10-29 13:43 | disposition home or self-care (01) ==
PROVIDERS: PCP Nurse Practitioner Family; Visit Provider Psychiatry & Neurology Neurology
DX: G47.62 Sleep related leg cramps (principal); R55 Syncope and collapse; G62.9 Polyneuropathy, unspecified; M21.371 Foot drop, right foot; M54.16 Radiculopathy, lumbar region; J44.9 Chronic obstructive pulmonary disease, unspecified; E55.9 Vitamin D deficiency, unspecified; M54.9 Dorsalgia, unspecified; G89.29 Other chronic pain; Z98.890 Other specified postprocedural states
CPT/HCPCS: 36415; 82607; 82652; 82747; 83090; 83921; 84207; 84425; 84443; 86038; 86039; 86334

== ENCOUNTER 2024-11-06 09:51 | Outpatient (CLI) | payer MEDICARE, SELFPAY ==
--- OUTSIDE RECORDS SUMMARY | 2024-11-06 10:30 | XMS_ITS | Clinical Summary ---
Author Organization [facility] [place] Address [address] [place] [address] Care Team Providers Care Residential Care Officer Name Role Phone Peter Sommers DO Primary Care Provider Allergies Active Allergy Reactions Criticality Noted Date Comments Codeine Hydrocodone Syncope Reaction: passes out, , Hydrocodone Bitartrate Unknown 11/27/2018 Omeprazole Rash Medium 04/26/2016 Rash Oxycodone-Acetaminophen Nausea And Vomiting Medications omeprazole 20 mg tablet,delayed release (DR/EC) 1 Tablet daily 0 0 4 Active oeqrzaqc-kwr-CG- lycopen-lutein (CENTRUM SILVER) 0.4-300-250 mg-mcg-mcg tablet 1 [...] ns:Chronic obstructive pulmonary disease, unspecified COPD type ([facility]) INHALE 2 PUFFS BY [...] Department Care Team Description 08/18/2024 2:30 PM PROFESSOR OF LEGAL STUDIES Office Visit [facility] Cardiology [address] [facility] [address] [place] [address] Sandor Jones MD Syncope and collapse (Primary Dx) from Last 3 Months Immunizations Immunization Administration Dates Next Due Influenza, Trivalent, Adjuvanted, Intramuscular 05/29/2018 Influenza, Trivalent, Preservative Free, Intramu scular 05/19/2015 Pneumococcal Polysaccharide PPV23 08/19/2014 Surgical History Surgery Date Site/Laterality Comments TOTAL ABDOMINAL HYSTERECTOMY W/ BILATERAL SALPINGOOPHORECTOMY Hysterectomy, total abdominal, BSO Medical History Medical History Date Comments Hx Other Medical osteoarthritis; Comments: [facility] 07/14/2014 - Hypertension Hypertension Gastroesophageal reflux disease GERD Hx Other Medical history diverti culitis; Comments: [facility] 07/14/2014 - Hx Other Medical COPD; Comments: [facility] 07/14/2014 - Hx Other Medical restless leg sy ndrome; Comments: [facility] 07/14/2014 - Hx Other Medical history tobacco use; Comments: [facility] 07/14/2014 - Hx Other Medical bladder suspens ion; Comments: [facility] 07/14/2014 - Hx Other Medical bilateral knee replacement; Comments: [facility] 07/14/2014 - Syncope Family History Medical History [...] on file Legal Sex Female 3:29 AM PROFESSOR OF LEGAL STUDIES Gender Identity Not on file Sexual Orientation Not on file Obstetrics History Last Filed Vital Signs Vital Sign Reading Time Taken Comments Blood Pressure 138/62 08/18/2024 2:30 PM PROFESSOR OF LEGAL STUDIES Pulse 102 08/18/2024 2:30 PM PROFESSOR OF LEGAL STUDIES Temperature 36.7 C (98 F) 12/10/2023 1:49 PM CDT Respiratory Rate 18 12/10/2023 1:49 PM CDT Oxygen Saturation 96% 08/18/2024 2:30 PM PROFESSOR OF LEGAL STUDIES Inhaled Oxygen Concentration - - Weight 87.5 kg (192 lb 14.4 oz) 08/18/2024 2:30 PM PROFESSOR OF LEGAL STUDIES Height 160 cm (5' 3 ) 08/18/2024 2:30 PM PROFESSOR OF LEGAL STUDIES Body Mass Index 34.17 08/18/2024 2:30 PM PROFESSOR OF LEGAL STUDIES Plan of Treatment Health Maintenance Due Date Last Done Comments Depression Screening 1940 Fall Risk Assessment 1940 Osteoporosis Screening-Bone Density Scan 1940 DTaP/Tdap/Td Vaccine (1 - Tdap) 12/06/1950 Hepatitis B Screening 12/06/1957 Zoster Vaccine (1 of 2) 12/06/1989 Well Visit 65+ 12/06/2004 Influenza Vaccine (#1) 2024 9, 05/29/2018, 06/13/2017, Additional history exists Pneumococcal vaccine 65+ Completed 015, 08/19/2014, 03/24/2010 Insurance MEDICARE [facility] CHOICE PLUS [place] MEDICARE MEDICARE [facility] CHOICE PLUS Advance Directives For more information, please contact: [phone] Documents on File Type Date Recorded Patient Animal Feeder Expl anation ADVANCE DIRECTIVE 04/27/2016 12:00 AM ROBI Alvarez OF [employer]MED[employer] Care Teams Residential Care Officer Relationship Specialty Start Date End Date Peter Sommers DO PCP - General Internal Medicine 04/22/19
--- OUTSIDE RECORDS SUMMARY | 2024-11-06 10:30 | XMS_ITS | Encounter Summary ---
Author Organization [facility] Health Address [facility] [facility] [place] [address] Care Team Providers Care Computer Operations Manager Name Role Phone Lance Pringle MD Primary Care Provider [phone] Peter Sommers DO Primary Care Provider [phone] Juan Jose Anne MD Unavailable [phone] Encounter Details Date Type Department Care Team [...] on filedocumented in this encounter Care Teams Computer Operations Manager Relationship Specialty Start Date End Date Lance Pringle MD [address] [place] [address] PCP - General Internal Medicine 01/25/16 03/28/21 Peter Sommers DO [address] [place] [address] PCP - General Internal Medicine 03/29/21 [place] [address] [address] Physical Medicine and Rehabilitation 03/29/21 documented as of this encounter
--- OUTSIDE RECORDS SUMMARY | 2024-11-06 10:30 | XMS_ITS | Clinical Summary ---
Author Organization [facility] Address [address] [place] [address] Care Team Providers Care Side Trimmer Name Role Phone Reji Castellano MD Primary Care Provider [phone] Social History Tobacco Use Types Packs/Day Years Used Date Smoking Tobacco: Never Assessed Comments Unknown Sex and Gender Information Value Date Recorded Sex Assigned at Not on file Legal Sex Female 6:32 PM CDT Gender Identity Not on file Sexual Orientation Not on file Plan of Treatment Upcoming Encounters Date Type Department Care Team (Late st Contact Info) Description 07/15/2025 1:30 PM VALIDATION ANALYST Office Visit [facility] Audiology [address] [place] [address] KenOrlyil, AUD [address] [place] [address] Health Maintenance Due Date Last Done Comments [...] patient's age to complete this topic Insurance [facility] AETNA Advance Directives Documents on File Type Date Recorded Patient Supplier Manager Expl anation Legal Documents 12/21/2020 10:08 AM ELECTRIC REPAIR SUPERVISOR S LICENSE Care Teams Side Trimmer Relationship Specialty Start Date End Date Reji Castellano MD [address] [place] [address] PCP - General FAMILY PRACTICE 06/27/24
--- OUTSIDE RECORDS SUMMARY | 2024-11-06 10:30 | XMS_ITS | Continuity of Care Document ---
Author Organization [facility] Address [address] [place] [address] Phone Care Team Providers Care Gamma Facilities Operator Name Role Phone Anuel Maradiaga MD Unavailable Unavailable Allergies, Adverse Reactions, Alerts Substance Reaction Status Criticality omeprazole Active No Information codeine Unknown Active No Information Medications Medication Instructions Dosage Effective Dates (start - stop) Status Comments Valium 10 mg tablet take 1 tablet by oral route 1 hour prior to RFN - Active hydrocodone 5 mg-acetaminophen 325 mg tablet take 1-2 tablet by oral route 1 hour prior to RFN, then 1-2 every 6 hours as needed for pain - Active VOLTAREN (unknown strength) Not Available - Active Centrum Silver tablet - Active Glucosamine 500 mg tablet - Active COLACE (unknown strength) Not Available - Active ELESTRIN (unknown strength) Not Available - Active CELEBREX (unknown strength) Not Available - Active PROTONIX IV (unknown strength) Not Available - Active FLONASE (unknown strength) Not Available - Active Procedures Procedure Date OFFICE/OUTPATIENT VISIT EST OFFICE/OUTPATIENT VISIT EST Advance Directives Directive Yes / No Effective Date File Name Resuscitation Not Answered N/A N/A Life Support Not Answered N/A N/A Intubation Not Answered N/A N/A Antibiotics Not Answered N/A N/A IV Fluid Support Not Answered N/A N/A Tube Feed Not Answered N/A N/A Other Directive N/A N/A WARNING:The information contained in this section is historical and is provided for information only and does not constitute a legal document or any assurance that the information is still accurate. Please verify the information with the newberry of the legal document before using it for clinical purposes. Encounters Encounter Description Practice Location Reason(s) For Visit Diagnoses Date Provider Providers Copied on Encounter OFFICE/OUTPA TIENT VISIT EST [facility], [address] [place] [address], [facility], [phone] [facility] LumbagoLumbosac ral spondylosis without myelopathy 3 Hiren Agee. [address] [place] [address], [id number] . tel: [phone] Specialist : Lucho Todd, [address] [place] [address] [address], [place], [address] . tel:[phone] [facility], [address] [place] [address], [facility], [phone] [facility] LumbagoLumbosac ral spondylosis without myelopathy 3 Hiren Agee. [address] [place] [address], [id number] . tel: [phone] [facility], [address] [place] [address], [facility], tel:[phone] [facility] [address] No Information 3 Hiren Agee. [address] [place] [address], [id number] . tel: [phone] OFFICE/OUTPA TIENT VISIT EST [facility], [address] [place] [address], [facility], tel:[phone] [facility] Lumbosacral spondylosis without myelopathyLumba go 3 Hiren Agee. [address] [place] [address], [id number] . tel: [phone] Referring Provider: Lucho Eaton, [address] [place] [address] [address], [place], [address] . tel:[phone] [facility], [address] [place] [address], [address], tel:[phone] [facility] No Information 3 Hiren Agee. [address] [facility], [place], [place], [id number] . tel: [phone] Family History Family Member Type Diagnosis Age At Onset No Information Payers Payer name Insurance type Covered green party ID Authoriza tion(s) No Information Social History Type Description Quantity Date Captured Comments Alcohol Use Details Unknown Caffeine Use Details Unknown Tobacco Use Status No Information Smoking Status Former smoker Sex Female Chief Complaint And Reason For Visit No Information Reason For Referral Reason For Referral No Information Plan Of Treatment Date Type Action Status Referral Ordered: DESTROY LUMB/SAC FACET JNT Bilateral spine, lumbar Appointment date/timeframe: 05/22/2013 ordered History Of Present Illness Encounter Date Complaint History Of Prese nt Illness No Information Functional Status Date Functional Assessmen t No Information Instructions Date Instruction Additional Infor kyraion Physical activity counseling Rel ated to Dietary surveillance counseling Physical activity counseling Rel ated to Dietary surveillance counseling Physical activity counseling Rel ated to Dietary surveillance counseling Assessments Type Assessment Date No Information Patient Care Teams Name Effective Dates (start - stop) Status Members No Information
--- OUTSIDE RECORDS SUMMARY | 2024-11-06 10:30 | XMS_ITS | Encounter Summary ---
Author Organization [facility] Health Address [facility] [place] [address] Care Team Providers Care Shipping And Receiving Weigher Name Role Phone Lance Pringle MD Primary Care Provider [phone] Peter Sommers DO Primary Care Provider [phone] Juan Jose Anne MD Unavailable Encounter Details Date Type Department Care Team [...] on filedocumented in this encounter Care Teams Shipping And Receiving Weigher Relationship Specialty Start Date End Date Lance Pringle MD [address] [place] [address] PCP - General Internal Medicine 01/25/16 03/28/21 Peter Sommers DO [address] [place] [address] PCP - General Internal Medicine 03/29/21 [place] [address] [address] Physical Medicine and Rehabilitation 03/29/21 documented as of this encounter
--- OUTSIDE RECORDS SUMMARY | 2024-11-06 10:30 | XMS_ITS | Encounter Summary ---
Author Organization [facility] Address [address] [place] [address] Care Team Providers Care Pot Reliner Name Role Phone Peter Sommers Primary Care Provider [phone] Reason for Visit * Reason Comments Medication Refill Encounter Details Date Type Department Care Team (Late Contact Info) Description 04/27/2018 Refill [facility] Orthopedic Surgery - [facility] [address] [address] Lucho Todd MD [address] [facility] [address] [place] [address] Social History Tobacco Use Types [...] [facility] at the [facility] Medicine [address] [place] [address] Lucho Todd MD [address] [facility] [address] [place] [address] documented as of this encounter Visit Diagnoses Not on filedocumented in this encounter Care Teams Pot Reliner Relationship Specialty Start Date End Date Peter Sommers DO [address] [facility] 162 [facility] [address] [place] [address] PCP - General Internal Medicine 02/25/20 documented as of this encounter
--- OUTSIDE RECORDS SUMMARY | 2024-11-06 10:30 | XMS_ITS | Encounter Summary ---
Author Organization [facility] Address [address] [facility] [place] [address] Care Team Providers Care Sign Painter Name Role Phone Lance Pringle MD Primary Care Provider [phone] Peter Sommers DO Primary Care Provider [phone] Juan Jose Anne MD Unavailable [phone] Encounter Details Date Type Department Care Team (Late st Contact Info) Description 04/02/2020 Lab Requisition [facility] [address] [facility], [place] [address] Eva Bar MD [address] [facility] 3 [place] [address] Social History Tobacco Use Types Packs/Day Years [...] AM CDT) Case Report Dermatopathology Report Case: [id number] Authorizing Provider: Eva Bar MD Collected: 04/01/2020 12:00 AM Ordering Location: [facility] Received: 04/02/2020 06:24 AM Pathologist: [...] The specimen consists of a shave measuring [id number]. Jar 0. 0 2:43 PM CDT DERMATOPATHOLOGY [...] characteristic determined by the Dermatopathology Laboratory at [facility], directed by Dr. Devin Schmid. These tests need not be, and therefore are not, approved by the [place] Food and Drug Administration. The tests are used for clinical purposes. Billing Codes Specimen Charges Stain Charges 65288 1 0 2:43 PM CDT DERMATOPATHOLOGY LABORATORY Embedded Images 0 2:43 PM CDT DERMATOPATHOLOGY LABORATORY Pathology/Cytolog y TISSUE SPECIMEN FROM SKIN / Unknown 04/01/2020 04/02/2020 6:24 AM CDT Eva Bar MD LAB - PATHOLOGY/CYTO LOGY ORDERABLES DERMATOPATHOLOGY LABORATORY [facility] - Department of Dermatology [address], [address] [phone] documented in this encounter Visit Diagnoses Not on filedocumented in this encounter Care Teams Sign Painter Relationship Specialty Start Date End Date Lance Pringle MD [address] [place] [address] PCP - General Internal Medicine 01/25/16 03/28/21 Peter Sommers DO [address] [place] [address] PCP - General Internal Medicine 03/29/21 [place] [address] [address] Physical Medicine and Rehabilitation 03/29/21 documented as of this encounter
--- OUTSIDE RECORDS SUMMARY | 2024-11-06 10:30 | XMS_ITS | Encounter Summary ---
Author Organization [facility] Address [address] [place] [address] Care Team Providers Care Grader Tender Name Role Phone Peter Sommers Primary Care Provider [phone] Reason for Visit * Reason Comments Medication Refill Encounter Details Date Type Department Care Team (Late Contact Info) Description 04/21/2019 Refill [facility] Orthopedic Surgery - [facility] [address] [address] Lucho Todd MD [address] [facility] [address] [place] [address] Social History Tobacco Use Types [...] Description 11/25/2024 11:00 AM CDT Office Visit [facility] Orthopedic Surgery at the [facility] [place] Medicine [address] [place] [address] Lucho Todd MD [address] [facility] [address] [place] [address] documented as of this encounter Visit Diagnoses Not on filedocumented in this encounter Care Teams Grader Tender Relationship Specialty Start Date End Date Peter Sommers DO [address] [facility] 162 [facility] [address] [place] [address] PCP - General Internal Medicine 02/25/20 documented as of this encounter
--- OUTSIDE RECORDS SUMMARY | 2024-11-06 10:30 | XMS_ITS | Encounter Summary ---
Author Organization [facility] Address [address] [place] [address] Care Team Providers Care Mixer Driver Name Role Phone Peter Sommers Primary Care Provider [phone] Reason for Visit * Reason Comments Medication Refill Encounter Details Date Type Department Care Team (Late st Contact Info) Description 11/17/2017 Refill [facility] Orthopedic Surgery - [facility] [address] [address] Lucho Todd MD [address] [facility] [facility] [address] [place] [address] Social History Tobacco Use Types [...] Description 11/25/2024 11:00 AM CDT Office Visit [facility] Orthopedic Surgery at the [facility] Medicine [address] [place] [address] Lucho Todd MD [address] [facility] [address] [place] [address] documented as of this encounter Visit Diagnoses Not on filedocumented in this encounter Care Teams Mixer Driver Relationship Specialty Start Date End Date Peter Sommers DO [address] [facility] 162 [facility] 204 [place] [address] PCP - General Internal Medicine 02/25/20 documented as of this encounter
--- OUTSIDE RECORDS SUMMARY | 2024-11-06 10:30 | XMS_ITS | Encounter Summary ---
Author Organization [facility] Address [address] [facility] [place] [address] Care Team Providers Care Matrix Drier Tender Name Role Phone Lance Pringle MD Primary Care Provider [phone] Peter Sommers DO Primary Care Provider [phone] Juan Jose Anne MD Unavailable Encounter Details Date Type Department Care Team (Late st Contact Info) Description 06/16/2020 Lab Requisition [facility] [address] [facility], [place] [address] Eva Bar MD [address] [facility] 3 [place] [address] Social History Tobacco Use Types Packs/Day Years [...] Comments DERMATOPATHOLOGY Routine 06/15/2020 12:0 0 AM FIRE BOAT ENGINEER documented in this encounter Results * DERMATOPATHOLOGY (06/15/2020 12:00 AM FIRE BOAT ENGINEER) Case Report Dermatopathology Report Case: [id number] Authorizing Provider: Eva Bar MD Collected: 06/15/2020 12:00 AM Ordering Location: [facility] Lab Received: 06/16/2020 07:55 AM Pathologist: Shy Schmid MD Specimen: Skin, right neck 0 5:38 PM FIRE BOAT ENGINEER DERMATOPATHOLOGY LABORATORY Final Diagnosis Specimen A. SKIN, right neck: DERMAL SCAR RESIDUAL SQUAMOUS CELL CARCINOMA NOT IDENTIFIED (L90.5) 0 5:38 PM FIRE BOAT ENGINEER DERMATOPATHOLOGY LABORATORY Clinical History R/O SCC, well differentiated, bx proven. 0 5:38 PM FIRE BOAT ENGINEER DERMATOPATHOLOGY LABORATORY Gross Description Specimen A: Received is one formalin filled container labeled with the patient's name and designated right neck. The specimen consists of a non-oriented ellipse of skin measuring 79l1m5ow. The epidermal surface consists of a centrally located 3x3mm previous biopsy site. The margin is inked green. The 12 o'clock and 6 o'clock tips are submitted in cassette 1. The remainder of the ellipse is serially sectioned and submitted in cassettes 2-3. Jar 0. 0 5:38 PM FIRE BOAT ENGINEER DERMATOPATHOLOGY LABORATORY Microscopic Description Specimen A. SKIN, right neck: There are fibroblasts and collagen bundles oriented parallel to the skin surface. There are elongated blood vessels, some of which are oriented perpendicular to the skin surface. No residual squamous cell carcinoma is identified. 0 5:38 PM [facility] [place] DERMATOPATHOLOGY LABORATORY Disclaimer An external and internal positive and negative controls are appropriate for the histochemical, immunohistochemical and immunofluorescence stain(s) in this case (if any), except where stated explicitly. The performance characteristics of the stain(s) cited in this report were developed and its performance characteristic determined by the Dermatopathology Laboratory at [facility], directed by Dr. Devin Schmid. These tests need not be, and therefore are not, approved by the [place] Food and Drug Administration. The tests are used for clinical purposes. Billing Codes Specimen Charges Stain Charges 10836 1 0 5:38 PM FIRE BOAT ENGINEER DERMATOPATHOLOGY LABORATORY Embedded Images 0 5:38 PM FIRE BOAT ENGINEER DERMATOPATHOLOGY LABORATORY Pathology/Cytolog y TISSUE SPECIMEN FROM SKIN / Unknown 06/15/2020 06/16/2020 7:55 AM FIRE BOAT ENGINEER Eva Bar MD LAB - PATHOLOGY/CYTO LOGY ORDERABLES DERMATOPATHOLOGY LABORATORY [facility] - Department of Dermatology [facility] Medicine [address] [place] [address], [address] [phone] documented in this encounter Visit Diagnoses Not on filedocumented in this encounter Care Teams Matrix Drier Tender Relationship Specialty Start Date End Date Lance Pringle MD [address] [place] [address] PCP - General Internal Medicine 01/25/16 03/28/21 Peter Sommers DO [address] [place] [address] PCP - General Internal Medicine 03/29/21 [place] [address] [address] Physical Medicine and Rehabilitation 03/29/21 documented as of this encounter
--- OUTSIDE RECORDS SUMMARY | 2024-11-06 10:30 | XMS_ITS | Encounter Summary ---
Author Organization [facility] Address [address] [place] [address] Care Team Providers Care Gerontology Aide Name Role Phone Peter Sommers Primary Care Provider [phone] Reason for Visit * Reason Comments Medication Refill Encounter Details Date Type Department Care Team (Late Contact Info) Description 01/19/2018 Refill [facility] Orthopedic Surgery - [facility] [address] [address] Lucho Todd MD [address] [facility] [address] [place] [address] Social History Tobacco Use Types [...] Description 11/25/2024 11:00 AM CDT Office Visit [facility] Orthopedic Surgery at the [facility] Medicine [address] [place] [address] Lucho Todd MD [address] [facility] [address] [place] [address] documented as of this encounter Visit Diagnoses Not on filedocumented in this encounter Care Teams Gerontology Aide Relationship Specialty Start Date End Date Peter Sommers DO [address] [facility] 162 [facility] 204 [place] [address] PCP - General Internal Medicine 02/25/20 documented as of this encounter
--- OUTSIDE RECORDS SUMMARY | 2024-11-06 10:30 | XMS_ITS | Encounter Summary ---
Author Organization [facility] Health Address [facility] [facility] [place] [address] Care Team Providers Care Mechanical Equipment Sales Engineer Name Role Phone Lance Pringle MD Primary Care Provider [phone] Peter oSmmers DO Primary Care Provider [phone] Juan Jose Anne MD Unavailable [phone] Encounter Details Date Type Department Care Team [...] on filedocumented in this encounter Care Teams Mechanical Equipment Sales Engineer Relationship Specialty Start Date End Date Lance Pringle MD [address] [place] [address] PCP - General Internal Medicine 01/25/16 03/28/21 Peter Sommers DO [address] [place] [address] PCP - General Internal Medicine 03/29/21 [place] [address] [address] Physical Medicine and Rehabilitation 03/29/21 documented as of this encounter
--- OUTSIDE RECORDS SUMMARY | 2024-11-06 10:30 | XMS_ITS | Encounter Summary ---
Author Organization [facility] Health Address [address] [facility] [place] [address] Care Team Providers Care Esthetician Spa Name Role Phone Lance Pringle MD Primary Care Provider [phone] Peter Sommers DO Primary Care Provider [phone] Juan Jose Anne MD Unavailable [phone] Encounter Details Date Type Department Care Team (Late st Contact Info) Description 04/04/2016 [facility] Outpatient Visit [address] [address] Anuel Zabala MD [address] [place] [address] Social History Tobacco Use Types Packs/Day [...] on filedocumented in this encounter Care Teams Esthetician Spa Relationship Specialty Start Date End Date Lance Pringle MD [address] [place] [address] PCP - General Internal Medicine 01/25/16 03/28/21 Peter Sommers DO [address] [place] [address] PCP - General Internal Medicine 03/29/21 [place] [address] [address] Physical Medicine and Rehabilitation 03/29/21 documented as of this encounter
--- OUTSIDE RECORDS SUMMARY | 2024-11-06 10:30 | XMS_ITS | Encounter Summary ---
Author Organization [facility] Health Address [facility] [place] [address] Care Team Providers Care Third Loader Name Role Phone Lance Pringle MD Primary Care Provider [phone] Peter Sommers DO Primary Care Provider [phone] Juan Jose Anne MD Unavailable [phone] Encounter Details Date Type Department Care Team [...] on filedocumented in this encounter Care Teams Third Loader Relationship Specialty Start Date End Date Lance Pringle MD [address] [place] [address] PCP - General Internal Medicine 01/25/16 03/28/21 Peter Sommers DO [address] [place] [address] PCP - General Internal Medicine 03/29/21 [place] [address] [address] Physical Medicine and Rehabilitation 03/29/21 documented as of this encounter
--- OUTSIDE RECORDS SUMMARY | 2024-11-06 10:30 | XMS_ITS | Referral Summary ---
Author Organization [facility] Address [address] [place] [address] Care Team Providers Care Central Office Frame Wirer Name Role Phone Peter Sommers DO Primary Care Provider [phone] Encounters Date Type Department Care Team Description 08/18/2024 2:30 PM FAN ENGINE ENGINEER Office Visit [facility] Cardiology [address] [place] [address] Sandor Jones MD Syncope and collapse (Primary Dx) from Last 3 Months Allergies Active Allergy Reactions Criticality Noted Date Comments Codeine Hydrocodone Syncope Reaction: passes out, , Hydrocodone Bitartrate Unknown 11/27/2018 Omeprazole Rash Medium 04/26/2016 Rash Oxycodone-Acetaminophen Nausea And Vomiting Medications omeprazole 20 mg tablet,delayed release (DR/EC) 1 Tablet daily 0 0 4 Active wizqzxfr-sof-TF- lycopen-lutein (CENTRUM SILVER) 0.4-300-250 mg-mcg-mcg tablet 1 [...] on file Legal Sex Female 3:29 AM FAN ENGINE ENGINEER Gender Identity Not on file Sexual Orientation Not on file Last Filed Vital Signs Vital Sign Reading Time Taken Comments Blood Pressure 138/62 08/18/2024 2:30 PM FAN ENGINE ENGINEER Pulse 102 08/18/2024 2:30 PM FAN ENGINE ENGINEER Temperature 36.7 C (98 F) 12/10/2023 1:49 PM CDT Respiratory Rate 18 12/10/2023 1:49 PM CDT Oxygen Saturation 96% 08/18/2024 2:30 PM FAN ENGINE ENGINEER Inhaled Oxygen Concentration - - Weight 87.5 kg (192 lb 14.4 oz) 08/18/2024 2:30 PM FAN ENGINE ENGINEER Height 160 cm (5' 3 ) 08/18/2024 2:30 PM FAN ENGINE ENGINEER Body Mass Index 34.17 08/18/2024 2:30 PM FAN ENGINE ENGINEER Plan of Treatment Not on file Insurance MEDICARE [facility] CHOICE PLUS [facility] MEDICARE MEDICARE [facility] CHOICE PLUS Advance Directives For more information, please contact: [phone] Documents on File Type Date Recorded Patient Bacteriologist Medical Expl anation ADVANCE DIRECTIVE 04/27/2016 12:00 AM ROBI R OF SKILL LABOR FINANCIAL/MEDICAL Care Teams Central Office Frame Wirer Relationship Specialty Start Date End Date Peter Sommers DO PCP - General Internal Medicine 04/22/19
--- OUTSIDE RECORDS SUMMARY | 2024-11-06 10:30 | XMS_ITS | Encounter Summary ---
Author Organization [facility] Health Address [facility] [facility] [place] [address] Care Team Providers Care Space Technologist Name Role Phone Lance Pringle MD Primary Care Provider [phone] Peter Sommers DO Primary Care Provider [phone] Juan Jose Anne MD Unavailable [phone] Encounter Details Date Type Department Care Team [...] on filedocumented in this encounter Care Teams Space Technologist Relationship Specialty Start Date End Date Lance Pringle MD [address] [place] [address] PCP - General Internal Medicine 01/25/16 03/28/21 Peter Sommers DO [address] [place] [address] PCP - General Internal Medicine 03/29/21 [place] [address] [address] Physical Medicine and Rehabilitation 03/29/21 documented as of this encounter
--- OUTSIDE RECORDS SUMMARY | 2024-11-06 10:30 | XMS_ITS | Clinical Summary ---
Author Organization [facility] Address [address] [place] [address] Care Team Providers Care Coin Machine Mechanic Name Role Phone Peter Sommers Primary Care Provider [phone] Juan Jose Anne MD Unavailable [phone] Source Comments [facility],non-owned Affiliates and Associated Physician Practices is amultiple site organization consisting of ambulatory clinics and hospital sitesin [place], [place] and [place]. This disclosure is being madepursuant to the Care Everywhere program and may not contain all information available regarding this patient. Last updated 18.[facility] Allergies Active Allergy Reactions Criticality [...] 4 HOURS NEEDED FOR WHEEZING 12/06/2020 Active Iwlxolu-Rpzvixwskb-Tn tamin D (CITRACAL +D3 PO) Active Glucosamine [...] this topic Medical Devices Implanted Type Area Basketball Coach Device Identifier Shelf Expiration Date Model / Serial / Lot Edwina David Bone Dbm Progenix 10cc Implanted:Qty: 1 on 04/04/2016 by Anuel Zabala MD at [facility] Spine Lumbar Medtronic Sofamor [employer]ane[employer] 10/10/2017 [id number] / / [id number] Corelink, Crosslink 16mm Implanted:Qty: 1 on 04/04/2016 by Anuel Zabala MD at [facility] Spine Lumbar [id number] / / Corelink, 150mm Wilber Straight Implanted:Qty: 2 on 04/04/2016 by Anuel Zabala MD at [facility] Spine Lumbar [id number] / / Corelink, Wilber 18mm Implanted:Qty: 1 on 04/04/2016 by Anuel Zabala MD at [facility] Spine Lumbar [id number] / / Mini Connector, Corelink Implanted:Qty: 1 on 04/04/2016 by Anuel Zabala MD at [facility] Spine Lumbar [id number] / / Corelink, Extended Connector Implanted:Qty: 1 on 04/04/2016 by Anuel Zabala MD at [facility] Spine Lumbar [id number] / / Putty Grft Bone Dbm Progenix 10cc Implanted:Qty: 1 on 04/04/2016 by Anuel Zabala MD at [facility] Spine Lumbar Medtronic Sofamor Danek Inc 10/10/2017 [id number] / / [id number] Bone Crush Canc 30cc Implanted:Qty: 1 on 04/04/2016 by Anuel Zabala MD at [facility] Spine Lumbar Allosource 12/11/2020 [id number] / / Corelink, 6.5mm X 45mm Srew Implanted:Qty: 5 on 04/04/2016 by Anuel Zabala MD at [facility] Spine Lumbar [id number] / / Corelink, 6.5mm X 50mm Screw Implanted:Qty: 5 on 04/04/2016 by Anuel Zabala MD at [facility] Spine Lumbar [id number] / / Corelink, Locking Nuts Implanted:Qty: 10 on 04/04/2016 by Anuel Zabala MD at [facility] Spine Lumbar [id number] / / Corelink, Connector Implanted:Qty: 8 on 04/04/2016 by Anuel Zabala MD at [facility] Spine Lumbar 45056.01 / / Corelink, 9mm Cage Implanted:Qty: 1 on 04/04/2016 by Anuel Zabala MD at [facility] Spine Lumbar [id number] / / Corelink, Cage 7mm Implanted:Qty: 1 on 04/04/2016 by Anuel Zabala MD at [facility] Spine Lumbar [id number] / / Advance Directives Documents on File Type Date Recorded Patient Cathodic Protection Technician Expl anation Adv Directive/Living Will/POA 04/08/2016 10:05 [...] 3:14 PM 04/07/2016 1:54 PM Care Teams Coin Machine Mechanic Relationship Specialty Start Date End Date Peter Sommers DO [address] [place] [address] PCP - General Internal Medicine 03/29/21 [place] [address] [place] [address] Physical Medicine and Rehabilitation 03/29/21
--- OUTSIDE RECORDS SUMMARY | 2024-11-06 10:31 | XMS_ITS | Clinical Summary ---
Author Organization [facility] Address [address] [place] [address] Phone Care Team Providers Care Cellular Phone Repairer Name Role Phone Peter Sommers Primary Care Provider [phone] Allergies Active Allergy Reactions Criticality Noted Date Comments Codeine Unknown 06/19/2013 Other reaction(s): Unknown Hydrocodone Other (See Comments) 05/13/2014 . Omeprazole Unknown 06/19/2013 Oxycodone-Acetaminophen Nausea and Vomiting Low Medications fluticasone (FLONASE) 50 mcg/spray [place], Suspension Administer 2 Sprays in each nostril [...] intramuscular injection one time only. Active [place] Zit-Kvb-Y3-Zn-Machinist Mate- Man-Bor (CITRACAL PLUS MAGNESIUM) 250-40-125 mg-mg-unit Tablet [...] 90.3 kg (199 lb) 07/25/2024 12:48 PM NEWSPAPER ILLUSTRATOR Height 160 cm (5' 3 ) 07/25/2024 12:48 PM NEWSPAPER ILLUSTRATOR Body Mass Index 35.25 07/25/2024 12:48 PM NEWSPAPER ILLUSTRATOR Plan of Treatment Upcoming Encounters Date Type Department Care Team (Late st Contact Info) Description 11/25/2024 11:00 AM CDT Office Visit [facility] Orthopedic Surgery at the [facility] Medicine [address] [place] [address] Lucho Todd MD [address] [place] [address] Health Maintenance Due Date Last [...] years Discontinued Medical Devices Implanted Type Area Electronics Specialist Device Identifier Shelf Expiration Date Model / Serial / Lot Cement [place] G-Hv 40g [id number] - [id number] Implanted:Qty: 1 on 05/25/2014 at [facility] Cement Right: Knee BIOMET INC 03/05/2016 [id number] / / [id number] Comp Tib Cocr Finned 75mm [id number] - [id number] Implanted:Qty: 1 on 05/25/2014 by Lucho Todd MD at [facility] Knee Right: Knee [employer]ET INC 02/03/2024 [id number] / / [id number] Description:PROCESSED ON REQ UISITION,[id number]. Comp Fem Vngrd Cr Intrlk Rt 60mm [id number] - [id number] Implanted:Qty: 1 on 05/25/2014 by Lucho Todd MD at [facility] Knee Right: Knee BIOMET INC 05/05/2022 [id number] / / [id number] Brng Epoly As Tib [id number] Vangrd [id number] - [id number] Implanted:Qty: 1 on 05/25/2014 by Lucho Todd MD at [facility] Knee Right: Knee [employer]ET INC 10/03/2016 [id number] / / [id number] Insurance AETNA PPO MCR Advance Directives For more information, please contact: [phone] * Full Code (Latest Code Status on File) Date Activated Date Inactivated Comments 05/25/2014 11:24 AM 05/28/2014 1:37 PM * Full Code Date Activated Date Inactivated Comments 05/25/2014 5:36 AM 05/25/2014 11:24 AM Care Teams Cellular Phone Repairer Relationship Specialty Start Date End Date Peter Sommers DO [address] [place] [address] PCP - General Internal Medicine 02/25/20
--- NOTE | 2024-11-06 11:45 | NEURO_ITS ---
Clinical note: The patient 83-year-old with complaints of paresthesias in right lower limb and pain in the lower back. A brief neurological examination no focal abnormalities were seen. Patient has had a surgery in the lumbar spine in the past. Summary of findings: 1. Left and right peroneal motor distal latency was normal however amplitudes were significantly decreased right more than left side. Conduction velocity across the fibular head was normal however from fibular head to ankle on the right side was decreased. Right deep peroneal motor study was performed while recording over extensor digitorum brevis which shows significant decreased amplitude. 2. Left and right sural and right medial plantar sensory were absent. 3. Left H-reflex latency was normal however amplitude was significantly decreased. Right H-reflex was absent. 4. EMG examination was performed were various muscles were examined in the lower limbs. Paraspinals were not examine in view of the previous surgery in the lumbar spine. Motor unit changes and decreased recruitment was noted in L5- S1 distribution on both sides including gluteal muscles. Impression 1. Evidence of moderate sensory motor, length-dependent, axonal peripheral neuropathy. Etiologic correlation recommended 2. The above study raises possibility of chronic L5-S1 radiculopathy. Paraspinal muscles were not examined in view of the previous surgery on the lumbar spine. These appear to be residual findings. motor unit changes and decreased recruitment was noted in L5-S1 distribution as shown below. Clinical radiographic correlation are recommended. Michele Myrick MD, FAAN, FAANEM Neurologist Nerve Conduction Studies Motor Nerve Results ? Latency Amplitude F-Lat Segment Distance CV Comment Site (ms) (mV) (ms) (cm) (m/s) Right Dp Branch Fibular (TA) Motor Fib Head 3.9 0.46 Pop Fossa 4.2 0.54 Pop Fossa-Fib Head - - Left Peroneal (EDB) Motor Ankle 5.6 0.62 Bel Fib Head 13.0 0.95 Bel Fib Head-Ankle 200 27 Pop Fossa 15.0 0.92 Pop Fossa-Bel Fib Head 80 40 Right Peroneal (EDB) Motor Ankle 4.9 0.14 Bel Fib Head 11.5 0.14 Bel Fib Head-Ankle 275 42 Pop Fossa 13.6 0.10 Pop Fossa-Bel Fib Head 80 38 Left Tibial (AHB) Motor Ankle 6.5 5.4 Knee 16.7 2.8 Knee-Ankle 400 39 Right Tibial (AHB) Motor Ankle 6.4 6.5 Knee 15.5 5.6 Knee-Ankle 270 30 Sensory Nerve Results ? Latency (Peak) Amplitude (P-P) Segment Distance CV Comment Site (ms) (?V) (cm) (m/s) Right Medial Plantar (Ortho) Sensory Great Toe-Med Mall NR NR Great Toe-Med Mall 110 NR Left Sural Sensory Calf-Lat Mall NR NR Calf-Lat Mall 120 NR Right Sural Sensory Calf-Lat Mall NR NR Calf-Lat Mall 120 NR H-Reflex Results ? M-Lat H Lat H Peak-Peak Amp M Peak-Peak Amp H-M Lat Site (ms) (ms) mV mV (ms) Left Tibial H-Reflex Pop Fossa 6.5 30.9 3.0 0.44 24.4 Right Tibial H-Reflex Pop Fossa - NR - - NR Electromyography ?Side Muscle Nerve Ins Act Fibs Psw Amp Dur Recrt Comment Right BicepsFemS Sciatic Nml Nml Nml Nml Nml Nml Right Semimembranosus Sciatic Nml Nml Nml Incr >12ms +2 Right AntTibialis Dp Br Fibular Nml Nml Nml Incr >12ms +3 Right Gastroc Tibial Nml Nml Nml Incr >12ms +2 Right VastusMed Femoral Nml Nml Nml Incr >12ms +2 Right RectFemoris Femoral Nml Nml Nml Incr >12ms +2 Right GluteusMax InfGluteal Nml Nml Nml Incr >12ms +2 Right TensorFascLat SupGluteal Nml Nml Nml Incr >12ms +1 Left BicepsFemS Sciatic Nml Nml Nml Nml Nml Nml Left Semimembranosus Sciatic Nml Nml Nml Nml Nml Nml Left AntTibialis Dp Br Fibular Nml Nml Nml Nml Nml Nml Left Gastroc Tibial Nml Nml Nml Nml Nml Nml Left VastusMed Femoral Nml Nml Nml Nml Nml Nml Left RectFemoris Femoral Nml Nml Nml Nml Nml Nml Left GluteusMax InfGluteal Nml Nml Nml Nml Nml Nml Left TensorFascLat SupGluteal Nml Nml Nml Nml Nml Nml Right Fibularis Long Sup Br Fibular Nml Nml Nml Incr >12ms +3 Right AdductorLong Obturator Nml Nml 1+ Nml Nml +1 MTDD
== END 2024-11-06 09:52 | disposition home or self-care (01) ==
LOC: ANHNEURO 09:52
PROVIDERS: PCP Nurse Practitioner Family; Visit Provider Psychiatry & Neurology Neurology
DX: G62.89 Other specified polyneuropathies (principal); E11.9 Type 2 diabetes mellitus without complications; R55 Syncope and collapse; M21.371 Foot drop, right foot; M54.16 Radiculopathy, lumbar region; J44.9 Chronic obstructive pulmonary disease, unspecified; M54.9 Dorsalgia, unspecified; G89.29 Other chronic pain; Z98.890 Other specified postprocedural states
CPT/HCPCS: 95886; 95910

== ENCOUNTER 2025-06-19 04:42 | Emergency (ER) | payer MEDICARE, SELFPAY ==
--- NOTE | ~2025-06-19 | XR_ITS ---
EXAMINATION: XR knee RT 3V DATE: 06/19/2025 06:06 INDICATION: Pain TECHNIQUE: Right knee x-ray were obtained. COMPARISON: None. FINDINGS: Right total knee arthroplasty hardware appears intact with no gross loosening failure or fracture. The bones are mildly osteopenic diffusely. Vascular calcifications noted. No large suprapatellar effusion. IMPRESSION: 1. No gross acute abnormality. Chronic findings as above. Reviewed, dictated and finalized at location A. MANAGER
[2025-06-19 04:44] VITALS: BP 222/96; PULSE 85; RESP 15; TEMP 36.9; O2SAT 99
[2025-06-19 06:17] VITALS: O2SAT 96
[2025-06-19 06:19] VITALS: BP 202/82; O2SAT 97
--- NOTE | 2025-06-19 08:10 | PC.NURSE ---
Pt waiting to be seen, wants to leave. Out of dept. per wc.
--- OUTSIDE RECORDS SUMMARY | 2025-06-19 09:03 | XMS_ITS | Encounter Summary ---
Author Organization [facility] Address [address] [place] [address] Care Team Providers Care Finance Broker Name Role Phone Lance Pringle MD Primary Care Provider [phone] Peter Sommers DO Primary Care Provider [phone] Juan Jose Anne MD Unavailable [phone] Encounter Details Date Type Department Care Team (Late st Contact Info) Description 04/02/2020 Lab Requisition [facility] [address] [facility] [place] [address] Eva Bar MD [address] [facility] [address] [place] [address] Social History Tobacco Use Types Packs/Day Years Used Date Smoking Tobacco: Former Cigarettes 0 Q uit: 08/06/1995 Alcohol Use Standard Drinks/Week Comments Yes 0 (1 standard drink = 0.6 oz pur e alcohol) Comments No Sex and Gender Information Value Date Recorded Sex Assigned at Not on file Legal Sex Female 12:37 PM CDT Gender Identity Not on file Sexual Orientation Not on file documented as of this encounter Functional Status * Is person deaf or have serious hearing difficulty? Answer Date of Assessment Author No 05/31/2016 8:37 AM CDT Berta Crystal RN * Is person blind or have serious difficulty seeing? Answer Date of Assessment Author No 05/31/2016 8:37 AM CDT Berta Crystal RN * Does person have serious difficulty walking/climbing stairs? Answer Date of Assessment Author Yes 05/31/2016 8:37 AM CDT Berta Crystal RN * Does person have difficulty dressing/bathing? Answer Date of Assessment Author Yes 05/31/2016 8:37 AM CDT Berta Crystal RN * Does person have difficulty doing errands alone? Answer Date of Assessment Author Yes 05/31/2016 8:37 AM CDT Berta Crystal RN documented as of this encounter Mental Status * Does person have difficulty concentrating/remembering/making decisions? Answer Entry Date Author No 05/31/2016 8:37 AM LAURAT Berta Crystla RN documented in this encounter Plan of Treatment Not on file documented as of this encounter Procedures Procedure Name Priority Date/Time Associated Diagnosis Comments DERMATOPATHOLOGY Routine 04/01/2020 12:0 0 AM CDT documented in this encounter Results * DERMATOPATHOLOGY (04/01/2020 12:00 AM CDT) Case Report Dermatopathology Report Case: [id number] Authorizing Provider: Eva Bar MD Collected: 04/01/2020 12:00 AM Ordering Location: [facility] Lab Received: 04/02/2020 06:24 AM Pathologist: Romain Hutton MD Specimen: Skin, right neck 0 2:43 PM CDT DERMATOPATHOLOGY LABORATORY Final Diagnosis Specimen A. 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 0 2:43 PM CDT DERMATOPATHOLOGY LABORATORY Gross Description Specimen A: Received is one formalin filled container labeled with the patient's name and designated right neck. The specimen consists of a shave measuring [id number]. Jar 0. 0 2:43 PM CDT DERMATOPATHOLOGY [...] characteristic determined by the Dermatopathology Laboratory at [facility], directed by Dr. Devin Schmid. These tests need not be, and therefore are not, approved by the [place] Food and Drug Administration. The tests are used for clinical purposes. Billing Codes Specimen Charges Stain Charges 81878 1 0 2:43 PM CDT DERMATOPATHOLOGY LABORATORY Embedded Images 0 2:43 PM CDT DERMATOPATHOLOGY LABORATORY Pathology/Cytolog y TISSUE SPECIMEN FROM SKIN / Unknown 04/01/2020 04/02/2020 6:24 AM CDT Eva Bar MD LAB - PATHOLOGY/CYTOLOGY ORD ERABLES Final Result Performing Organization Address [facility]/State/ZIP Co de Phone Number DERMATOPATHOLOGY LABORATORY [facility] - Department of Dermatology [facility] Medicine [address] [place] [address], [address] [phone] documented in this encounter Visit Diagnoses Not on filedocumented in this encounter Care Teams Finance Broker Relationship Specialty Start Date End Date Lance Pringle MD [address] [place] [address] PCP - General Internal Medicine 01/25/16 03/28/21 Peter Sommers DO [address] [place] [address] PCP - General Internal Medicine 03/29/21 [place] [address] [place] [address] Physical Medicine and Rehabilitation 03/29/21 documented as of this encounter
--- OUTSIDE RECORDS SUMMARY | 2025-06-19 09:03 | XMS_ITS | Encounter Summary ---
Author Organization [facility] Address [address] [place] [address] Care Team Providers Care Web Production Assistant Name Role Phone Lance Pringle MD Primary Care Provider [phone] Peter Sommers DO Primary Care Provider [phone] Juan Jose Anne MD Unavailable Encounter Details [...] of Assessment Author No 05/31/2016 8:37 AM Berta Coleman RN * Does person have serious difficulty walking/climbing stairs? Answer Date of Assessment Author Yes 05/31/2016 8:37 AM Berta Coleman RN * Does person have difficulty dressing/bathing? Answer Date of Assessment Author Yes 05/31/2016 8:37 AM Berta Coleman RN * Does person have difficulty doing errands alone? Answer Date of Assessment Author Yes 05/31/2016 8:37 AM Berta Coleman RN documented as of this encounter Mental Status * Does person have difficulty concentrating/remembering/making decisions? Answer Entry Date Author No 05/31/2016 8:37 AM Berta Coleman RN documented in this encounter Plan of Treatment Not on file documented as of this encounter Visit Diagnoses Not on filedocumented in this encounter Care Teams Web Production Assistant Relationship Specialty Start Date End Date Lance Pringle MD [address] [facility] [address] [place] [address] PCP - General Internal Medicine 01/25/16 03/28/21 Peter Sommers DO [address] [place] [address] PCP - General Internal Medicine 03/29/21 [place] [address] [address] Physical Medicine and Rehabilitation 03/29/21 documented as of this encounter
--- OUTSIDE RECORDS SUMMARY | 2025-06-19 09:03 | XMS_ITS | Encounter Summary ---
Author Organization [facility] Address [address] [place] [address] Care Team Providers Care Electrical Contacts Adjuster Name Role Phone Peter Sommers DO Primary Care Provider [phone] Unknown, Notinfile Primary Care Provider Unavail able Reji Castellano MD Primary Care Provider [phone] Encounter Details Date Type Department Care Team (Late st Contact Info) Description 06/16/2024 Orders Only [facility] Health Information Management [address] [place] [address] Scanning, Provider Social History Tobacco Use Types Packs/Day Years Used Date Smoking Tobacco: Former Smokeless Tobacco: Never Comments:Quit in 50s, 1 PPD x 30 years Alcohol Use Standard Drinks/Week Comments Yes 0 (1 standard drink = 0.6 oz pur e alcohol) Comments Unknown Sex and Gender Information Value Date Recorded Sex Assigned at Not on file 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 Gender Identity Not on file Sexual Orientation Not on file documented as of this encounter Plan of Treatment Not on file documented as of this encounter Procedures Procedure Name Priority Date/Time Associated Diagnosis Comments CARDIOLOGY DOCUMENT SCAN 06/16/2024 documented in this encounter Results * Cardiology Document Scan (06/16/2024) Anatomical Region Laterality Modality Other us Provider Scanning CV CARDIAC SERVICES PROCEDURES Final Result documented in this encounter Visit Diagnoses Not on filedocumented in this encounter Care Teams Electrical Contacts Adjuster Relationship Specialty Start Date End Date Peter Sommers DO PCP - General Internal Medicine 04/22/19 01/11/25 Unknown, Notinfile PCP - General 01/12/25 02/02/25 Reji Castellano MD [address] [place] [address] PCP - General Family Practice 02/03/25 documented as of this encounter
--- OUTSIDE RECORDS SUMMARY | 2025-06-19 09:03 | XMS_ITS | Clinical Summary ---
Author Organization [facility] Address [address] [place] [address] Care Team Providers Care Cloth Inspector Name Role Phone Reji Castellano MD Primary Care Provider [phone] Allergies Active Allergy Reactions Criticality Noted Date Comments Codeine Hydrocodone Syncope Reaction: passes out, , Hydrocodone Bitartrate Unknown 11/27/2018 Omeprazole Rash Medium 04/26/2016 Rash Oxycodone-Acetaminophen Nausea And Vomiting Medications omeprazole 20 mg tablet,delayed release (DR/EC) 1 Tablet daily 0 0 4 Active nmqtcjkd-ymy-GT- lycopen-lutein (CENTRUM SILVER) 0.4-300-250 mg-mcg-mcg tablet 1 [...] 2 (two) times a day 4 Active albuterol HFA (PROVENTIL HFA,VENTOLIN HFA,PROAIR [...] mouth 2 (two) times a day Active umeclidinium-cuba anteroL (ANORO ELLIPTA) 62.5-25 mcg/actuation blister with device INHALE 1 PUFF BY MOUTH DAILY 180 each 11 5 Active Active Problems Problem Noted Date Diagnosed [...] Comments Hx Other Medical osteoarthritis; Comments: [facility] 07/14/2014 - Hypertension Hypertension Gastroesophageal reflux disease GERD Hx Other Medical history diverti culitis; Comments: [facility] 07/14/2014 - Hx Other Medical COPD; Comments: [facility] 07/14/2014 - Hx Other Medical restless leg sy ndrome; Comments: [facility] 07/14/2014 - Hx Other Medical history tobacco use; Comments: [facility] 07/14/2014 - Hx Other Medical bladder suspens ion; Comments: [facility] 07/14/2014 - Hx Other Medical bilateral knee replacement; Comments: [facility] 07/14/2014 - Syncope Family History [...] on file 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 Gender Identity Not on file Sexual Orientation Not on file Last Filed Vital Signs Vital Sign Reading Time Taken Comments Blood Pressure 130/78 02/23/2025 11:15 AM CDT Pulse 84 02/23/2025 11:15 AM CDT Temperature 36.1 C (97 F) 02/03/2025 1:44 PM CDT Respiratory Rate 18 02/03/2025 1:44 PM CDT Oxygen Saturation 96% 02/23/2025 11: 15 AM CDT Inhaled Oxygen Concentration - - Weight 85.1 kg (187 lb 11.2 oz) 025 11:15 AM CDT Height 160 cm (5' 3) 02/23/2025 11:15 AM CDT Body Mass Index 33.25 02/23/2025 11:15 AM CDT Plan of Treatment Health Maintenance Due Date Last Done Comments Depression Screening 1940 Fall Risk Assessment 1940 Osteoporosis Screening-Bone Density Scan 1940 DTaP/Tdap/Td Vaccine (1 - Tdap) 12/06/1950 Hepatitis B Screening 12/06/1957 Zoster Vaccine (1 of 2) 12/06/1989 Well Visit 65+ 12/06/2004 Influenza Vaccine (#1) 2025 9, 05/29/2018, 06/13/2017, Additional history exists Pneumococcal vaccine 65+ Completed 015, 08/19/2014, 03/24/2010 Insurance MEDICARE [facility] CHOICE PLUS AETNA MEDICARE MEDICARE [facility] CHOICE PLUS Advance Directives For more information, please contact: [phone] Documents on File Type Date Recorded Patient Wood Gluer Expl anation ADVANCE DIRECTIVE 04/27/2016 12:00 AM ROBI R OF TRANSCRIBER FINANCIAL/MEDICAL Care Teams Cloth Inspector Relationship Specialty Start Date End Date Reji Castellano MD [address] [place] [address] PCP - General Family Practice 02/03/25
--- OUTSIDE RECORDS SUMMARY | 2025-06-19 09:03 | XMS_ITS | Encounter Summary ---
Author Organization [facility] Address [address] [place] [address] Care Team Providers Care Human Resources Records Clerk Name Role Phone Lance Pringle MD Primary Care Provider [phone] Peter Sommers DO Primary Care Provider [phone] Juan Jose Anne MD Unavailable [phone] Encounter Details Date Type Department Care Team (Late st Contact Info) Description 11/08/2016 SS Outpatient Visit EXTERNAL NON-[facility] DEPT Unknown, [...] on filedocumented in this encounter Care Teams Human Resources Records Clerk Relationship Specialty Start Date End Date Lance Pringle MD [address] [facility] [address] [place] [address] PCP - General Internal Medicine 01/25/16 03/28/21 Peter Sommers DO [address] [place] [address] PCP - General Internal Medicine 03/29/21 [place] [address] [facility] [address] Physical Medicine and Rehabilitation 03/29/21 documented as of this encounter
--- OUTSIDE RECORDS SUMMARY | 2025-06-19 09:03 | XMS_ITS | Clinical Summary ---
Author Organization [facility] Address [address] [place] [address] Care Team Providers Care Production Supervisor Trainee Name Role Phone MatthieuPeter Oliver PARSONS Primary Care Provider [phone] Juan Jose Anne MD Unavailable [phone] Source Comments [facility],non-owned Affiliates and Associated Physician Practices is amultiple site organization consisting of ambulatory clinics and hospital sitesin [place], [place], [place] and [place]. This disclosure is being madepursuant to the Care Everywhere program and may not contain all information available regarding this patient. Last updated 18.[facility] Allergies Active Allergy Reactions Criticality Noted Date Comments Codeine 06/19/2013 Other reaction(s): Unknown Hydrocodone 01/25/2016 Omeprazole 06/19/2013 Oxycodone-Acetaminophen Nausea and/or Vomiting 03/22/2016 Medications * Be aware that medications may not be up to date on this document. Alwaysverify current medications with the patient. lisinopril (PRINIVIL; ZESTRIL) 2.5 MG tablet Take 2.5 mg by mouth once daily Active docusate sodium (COLACE) 50 MG capsule 50 mg 2 times daily Active omeprazole (PRILOSEC) 20 MG capsule 07/12/2016 Active Probiotic Product (PROBIOTIC DAILY PO) Active acetaminophen CR (TYLENOL ARTHRITIS PAIN) 650 MG tablet Take 650 mg by mouth Active fluticasone propionate (FLONASE) 50 MCG/ACT nasal spray SHAKE LIQUID AND USE 1 SPRAY IN EACH NOSTRIL TWICE DAILY 02/20/2021 Active albuterol HFA (PROVENTIL;VENT TIA;PROAIR) 108 (90 Base) MCG/ACT inhaler INHALE 2 PUFFS BY MOUTH EVERY 4 HOURS NEEDED FOR WHEEZING 12/06/2020 Active Calcium-Phospho jayna-Vitamin D (CITRACAL +D3 PO) Active Glucosamine HCl [...] wound dehiscence 04/17/2016 Blood loss 04/04/2016 Immunizations Immunization Administration Dates Next Due INFLUENZA VACCINE, HIGH-DOSE [...] 1:56 PM CDT Height 160 cm (5' 3) 03/29/2021 1:56 PM CDT Body Mass Index 32.42 03/29/2021 1:56 PM CDT Plan of Treatment Health Maintenance Due Date Last Done Comments BONE DENSITY TESTING 1940 DTAP/TDAP/TD VACCINES (1 - Tdap) 12/06/1958 PNEUMOCOCCAL VACCINE 50+ (1 of 1 - PCV) 12/06/1989 ZOSTER VACCINE (1 of 2) 12/06/1989 Respiratory Syncytial Virus (RSV) Vaccine Pt: or over 60 yrs (1 - 1-dose 75+ series) 12/06/2014 DEPRESSION SCREENING 08/06/2024 COVID-19 VACCINE (1 - season) 2025 INFLUENZA VACCINE (#1) 2025 0, 05/29/2018, 04/18/2016, Additional history exists HEPATITIS B VACCINE Aged Out No longe [...] this topic Medical Devices Implanted Type Area Automotive Parts Interpreter Device Identifier Shelf Expiration Date Model / Serial / Lot Putty Grft Bone Dbm Progenix 10cc Implanted:Qty: 1 on 04/04/2016 by Anuel Zabala MD at [facility] Spine Lumbar Medtronic [employer] 10/10/2017 [id number] / / [id number] Corelink, Crosslink 16mm Implanted:Qty: 1 on 04/04/2016 by Anuel Zabala MD at [facility] Spine Lumbar [id number] / / Corelink, 150mm Wilber Straight Implanted:Qty: 2 on 04/04/2016 by Anuel Zabala MD at [facility] Spine Lumbar [id number] / / Corelink, Wilber 18mm Implanted:Qty: 1 on 04/04/2016 by Anuel Zabala MD at [facility] Spine Lumbar [id number] / / Mini Connector, Corelink Implanted:Qty: 1 on 04/04/2016 by Anuel Zabala MD at [facility] Spine Lumbar [id number] / / Corelink, Extended Connector Implanted:Qty: 1 on 04/04/2016 by Anuel Zabala MD at [facility] Spine Lumbar [id number] / / Putty Grft Bone Dbm Progenix 10cc Implanted:Qty: 1 on 04/04/2016 by Anuel Zabala MD at [facility] Spine Lumbar Medtronic Sof[employer]or [employer] 10/10/2017 [id number] / / [id number] Bone Crush Canc 30cc Implanted:Qty: 1 on 04/04/2016 by Anuel Zabala MD at [facility] Spine Lumbar Allosource 12/11/2020 [id number] / / Corelink, 6.5mm X 45mm Srew Implanted:Qty: 5 on 04/04/2016 by Anuel Zabala MD at [facility] Spine Lumbar [id number] / / Corelink, 6.5mm X 50mm Screw Implanted:Qty: 5 on 04/04/2016 by Anuel Zabala MD at [facility] Spine Lumbar [id number] / / Corelink, Locking Nuts Implanted:Qty: 10 on 04/04/2016 by Anuel Zabala MD at [facility] Spine Lumbar [id number] / / Corelink, Connector Implanted:Qty: 8 on 04/04/2016 by Anuel Zabala MD at [facility] Spine Lumbar [id number] / / Corelink, 9mm Cage Implanted:Qty: 1 on 04/04/2016 by Anuel Zabala MD at [facility] Spine Lumbar [id number] / / Corelink, Cage 7mm Implanted:Qty: 1 on 04/04/2016 by Anuel Zabala MD at [facility] Spine Lumbar [id number] / / Insurance MEDICARE [facility] MEDICARE [facility] Advance Directives Documents on File Type Date Recorded Patient Clinical Trial Data Manager Expl anation Adv Directive/Living Will/POA 04/08/2016 10:05 [...] 3:14 PM 04/07/2016 1:54 PM Care Teams Production Supervisor Trainee Relationship Specialty Start Date End Date Peter Sommers DO [address] [place] [address] PCP - General Internal Medicine 03/29/21 [place] [address] [address] Physical Medicine and Rehabilitation 03/29/21
--- OUTSIDE RECORDS SUMMARY | 2025-06-19 09:03 | XMS_ITS | Encounter Summary ---
Author Organization [facility] Health Address [address] [place] [address] Care Team Providers Care Baked And Graphite Inspector Name Role Phone Lance Pringle MD Primary Care Provider [phone] Peter Sommers DO Primary Care Provider [phone] Juan Jose Anne MD Unavailable Encounter Details Date Type Department Care Team (Late st Contact Info) Description 08/21/2016 SS Outpatient Visit EXTERNAL NON-[facility] DEPT Unknown, [...] on filedocumented in this encounter Care Teams Baked And Graphite Inspector Relationship Specialty Start Date End Date Lance Pringle MD [address] [facility] [address] [place] [address] PCP - General Internal Medicine 01/25/16 03/28/21 Peter Sommers DO [address] [place] [address] PCP - General Internal Medicine 03/29/21 [place] [address] [facility] [address] [address] Physical Medicine and Rehabilitation 03/29/21 documented as of this encounter
--- OUTSIDE RECORDS SUMMARY | 2025-06-19 09:03 | XMS_ITS | Encounter Summary ---
Author Organization [facility] Health Address [address] [place] [address] Care Team Providers Care Knockout Man Name Role Phone Lance Pringle MD Primary Care Provider [phone] Peter Sommers DO Primary Care Provider [phone] Juan Jose Anne MD Unavailable [phone] Encounter Details Date Type Department Care Team [...] on filedocumented in this encounter Care Teams Knockout Man Relationship Specialty Start Date End Date Lance Pringle MD [address] [facility] [address] [place] [address] PCP - General Internal Medicine 01/25/16 03/28/21 Peter Sommers DO [address] [place] [address] PCP - General Internal Medicine 03/29/21 [place] [address] [address] [address] Physical Medicine and Rehabilitation 03/29/21 documented as of this encounter
--- OUTSIDE RECORDS SUMMARY | 2025-06-19 09:03 | XMS_ITS | Encounter Summary ---
Author Organization [facility] Healthcare Address [address] [place] [address] Care Team Providers Care Quill Picking Machine Operator Name Role Phone Peter Sommers DO Primary Care Provider [phone] Unknown, Notinfile Primary Care Provider Unavail able Reji Castellano MD Primary Care Provider [phone] Encounter Details Date Type Department Care Team (Late st Contact Info) Description 06/14/2024 Orders Only [facility] Health Information Management [address] [place] [id number] Scanning, Provider Social History Tobacco Use Types Packs/Day Years Used Date Smoking Tobacco: Former Smokeless Tobacco: Never Comments:Quit in 50s, 1 PPD x 30 years Alcohol Use Standard Drinks/Week Comments Yes 0 (1 standard drink = 0.6 oz pur e alcohol) Comments Unknown Sex and Gender Information Value Date Recorded Sex Assigned at Not on file 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 Gender Identity Not on file Sexual Orientation Not on file documented as of this encounter Plan of Treatment Not on file documented as of this encounter Procedures Procedure Name Priority Date/Time Associated Diagnosis Comments SCAN - RADIOLOGY/IMAGING 06/14/2024 documented in this encounter Results * SCAN - RADIOLOGY/IMAGING (06/14/2024) Anatomical Region Laterality Modality Other us Provider Scanning Final Result documented in this encounter Visit Diagnoses Not on filedocumented in this encounter Care Teams Quill Picking Machine Operator Relationship Specialty Start Date End Date Peter Sommers DO PCP - General Internal Medicine 04/22/19 01/11/25 Unknown, Notinfile PCP - General 01/12/25 02/02/25 Reji Castellano MD [address] [place] [address] PCP - General Family Practice 02/03/25 documented as of this encounter
--- OUTSIDE RECORDS SUMMARY | 2025-06-19 09:03 | XMS_ITS | Encounter Summary ---
Author Organization [facility] Address [address] [place] [address] Care Team Providers Care Professor Of Legal Studies Name Role Phone Lance Pringle MD Primary Care Provider [phone] Peter Sommers DO Primary Care Provider [phone] Juan Jose Anne MD Unavailable [phone] Encounter Details Date Type Department Care Team (Late st Contact Info) Description 06/16/2020 Lab Requisition [facility] [address] [facility], [place] [id number] [phone] Eva Bar MD [address] [facility] 3 [place] [address] Social History Tobacco Use Types Packs/Day Years [...] 05/31/2016 8:37 AM Berta Coleman RN * Is person blind or have [...] Comments DERMATOPATHOLOGY Routine 06/15/2020 12:0 0 AM CAR FILLER documented in this encounter Results * DERMATOPATHOLOGY (06/15/2020 12:00 AM CAR FILLER) Case Report Dermatopathology Report Case: [id number] Authorizing Provider: Eva Bar MD Collected: 06/15/2020 12:00 AM Ordering Location: [facility] Lab Received: 06/16/2020 07:55 AM Pathologist: Shy Schmid MD Specimen: Skin, right neck 0 5:38 PM [facility] Final Diagnosis Specimen A. SKIN, right neck: DERMAL SCAR RESIDUAL SQUAMOUS CELL CARCINOMA NOT IDENTIFIED (L90.5) 0 5:38 PM [facility] at [address] [facility]ER Clinical History R/O SCC, well differentiated, bx proven. 0 5:38 PM [facility] Gross Description Specimen A: Received is one formalin filled container labeled with the patient's name and designated right neck. The specimen consists of a non-oriented ellipse of skin measuring [id number]. The epidermal surface consists of a centrally located 3x3mm previous biopsy site. The margin is inked green. The 12 o'clock and 6 o'clock tips are submitted in cassette 1. The remainder of the ellipse is serially sectioned and submitted in cassettes 2-3. Jar 0. 0 5:38 PM [facility] DERMATOPATHOLOGY LABORATORY Microscopic Description Specimen A. SKIN, right neck: There are fibroblasts and collagen bundles oriented parallel to the skin surface. There are elongated blood vessels, some of which are oriented perpendicular to the skin surface. No residual squamous cell carcinoma is identified. 0 5:38 PM [facility] DERMATOPATHOLOGY LABORATORY Disclaimer An external and internal positive and negative controls are appropriate for the histochemical, immunohistochemical and immunofluorescence stain(s) in this case (if any), except where stated explicitly. The performance characteristics of the stain(s) cited in this report were developed and its performance characteristic determined by the Dermatopathology Laboratory at [facility], directed by Dr. Devin Schmid. These tests need not be, and therefore are not, approved by the [place] Food and Drug Administration. The tests are used for clinical purposes. Billing Codes Specimen Charges Stain Charges 36506 1 0 5:38 PM [facility] Embedded Images 0 5:38 PM [facility] DERMATOPATHOLOGY LABORATORY Pathology/Cytolog y TISSUE SPECIMEN FROM SKIN / Unknown 06/15/2020 06/16/2020 7:55 AM CAR FILLER us Eva Bar MD LAB - PATHOLOGY/CYTOLOGY ORD ERABLES Final Result DERMATOPATHOLOGY LABORATORY [facility] - Department of Dermatology [facility] Medicine [address] [place] [address], [address] [place] [address], [facility] [phone] documented in this encounter Visit Diagnoses Not on filedocumented in this encounter Care Teams Professor Of Legal Studies Relationship Specialty Start Date End Date Lance Pringle MD [address] [address] PCP - General Internal Medicine 01/25/16 03/28/21 Peter Sommers DO [address] [place] [address] PCP - General Internal Medicine 03/29/21 [place] [address] [place] [address] Physical Medicine and Rehabilitation 03/29/21 documented as of this encounter
--- OUTSIDE RECORDS SUMMARY | 2025-06-19 09:03 | XMS_ITS | Clinical Summary ---
Author Organization [facility] Address [address] [place] [address] Care Team Providers Care Sales Manager Prearranged Funerals Name Role Phone Reji Castellano MD Primary Care Provider [phone] Encounters Date Type Department Care Team Description 03/25/2025 2:30 PM CDT Office Visit [facility] Audiology [address] [place] [address] [id number] Kenna Leyva AUD Hearing Aid Check 03/25/2025 Travel from Last 3 Months Social History Tobacco Use Types Packs/Day Years Used Date Smoking Tobacco: Never Assessed Comments Unknown Sex and Gender Information Value Date Recorded Sex Assigned at Not on file Legal Sex Female 6:32 PM CDT Gender Identity Not on file Sexual Orientation Not on file Plan of Treatment Upcoming Encounters Date Type Department Care Team (Late st Contact Info) Description 07/15/2025 1:30 PM AUTO CLUTCH SPECIALIST Office Visit [facility] Audiology [address] [place] [address] Kenna Leyva AUD [address] [place] [address] Health Maintenance Due Date Last Done Comments Annual Medicare Wellness Visit 12/06/2004 DTaP, Tdap and Td Vaccines (2 - Td or Tdap) 05/09/2020 05/09/2010 Zoster Vaccines (2 of 3) 08/11/2022 022, 04/20/2022, 01/08/2008 COVID-19 Vaccine ( season) 2025 03/14/2023, 05/29/2022, 12/25/2021, Additional history exists Influenza Adult (#1) 2025 05/29/2022, 07/25/2021, 05/05/2019, Additional history exists Pneumococcal Vaccine: 50+ Years Completed 05/17/2023, 06/10/2015, 08/19/2014, Additional history exists RSV Immunization or 60+ Years Completed 07/18/2023 Hepatitis A Vaccines Aged Out No long er eligible based on patient's age to complete this topic Meningococcal B Vaccine Aged Out No l onger eligible based on patient's age to complete this topic Meningococcal Vaccine Aged Out No sumeet denton eligible based on patient's age to complete this topic RSV Immunizations Under 20 Months Aged Out No longer eligible based on patient's age to complete this topic Insurance [employer] MEDICARE Advance Directives Documents on File Type Date Recorded Patient Webmethods Architect Expl anation Legal Documents 12/21/2020 10:08 AM FRUIT AND VEGETABLE INSPECTOR S LICENSE Care Teams Sales Manager Prearranged Funerals Relationship Specialty Start Date End Date Reji Castellano MD [address] [place], [place] [id number] PCP - General FAMILY PRACTICE 06/27/24
--- OUTSIDE RECORDS SUMMARY | 2025-06-19 09:03 | XMS_ITS | Encounter Summary ---
Author Organization [facility] Health Address [address] [place] [address] Care Team Providers Care Corrections Sergeant Name Role Phone Lance Pringle MD Primary Care Provider [phone] Peter Sommers DO Primary Care Provider [phone] Juan Jose Anne MD Unavailable [phone] Encounter Details Date Type Department Care Team (Late st Contact Info) Description 01/30/2017 SS Outpatient Visit EXTERNAL NON-[facility] DEPT Unknown, [...] on filedocumented in this encounter Care Teams Corrections Sergeant Relationship Specialty Start Date End Date Lance Pringle MD [address] [facility] [address] [place] [address] PCP - General Internal Medicine 01/25/16 03/28/21 Peter Sommers DO [address] [place] [address] PCP - General Internal Medicine 03/29/21 [place] [address] [facility] [address] [address] Physical Medicine and Rehabilitation 03/29/21 documented as of this encounter
--- OUTSIDE RECORDS SUMMARY | 2025-06-19 09:04 | XMS_ITS | Encounter Summary ---
Author Organization [facility] Health Address [address] [facility] [place] [address] Care Team Providers Care Die Presser Name Role Phone Lance Pringle MD Primary Care Provider [phone] Peter Sommers DO Primary Care Provider [phone] Juan Jose Anne MD Unavailable Encounter Details Date Type Department Care Team (Late st Contact Info) Description 04/04/2016 [facility] Outpatient Visit [address] [address] Anuel Zabala MD [address] [place] [address] Social History Tobacco Use Types Packs/Day [...] as of this encounter Functional Status * Functional and Cognitive Status Question Answer Date of Assessment Author Is person deaf or have serious hearing difficulty? No 04/04/2016 6:07 AM Shelly Martínez RN Is person blind or have serious difficulty seeing? No 04/04/2016 6:07 AM Preethi Martínez RN Does person have serious difficulty walking/climbing stairs? No 04/04/2016 6:07 AM Bridgette Martínez RN Does person have difficulty dressing/bathing? No 04/04/2016 6:07 AM Bridgette Martínez RN Does person have difficulty doing errands alone? No 04/04/2016 6:07 AM Ella Martínez RN Does person have difficulty concentrating/remembering/rebeca ing decisions? No 04/04/2016 6:07 AM Bridgette Martínez RN * Is person deaf or have serious hearing difficulty? Answer Date of Assessment Author No 04/04/2016 6:07 AM Shelly Martínez RN * Is person blind or have serious difficulty seeing? Answer Date of Assessment Author No 04/04/2016 6:07 AM Shelly Martínez RN * Does person have serious difficulty walking/climbing stairs? Answer Date of Assessment Author No 04/04/2016 6:07 AM Shelly Martínez RN * Does person have difficulty dressing/bathing? Answer Date of Assessment Author No 04/04/2016 6:07 AM Shelly Martínez RN * Does person have difficulty doing errands alone? Answer Date of Assessment Author No 04/04/2016 6:07 AM Shelly Martínez RN documented as of this encounter Mental Status * Does person have difficulty concentrating/remembering/making decisions? Answer Entry Date Author No 04/04/2016 6:07 AM Shelly Martínez RN documented in this encounter Plan of Treatment Not on file documented as of this encounter Visit Diagnoses Not on filedocumented in this encounter Care Teams Die Presser Relationship Specialty Start Date End Date Lance Pringle MD [address] [address] PCP - General Internal Medicine 01/25/16 03/28/21 Peter Sommers DO [address] [place] [address] PCP - General Internal Medicine 03/29/21 [place] [address] [address] Physical Medicine and Rehabilitation 03/29/21 documented as of this encounter
== END 2025-06-19 08:55 | disposition left against medical advice (07) ==
LOC: ANHED 08:48
PROVIDERS: Emergency Provider Student in an Organized Health Care Education/Training Program; PCP Nurse Practitioner Family
DX: M25.561 Pain in right knee (principal)
CPT/HCPCS: 73562; 99199